=== PATIENT | male | born 1955 | race African-American/Black ===

== ENCOUNTER 2016-08-15 11:35 | Inpatient (IN) | payer OTHER ==
[2016-08-15 12:18] VITALS: BMI 24.0
--- NOTE | 2016-08-15 13:40 | HP ---
CIWA Score - CIWA Score Nausea/Vomitin Muscle Tremors: 3 Anxiety: 3 Agitation: 3 Paroxysmal Sweats: 1-Minimal Palms Moist Orientation: 0-Oriented Tacttile Disturbances: 2-Mild Itch/Numbness/Burn Auditory Disturbances: 2-Mild Harshness/Frighten Visual Disturbances: 2-Mild Sensitivity Headache: 2-Mild CIWA-Ar Total Score: 21 Admission ROS BHS - HPI Chief Complaint: I NEED HELP TO STOP DRINKING ALCOHOL Allergies/Adverse Reactions: Allergies Allergy/AdvReac Type Severity Reaction Status Date / Time morphine Allergy Severe Rash Verified 08/15/16 13:30 History of Present Illness: THIS 61 YEARS OLD RODAS WITH ALCOHOL DEPENDENCE WITH WITHDRAWAL SYMPTOM,LAST DETOX [facility] LAST SEIZURE 2013 SYNCOPE DEPRESSION S/P SURGERY BYPASS LEFT LEG IN 2014 AMBULATION WITH CANE IN 2016 LONGEST PERIOD OF SOBRIETY 7 YEARS HISTORY OF CANCER OF KIDNEY RIGHT UNDER THE CARE OF DOCTOR ,FOLLOWED UP WITH PMD ASTHMA HIV Exam Limitations: No Limitations - Ebola screening Have you traveled outside of the country in the last 21 days: No Have you had contact with anyone from an Ebola affected area: No Have you been sick,other than usual withdrawal symptoms: No Do you have a fever: No - Review of Systems Constitutional: Loss of Appetite, Malaise, Night Sweats, Changes in sleep, Weakness, Unintentional Wgt. Loss EENT: reports: Nose Congestion Respiratory: reports: No Symptoms reported Cardiac: reports: Palpitations GI: reports: Nausea, Poor Appetite, Vomiting, Abdominal cramping : reports: No Symptoms Reported Musculoskeletal: reports: Back Pain, Muscle Pain, Other (S/P VASCULAR SURGERY PF LEFT LEG) Integumentary: reports: Dryness Neuro: reports: Headache, Tremors Endocrine: reports: No Symptoms Reported Hematology: reports: Other (HIV) Psychiatric: reports: Depressed Patient History - Patient Medical History Hx Anemia: No Hx Asthma: Yes (ON ALBUTEROL INHALER) Hx Chronic Obstructive Pulmonary Disease (COPD): Yes Hx Cancer: No Hx Cardiac Disorders: Yes (S/P ANGIOPLASTY 3 VESSELS 06/25 ) Hx Congestive Heart Failure: No Hx Hypertension: Yes (NON COMPLIANCE) Hx Hypercholesterolemia: Yes (can't remember name of meds) Hx Pacemaker: No HX Cerebrovascular Accident: Yes (IN 2005) Hx Seizures: Yes (2014) Hx Dementia: No Hx Diabetes: No Hx Gastrointestinal Disorders: No Hx Liver Disease: No Hx Genitourinary Disorders: Yes (CANCER OF KIDNEY?) Hx Sexually Transmitted Disorders: Yes (Gonerrhea) Hx Renal Disease (ESRD): No Hx Thyroid Disease: No Hx Human Immunodeficiency Virus (HIV): Yes (atripla; last cd4 580 viral load 1000) Hx Hepatitis C: Yes Hx Depression: Yes (ON SEROQUEL) Hx Suicide Attempt: No Hx Bipolar Disorder: No Hx Schizophrenia: No Other Medical History: NO SUICIDAL,NO HOMICIDAL - Patient Surgical History Past Surgical History: Yes Hx Neurologic Surgery: No Hx Cataract Extraction: No Hx Cardiac Surgery: No Hx Lung Surgery: No Hx Breast Surgery: No Hx Breast Biopsy: No Hx Abdominal Surgery: No Hx Appendectomy: No Hx Cholecystectomy: No Hx Genitourinary Surgery: No Hx Section: No Hx Orthopedic Surgery: No Hx Hysterectomy: No Other Surgical History: left fem pop bypass 3 yrs ago Anesthesia Reaction: No - PPD History Previous Implant?: Yes Documented Results: Negative w/o proof Date: 09/30/14 PPD to be Administered?: Yes - Smoking Cessation Smoking history: Current every day smoker Have you smoked in the past 12 months: Yes Aproximately how many cigarettes per day: 5 Cigars Per Day: 0 Hx Chewing Tobacco Use: No Initiated information on smoking cessation: Yes 'Breaking Loose' booklet given: 08/15/16 - Substance & Tx. History Hx Alcohol Use: Yes Hx Substance Use: Yes Substance Use Type: Alcohol, Cocaine Hx Substance Use Treatment: Yes - Substances Abused Alcohol Route: Oral Frequency: Daily Amount used: 2 pints of sánchez Age of first use: 23 Date of Last Use: 08/14/16 Crack Route: Smoking Frequency: 1-2 times per week Amount used: 50$ Age of first use: 38 Date of Last Use: 08/14/16 Family Disease History - Family Disease History Family Disease History: Heart Disease: Father Admission Physical Exam BHS - Vital Signs Vital Signs: Vital Signs - 24 hr 08/15/16 12:15 Temperature 97.4 F L Pulse Rate 92 H Respiratory 18 Rate Blood Pressure 150/109 - Physical General Appearance: Yes: Moderate Distress, Tremorous, Irritable, Sweating, Anxious HEENTM: Yes: Nasal Congestion Respiratory: Yes: Lungs Clear Neck: Yes: Within Normal Limits Breast: Yes: Within Normal Limits Cardiology: Yes: Within Normal Limits, Regular Rhythm, Regular Rate, S1, S2 Abdominal: Yes: Within Normal Limits, Normal Bowel Sounds, Non Tender, Flat, Soft Genitourinary: Yes: Other (HISTORY OF CANCER OF RIGHT KIDNEY?) Back: Yes: Muscle Spasm Musculoskeletal: Yes: Back pain, Muscle Pain Extremities: Yes: Tremors, Other (S/P FEMOROPOPLITEAL BYPASS LEFT) Neurological: Yes: fruit sorter II-XII NML intact, Fully Oriented, Alert, Motor Strength 5/5 Integumentary: Yes: Dry Lymphatic: Yes: Within Normal Limits - Diagnostic (1) Alcohol dependence with uncomplicated withdrawal Current Visit: Yes Status: Acute (2) Cocaine dependence Current Visit: Yes Status: Acute (3) Seizure Current Visit: Yes Status: Acute (4) Syncope Current Visit: Yes Status: Acute (5) Depression Current Visit: Yes Status: Acute (6) HIV (human immunodeficiency virus infection) Current Visit: No Status: Acute (7) Asthma Current Visit: Yes Status: Acute (8) COPD (chronic obstructive pulmonary disease) Current Visit: Yes Status: Acute (9) Hepatitis C Current Visit: Yes Status: Acute (10) CAD (coronary artery disease) Current Visit: Yes Status: Acute (11) Status post angioplasty Current Visit: Yes Status: Acute (12) Old cerebrovascular accident without late effect Current Visit: Yes Status: Acute (13) Nicotine dependence Current Visit: Yes Status: Acute (14) Cancer of right kidney Current Visit: Yes Status: Acute (15) Weight loss Current Visit: Yes Status: Acute (16) Use of cane as ambulatory aid Current Visit: Yes Status: Acute Cleared for Admission [facility] - Detox or Rehab [facility] Level of Care: Medically Managed Detox Regimen/Protocol: Librium [facility] Breath Alcohol Content Breath Alcohol Content: 0 Urine Drug Screen - Results Drug Screen Negative: No Urine Drug Screen Results: MAXX-Cocaine, BZO-Benzodiazepines
[2016-08-15] MEDS ORDERED: P-EPHED 60MG/TRIPROLIDI 2.5MG TABLET PO PRN (14:13)
[2016-08-15] MEDS ORDERED: chlordiazePOXIDE HCL 25 MG CAPSULE PO PRN (14:13)
[2016-08-15] MEDS ORDERED: ACETAMINOPHEN 325 MG TABLET (FP) PO PRN (14:13)
[2016-08-15] MEDS ORDERED: MAG HYDROX/AL HYDROX/SIMETH 30 ML UNIT-DOSE CUP PO PRN (14:13)
[2016-08-15] MEDS ORDERED: MAGNESIUM HYDROX 2400MG/30ML ORAL SUSPENSION 30 ML CUP PO PRN (14:13)
[2016-08-15] MEDS ORDERED: LOPERAMIDE HCL 2 MG CAPSULE PO PRN (14:13)
[2016-08-15] MEDS ORDERED: MENTHOL/PHENOL 1 EACH UD MM PRN (14:13)
[2016-08-15] MEDS ORDERED: IBUPROFEN 400 MG TABLET (FP) PO PRN (14:13)
[2016-08-15] MEDS ORDERED: MAGNESIUM CITRATE 300 ML BOTTLE PO PRN (14:13)
[2016-08-15] MEDS ORDERED: hydrOXYzine PAMOATE 25 MG CAPSULE (FP) PO PRN (14:13)
[2016-08-15] MEDS ORDERED: chlordiazePOXIDE HCL 25 MG CAPSULE PO ONE (14:13)
[2016-08-15] MEDS ORDERED: guaiFENesin/D-METHORPHAN HB 10 ML UNIT-DOSE CUPS PO PRN (14:13)
--- NOTE | 2016-08-15 14:28 | PN ---
BHS Progress Note Note: HISTORY OF PULMONARY EMBOLISM
[2016-08-15 17:36] LABS: URINE APPEARANCE CLEAR; URINE BILIRUBIN NEGATIVE (NEGATIVE); URINE COLOR YELLOW; URINE GLUCOSE (UA) NEGATIVE (NEGATIVE); URINE KETONE NEGATIVE (NEGATIVE); URINE LEUK ESTERASE NEGATIVE (NEGATIVE); URINE NITRITE NEGATIVE (NEGATIVE); URINE UROBILINOGEN NEGATIVE E.U./dl (0.2-1.0)
[2016-08-15 17:49] LABS: URINE BLOOD 1+ (NEGATIVE); URINE PROTEIN 2+ (NEGATIVE)
[2016-08-15 17:58] LABS: URINE MUCUS RARE; URINE RBC 1 /hpf (0-3); URINE WBC 1 /hpf (3-5)
[2016-08-15] MEDS: chlordiazePOXIDE HCL 25 MG CAPSULE PO SCH ×2 (18:13→22:12)
[2016-08-15] MEDS: GABAPENTIN 400 MG CAPSULE (FP) PO SCH (22:12)
[2016-08-15] MEDS: hydrALAZINE HCL 50 MG TABLET (FP) PO SCH (22:12)
[2016-08-15] MEDS: THIAMINE HCL 100 MG TABLET (FP) PO SCH (22:12)
[2016-08-15] MEDS: CARVEDILOL 12.5 MG TABLET (FP) PO SCH (22:12)
[2016-08-15] MEDS: APIXABAN 5 MG TABLET PO SCH (22:12)
[2016-08-15] MEDS: diphenhydrAMINE HCL 50 MG CAPSULE PO PRN (22:13)
--- NOTE | 2016-08-16 00:03 | EKG ---
Test Reason : Blood Pressure : / mmHG Vent. Rate : 083 BPM Atrial Rate : 083 BPM P-R Int : 124 ms QRS Dur : 088 ms QT Int : 378 ms P-R-T Axes : 063 051 005 degrees QTc Int : 444 ms SINUS RHYTHM WITH FREQUENT PREMATURE VENTRICULAR COMPLEXES POSSIBLE LEFT ATRIAL ENLARGEMENT INFEROLATERAL ISCHEMIA ABNORMAL ECG WHEN COMPARED WITH ECG OF 15-SEP-2011 09:21, PREMATURE VENTRICULAR COMPLEXES ARE NOW PRESENT ST NOW DEPRESSED IN INFERIOR LEADS T-WAVE INVERSION IN LATERAL LEADS IS NOW PRESENT Confirmed by REYNA MADRIGAL, RENATO ([id number]) on 08/16/2016 12:03:30 AM Referred By: Confirmed By:RENATO ORELLANA MD
[2016-08-16] MEDS: hydrALAZINE HCL 50 MG TABLET (FP) PO SCH ×3 (05:57→22:17)
[2016-08-16] MEDS: chlordiazePOXIDE HCL 25 MG CAPSULE PO SCH ×4 (05:57→22:16)
[2016-08-16] MEDS: PRENATAL VITAMINS W/ FOLIC ACID TABLET (FP) PO SCH (10:09)
[2016-08-16] MEDS: GABAPENTIN 400 MG CAPSULE (FP) PO SCH ×2 (10:09→22:17)
[2016-08-16] MEDS: APIXABAN 5 MG TABLET PO SCH ×2 (10:09→22:17)
[2016-08-16] MEDS: amLODIPine BESYLATE 5 MG TABLET (FP) PO SCH (10:09)
[2016-08-16] MEDS: CARVEDILOL 12.5 MG TABLET (FP) PO SCH ×2 (10:09→22:17)
[2016-08-16] MEDS: ASPIRIN 81 MG CHEWABLE TABLETS PO SCH (10:09)
[2016-08-16 10:10] LABS: MCH 28.5 pg (25.7-33.7); MCHC 32.4 g/dl (32.0-35.9); MEAN CELL VOLUME 87.8 fl (80-96); PLATELET COUNT 125 K/MM3 (134-434); RDW 15.5 % (11.9-15.9); WHITE BLOOD COUNT 4.8 K/mm3 (4.0-10.0)
[2016-08-16] MEDS: CLOPIDOGREL BISULFATE 75 MG TABLET (FP) PO SCH (10:10)
[2016-08-16 10:23] LABS: ALBUMIN 3.5 g/dl (3.4-5.0); BILIRUBIN,TOTAL 0.6 mg/dL (0.2-1.0); CALCIUM 9.3 mg/dL (8.5-10.1); CREATININE 1.8 mg/dL (0.7-1.3); TOT PROT 7.6 g/dl (6.4-8.2)
[2016-08-16] MEDS: NIFEdipine E.R 60 MG TABLET (UD) PO SCH (10:41)
[2016-08-16] MEDS: ISOSORBIDE MONONITRATE 30 MG TAB.SR.24H (FP) PO SCH (10:41)
--- NOTE | 2016-08-16 11:41 | CONSULT ---
[facility] Psychiatric Consult - Data Date of interview: 08/16/16 Admission source: [facility] Identifying data: Readmission to [facility] for this 61 y/o AA male seeking detox treatment on for alcohol and cocaine (crack) dependence.Patient is single without children,homeless,unemployed and supported on [employer] funds. Substance Abuse History: - Smoking Cessation. Smoking history: Current every day smoker. Have you smoked in the past 12 months: Yes. Aproximately how many cigarettes per day: 5. Cigars Per Day: 0. Hx Chewing Tobacco Use: No. Initiated information on smoking cessation: Yes. 'Breaking Loose' booklet given : 08/15/16. - Substance & Tx. History. Hx Alcohol Use: Yes. Hx Substance Use : Yes. Substance Use Type: Alcohol, Cocaine. Hx Substance Use Treatment: Yes. - Substances Abused. Alcohol. Route: Oral. Frequency: Daily. Amount used: 2 pints of sánchez. Age of first use: 23. Date of Last Use: 08/14/16. * * Crack. Route: Smoking. Frequency: 1-2 times per week. Amount used: 50$. Age of first use: 38. Date of Last Use: 08/14/16. Confirmed by the patient. Medical History: Bronchial asthma,hypertension,CAD (post-angioplasty),CVA in 1989,COPD,alcohol-related withdrawal,hepatitis C,DVT in left leg, hypergcholesterolemia,left femoro-popliteal bypass,unclear history of Ca of right kidney and past treatment for gonorrhea. Psychiatric History: No history of psychiatric hospitalizations.Patient is however diagnossed with MDD and he is followed at the [facility] for medication management.He is on seroquel 100 mg po hs.No history of suicide attempts. Physical/Sexual Abuse/Trauma History: Patient denies. Additional Comment: Urine Drug Screen Results: MAXX-Cocaine, BZO- Benzodiazepines.Noted. Mental Status Exam - Mental Status Exam Alert and Oriented to: Time, Place, Person Cognitive Function: Good Patient Appearance: Well Groomed Mood: Hopeful, Euthymic Affect: Appropriate, Normal Range Patient Behavior: Fatigued, Appropriate, Cooperative Speech Pattern: Clear, Appropriate Voice Loudness: Normal Thought Process: Goal Oriented Thought Disorder: Not Present Hallucinations: Denies Suicidal Ideation: Denies Homicidal Ideation: Denies Insight/Judgement: Fair Sleep: Poorly, Difficulty falling asleep Appetite: Fair Gait/Station: Other (walks with a cane.) Psychiatric Findings - Problem List ([place] 1, 2,3) (1) Alcohol dependence with uncomplicated withdrawal Current Visit: Yes Status: Acute (2) Cocaine dependence Current Visit: Yes Status: Acute (3) Hepatitis C Current Visit: Yes Status: Acute (4) Nicotine dependence Current Visit: Yes Status: Acute (5) Old cerebrovascular accident without late effect Current Visit: Yes Status: Chronic (6) Status post angioplasty Current Visit: Yes Status: Chronic (7) Drug-induced mood disorder Current Visit: Yes Status: Acute (8) HIV (human immunodeficiency virus infection) Current Visit: Yes Status: Chronic (9) Asthma Current Visit: Yes Status: Chronic (10) CAD (coronary artery disease) Current Visit: Yes Status: Chronic (11) COPD (chronic obstructive pulmonary disease) Current Visit: Yes Status: Chronic (12) Cancer of right kidney Current Visit: Yes Status: Chronic - Initial Treatment Plan Initial Treatment Plan: Psychoeducation.Detoxification.Seroquel 100 mg po hs.Side effects/benefits discussed with patient.He agrees with this careplan.Observation.
--- NOTE | 2016-08-16 13:22 | PN ---
[facility] CIWA - CIWA Score Nausea/Vomitin-No Nausea/No Vomiting Muscle Tremors: 4-Moderate,w/Arms Extend Anxiety: 3 Agitation: 3 Paroxysmal Sweats: 3 Orientation: 1-Uncertain about Date Tacttile Disturbances: 2-Mild Itch/Numbness/Burn Auditory Disturbances: 0-None Visual Disturbances: 1-Very Mild Sensitivity Headache: 0-None Present CIWA-Ar Total Score: 17 S Progress Note (SOAP) Subjective: Tremors, Diarrhea, Interrupted sleep. Pt. currently ambulating with cane but requesting Wheelchair due to previous injury to sole left foot approx. 1 month ago. Pt. was evaluated at Er and given stitches for wound. Objective: PT. A & O X 2 (Disoriented about day / date). Scabbed wound noted on sole of left foot, near balls of feet. No bleeding, unusual discharge, or sign of infection noted.) 08/16/16 13:20 Vital Signs Temperature 95.6 F L 08/16/16 13:07 Pulse Rate 73 08/16/16 13:07 Respiratory Rate 18 08/16/16 13:07 Blood Pressure 110/72 08/16/16 13:07 O2 Sat by Pulse Oximetry (%) Laboratory Last Values WBC 4.8 K/mm3 (4.0-10.0) D 08/16/16 07:00 RBC 4.36 M/mm3 (4.00-5.60) 08/16/16 07:00 Hgb 12.4 GM/dL (11.7-16.9) 08/16/16 07:00 Hct 38.3 % (35.4-49) 08/16/16 07:00 MCV 87.8 fl (80-96) 08/16/16 07:00 MCHC 32.4 g/dl (32.0-35.9) 08/16/16 07:00 RDW 15.5 % (11.9-15.9) 08/16/16 07:00 Plt Count 125 K/MM3 (134-434) L 08/16/16 07:00 MPV 10.0 fl (7.5-11.1) 08/16/16 07:00 Sodium 137 mmol/L (136-145) 08/16/16 07:00 Potassium 4.0 mmol/L (3.5-5.1) 08/16/16 07:00 Chloride 103 mmol/L (98-107) 08/16/16 07:00 Carbon Dioxide 24 mmol/L (21-32) 08/16/16 07:00 Anion Gap 10 (8-16) 08/16/16 07:00 BUN 36 mg/dL (7-18) H D 08/16/16 07:00 Creatinine 1.8 mg/dL (0.7-1.3) H D 08/16/16 07:00 Creat Clearance w eGFR 38.30 (>60) 08/16/16 07:00 Random Glucose 141 mg/dL (74-106) H D 08/16/16 07:00 Calcium 9.3 mg/dL (8.5-10.1) 08/16/16 07:00 Total Bilirubin 0.6 mg/dL (0.2-1.0) D 08/16/16 07:00 AST 68 U/L (15-37) H D 08/16/16 07:00 ALT 55 U/L (12-78) D 08/16/16 07:00 Alkaline Phosphatase 106 U/L (45-117) 08/16/16 07:00 Total Protein 7.6 g/dl (6.4-8.2) 08/16/16 07:00 Albumin 3.5 g/dl (3.4-5.0) D 08/16/16 07:00 Urine Color Yellow 08/15/16 Unknown Urine Appearance Clear 08/15/16 Unknown Urine pH 5.0 (5.0-8.0) 08/15/16 Unknown Ur Specific [place] 1.020 (1.001-1.035) 08/15/16 Unknown Urine Protein 2+ (NEGATIVE) H 08/15/16 Unknown Urine Glucose (UA) Negative (NEGATIVE) 08/15/16 Unknown Urine Ketones Negative (NEGATIVE) 08/15/16 Unknown Urine Blood 1+ (NEGATIVE) H 08/15/16 Unknown Urine Nitrite Negative (NEGATIVE) 08/15/16 Unknown Urine Bilirubin Negative (NEGATIVE) 08/15/16 Unknown Urine Urobilinogen Negative E.U./dl (0.2-1.0) 08/15/16 Unknown Ur Leukocyte Esterase Negative (NEGATIVE) 08/15/16 Unknown Urine RBC 1 /hpf (0-3) 08/15/16 Unknown Urine WBC 1 /hpf (3-5) 08/15/16 Unknown Urine Mucus Rare 08/15/16 Unknown RPR Titer Nonreactive (NONREACTIVE) 08/16/16 07:00 LABS NOTED. 08/16/16 13:25 Assessment: 08/16/16 13:22 WITHDRAWAL SYMPTOMS. Plan: CONTINUE DETOX. WHEELCHAIR ORDERED FOR PT. DAQUAN BANDAGE WITH GAUZE FOR WOUND ON LEFT FOOT. PT. ADVISED TO FOLLOW-UP WITH [facility] REHAB MEDICAL PROVIDER AFTER DISCHARGE FROM DETOX FOR GENERAL MEDICAL ASSESSMENT, FOR ABNORMAL LAB VALUES, AND FOR HISTORY OF INJURY TO LEFT FOOT.
[2016-08-16] MEDS: THIAMINE HCL 100 MG TABLET (FP) PO SCH (22:16)
[2016-08-16] MEDS: diphenhydrAMINE HCL 50 MG CAPSULE PO PRN (22:17)
[2016-08-16] MEDS: QUEtiapine FUMARATE 100 MG TABLET (FP) PO SCH (22:17)
[2016-08-17] MEDS: hydrALAZINE HCL 50 MG TABLET (FP) PO SCH ×3 (05:46→22:14)
[2016-08-17] MEDS: chlordiazePOXIDE HCL 25 MG CAPSULE PO SCH ×2 (06:23→10:27)
--- NOTE | 2016-08-17 09:58 | PN ---
S CIWA - CIWA Score Nausea/Vomitin-No Nausea/No Vomiting Muscle Tremors: 3 Anxiety: 3 Agitation: 4-Moderately Restless Paroxysmal Sweats: 3 Orientation: 0-Oriented Tacttile Disturbances: 0-None Auditory Disturbances: 0-None Visual Disturbances: 0-None Headache: 0-None Present CIWA-Ar Total Score: 13 BHS Progress Note (SOAP) Subjective: ANXIETY,TREMORS,SWEATING,INTERRUPTED SLEEP,RESTLESS. Objective: 08/17/16 09:56 Vital Signs - 8 hr 08/17/16 08/17/16 08/17/16 03:39 06:33 09:48 Temperature 97.0 F L 96.2 F L Pulse Rate 64 53 L Respiratory 18 16 18 Rate Blood Pressure 107/68 121/80 Laboratory Tests 08/15/16 08/16/16 08/16/16 Unknown 07:00 07:00 WBC 4.8 D RBC 4.36 Hgb 12.4 Hct 38.3 MCV 87.8 MCHC 32.4 RDW 15.5 Plt Count 125 L MPV 10.0 Sodium 137 Potassium 4.0 Chloride 103 Carbon Dioxide 24 Anion Gap 10 BUN 36 H D Creatinine 1.8 H D Creat Clearance w eGFR 38.30 Random Glucose 141 H D Calcium 9.3 Total Bilirubin 0.6 D AST 68 H D ALT 55 D Alkaline Phosphatase 106 Total Protein 7.6 Albumin 3.5 D Urine Color Yellow Urine Appearance Clear Urine pH 5.0 Ur Specific [place] 1.020 Urine Protein 2+ H Urine Glucose (UA) Negative Urine Ketones Negative Urine Blood 1+ H Urine Nitrite Negative Urine Bilirubin Negative Urine Urobilinogen Negative Ur Leukocyte Esterase Negative Urine RBC 1 Urine WBC 1 Urine Mucus Rare RPR Titer 08/16/16 07:00 WBC RBC Hgb Hct MCV MCHC RDW Plt Count MPV Sodium Potassium Chloride Carbon Dioxide Anion Gap BUN Creatinine Creat Clearance w eGFR Random Glucose Calcium Total Bilirubin AST ALT Alkaline Phosphatase Total Protein Albumin Urine Color Urine Appearance Urine pH Ur Specific [place] Urine Protein Urine Glucose (UA) Urine Ketones Urine Blood Urine Nitrite Urine Bilirubin Urine Urobilinogen Ur Leukocyte Esterase Urine RBC Urine WBC Urine Mucus RPR Titer Nonreactive LABS NOTED Assessment: 08/17/16 09:57 WITHDRAWAL SX. Plan: CONTINUE DETOX
[2016-08-17] MEDS: ASPIRIN 81 MG CHEWABLE TABLETS PO SCH (10:27)
[2016-08-17] MEDS: PRENATAL VITAMINS W/ FOLIC ACID TABLET (FP) PO SCH (10:27)
[2016-08-17] MEDS: CLOPIDOGREL BISULFATE 75 MG TABLET (FP) PO SCH (10:27)
[2016-08-17] MEDS: ISOSORBIDE MONONITRATE 30 MG TAB.SR.24H (FP) PO SCH (10:27)
[2016-08-17] MEDS: NIFEdipine E.R 60 MG TABLET (UD) PO SCH (10:28)
[2016-08-17] MEDS: CARVEDILOL 12.5 MG TABLET (FP) PO SCH ×2 (10:28→22:14)
[2016-08-17] MEDS: APIXABAN 5 MG TABLET PO SCH ×2 (10:29→22:14)
[2016-08-17] MEDS: amLODIPine BESYLATE 5 MG TABLET (FP) PO SCH (10:29)
[2016-08-17] MEDS: GABAPENTIN 400 MG CAPSULE (FP) PO SCH ×2 (10:30→22:14)
[2016-08-17] MEDS: BACITRACIN 0.9 GM PACKET TP SCH ×2 (10:30→22:14)
[2016-08-17] MEDS: chlordiazePOXIDE 5 MG CAPSULE PO SCH ×2 (17:08→22:14)
[2016-08-17] MEDS: AMOX TR/POT CLAV 875MG/125MG TABLETS (FP) PO SCH (17:09)
[2016-08-17] MEDS: THIAMINE HCL 100 MG TABLET (FP) PO SCH (22:14)
[2016-08-17] MEDS: QUEtiapine FUMARATE 100 MG TABLET (FP) PO SCH (22:14)
[2016-08-17] MEDS: diphenhydrAMINE HCL 50 MG CAPSULE PO PRN (22:15)
[2016-08-18] MEDS: hydrALAZINE HCL 50 MG TABLET (FP) PO SCH ×3 (06:00→22:14)
[2016-08-18] MEDS: chlordiazePOXIDE 5 MG CAPSULE PO SCH ×2 (06:02→10:10)
[2016-08-18] MEDS: AMOX TR/POT CLAV 875MG/125MG TABLETS (FP) PO SCH ×2 (07:29→17:35)
[2016-08-18] MEDS: APIXABAN 5 MG TABLET PO SCH ×2 (10:10→22:14)
[2016-08-18] MEDS: BACITRACIN 0.9 GM PACKET TP SCH ×2 (10:10→22:14)
[2016-08-18] MEDS: CLOPIDOGREL BISULFATE 75 MG TABLET (FP) PO SCH (10:10)
[2016-08-18] MEDS: NIFEdipine E.R 60 MG TABLET (UD) PO SCH (10:10)
[2016-08-18] MEDS: ASPIRIN 81 MG CHEWABLE TABLETS PO SCH (10:10)
[2016-08-18] MEDS: CARVEDILOL 12.5 MG TABLET (FP) PO SCH ×2 (10:10→22:14)
[2016-08-18] MEDS: amLODIPine BESYLATE 5 MG TABLET (FP) PO SCH (10:11)
[2016-08-18] MEDS: GABAPENTIN 400 MG CAPSULE (FP) PO SCH ×2 (10:11→22:14)
[2016-08-18] MEDS: PRENATAL VITAMINS W/ FOLIC ACID TABLET (FP) PO SCH (10:11)
[2016-08-18] MEDS: ISOSORBIDE MONONITRATE 30 MG TAB.SR.24H (FP) PO SCH (10:11)
[2016-08-18] MEDS: chlordiazePOXIDE HCL 10 MG CAPSULE PO SCH ×2 (17:35→22:14)
--- NOTE | 2016-08-18 17:35 | PN ---
BHS Progress Note (SOAP) Subjective: SWEATING,INTERRUPTED SLEEP,RESTLESS Objective: 08/18/16 17:34 Vital Signs - 8 hr 08/18/16 08/18/16 13:16 17:24 Temperature 95.8 F L 96.0 F L Pulse Rate 81 81 Respiratory 18 16 Rate Blood Pressure 130/77 111/66 Laboratory Tests 08/15/16 08/16/16 08/16/16 Unknown 07:00 07:00 WBC 4.8 D RBC 4.36 Hgb 12.4 Hct 38.3 MCV 87.8 MCHC 32.4 RDW 15.5 Plt Count 125 L MPV 10.0 Sodium 137 Potassium 4.0 Chloride 103 Carbon Dioxide 24 Anion Gap 10 BUN 36 H D Creatinine 1.8 H D Creat Clearance w eGFR 38.30 Random Glucose 141 H D Calcium 9.3 Total Bilirubin 0.6 D AST 68 H D ALT 55 D Alkaline Phosphatase 106 Total Protein 7.6 Albumin 3.5 D Urine Color Yellow Urine Appearance Clear Urine pH 5.0 Ur Specific [place] 1.020 Urine Protein 2+ H Urine Glucose (UA) Negative Urine Ketones Negative Urine Blood 1+ H Urine Nitrite Negative Urine Bilirubin Negative Urine Urobilinogen Negative Ur Leukocyte Esterase Negative Urine RBC 1 Urine WBC 1 Urine Mucus Rare RPR Titer 08/16/16 07:00 WBC RBC Hgb Hct MCV MCHC RDW Plt Count MPV Sodium Potassium Chloride Carbon Dioxide Anion Gap BUN Creatinine Creat Clearance w eGFR Random Glucose Calcium Total Bilirubin AST ALT Alkaline Phosphatase Total Protein Albumin Urine Color Urine Appearance Urine pH Ur Specific [place] Urine Protein Urine Glucose (UA) Urine Ketones Urine Blood Urine Nitrite Urine Bilirubin Urine Urobilinogen Ur Leukocyte Esterase Urine RBC Urine WBC Urine Mucus RPR Titer Nonreactive LABS NOTED Assessment: 08/18/16 17:35 WITHDRAWAL SX. Plan: CONTINUE DETOX
--- NOTE | 2016-08-18 19:57 | PN ---
BHS Progress Note (SOAP) Subjective: RECEIVED NURSE CALL, LEFT INGUINAL BLEED AND 10/10 PAIN SINCE X 4 DAYS REGULAR BOWEL MOVEMENT X 1 08/18/16, "HAD BREAKFAST, LUNCH, AND DINNER" DENIES NAUSEA "COUNSELOR SHOULD FIND ME A PLACE" Objective: 08/18/16 19:52 OBSERVED PATIENT SITTING ON WHEEL CHAIR PUSHING SELF ON OH WAY, FROM ROOM TO NURSE STATION BACK TO HIS ROOM, RECOMMEND NPO FOR POSSIBLE SURGICAL PROCEDURE "WHY, NOTHING WRONG WITH ME" "I EAT ANYTHING I WANT" "I AM FINE" RE-STATEMENT REGARDING LEFT INGUINAL 10/10 PAIN AND BLEED "LITTLE PAIN" PER PATIENT STATEMENT PATIENT REFUSES PHYSICAL EXAMINATION "I JUST OUT THE REHAB" "I HAVE A LIST OF CRISIS CENTERS" Assessment: 08/18/16 19:57 DISCHARGE DATE 08/19/16 PATIENT CONCERNS NO AVAILABLE SPACE IN CRISIS CENTER PATIENT PREFERRED IN PATIENT FOLLOW UP CARE Plan: ENCOURAGE THE PATIENT OPENLY DISCUSS FOLLOW UP CARE WITH THE COUNSELOR
[2016-08-18] MEDS: QUEtiapine FUMARATE 100 MG TABLET (FP) PO SCH (22:14)
[2016-08-18] MEDS: diphenhydrAMINE HCL 50 MG CAPSULE PO PRN (22:14)
[2016-08-18] MEDS: THIAMINE HCL 100 MG TABLET (FP) PO SCH (22:31)
[2016-08-19] MEDS: chlordiazePOXIDE HCL 10 MG CAPSULE PO SCH ×2 (06:08→12:33)
[2016-08-19] MEDS: hydrALAZINE HCL 50 MG TABLET (FP) PO SCH ×2 (06:08→15:51)
[2016-08-19] MEDS: AMOX TR/POT CLAV 875MG/125MG TABLETS (FP) PO SCH (07:21)
[2016-08-19] MEDS: ASPIRIN 81 MG CHEWABLE TABLETS PO SCH (10:18)
[2016-08-19] MEDS: BACITRACIN 0.9 GM PACKET TP SCH (10:18)
[2016-08-19] MEDS: CARVEDILOL 12.5 MG TABLET (FP) PO SCH (10:18)
[2016-08-19] MEDS: GABAPENTIN 400 MG CAPSULE (FP) PO SCH (10:18)
[2016-08-19] MEDS: APIXABAN 5 MG TABLET PO SCH (10:18)
[2016-08-19] MEDS: ISOSORBIDE MONONITRATE 30 MG TAB.SR.24H (FP) PO SCH (10:18)
[2016-08-19] MEDS: NIFEdipine E.R 60 MG TABLET (UD) PO SCH (10:18)
[2016-08-19] MEDS: amLODIPine BESYLATE 5 MG TABLET (FP) PO SCH (10:18)
[2016-08-19] MEDS: CLOPIDOGREL BISULFATE 75 MG TABLET (FP) PO SCH (10:18)
[2016-08-19] MEDS: PRENATAL VITAMINS W/ FOLIC ACID TABLET (FP) PO SCH (10:18)
--- NOTE | 2016-08-19 11:54 | DS ---
[facility] Detox Discharge Summary Admission Date: 08/15/16 Discharge Date: 08/19/16 - History Present History: Alcohol Dependence, Cocaine Dependence Pertinent Past History: HEP C COPD HIV CAD - Physical Exam Results Vital Signs: Vital Signs Temperature 96.0 F L 08/19/16 10:06 Pulse Rate 76 08/19/16 10:06 Respiratory Rate 18 08/19/16 10:06 Blood Pressure 121/81 08/19/16 10:06 O2 Sat by Pulse Oximetry (%) Pertinent Admission Physical Exam Findings: WITHDRAWAL SX. Laboratory Last Values WBC 4.8 K/mm3 (4.0-10.0) D 08/16/16 07:00 RBC 4.36 M/mm3 (4.00-5.60) 08/16/16 07:00 Hgb 12.4 GM/dL (11.7-16.9) 08/16/16 07:00 Hct 38.3 % (35.4-49) 08/16/16 07:00 MCV 87.8 fl (80-96) 08/16/16 07:00 MCHC 32.4 g/dl (32.0-35.9) 08/16/16 07:00 RDW 15.5 % (11.9-15.9) 08/16/16 07:00 Plt Count 125 K/MM3 (134-434) L 08/16/16 07:00 MPV 10.0 fl (7.5-11.1) 08/16/16 07:00 Sodium 137 mmol/L (136-145) 08/16/16 07:00 Potassium 4.0 mmol/L (3.5-5.1) 08/16/16 07:00 Chloride 103 mmol/L (98-107) 08/16/16 07:00 Carbon Dioxide 24 mmol/L (21-32) 08/16/16 07:00 Anion Gap 10 (8-16) 08/16/16 07:00 BUN 36 mg/dL (7-18) H D 08/16/16 07:00 Creatinine 1.8 mg/dL (0.7-1.3) H D 08/16/16 07:00 Creat Clearance w eGFR 38.30 (>60) 08/16/16 07:00 Random Glucose 141 mg/dL (74-106) H D 08/16/16 07:00 Calcium 9.3 mg/dL (8.5-10.1) 08/16/16 07:00 Total Bilirubin 0.6 mg/dL (0.2-1.0) D 08/16/16 07:00 AST 68 U/L (15-37) H D 08/16/16 07:00 ALT 55 U/L (12-78) D 08/16/16 07:00 Alkaline Phosphatase 106 U/L (45-117) 08/16/16 07:00 Total Protein 7.6 g/dl (6.4-8.2) 08/16/16 07:00 Albumin 3.5 g/dl (3.4-5.0) D 08/16/16 07:00 Urine Color Yellow 08/15/16 Unknown Urine Appearance Clear 08/15/16 Unknown Urine pH 5.0 (5.0-8.0) 08/15/16 Unknown Ur Specific [place] 1.020 (1.001-1.035) 08/15/16 Unknown Urine Protein 2+ (NEGATIVE) H 08/15/16 Unknown Urine Glucose (UA) Negative (NEGATIVE) 08/15/16 Unknown Urine Ketones Negative (NEGATIVE) 08/15/16 Unknown Urine Blood 1+ (NEGATIVE) H 08/15/16 Unknown Urine Nitrite Negative (NEGATIVE) 08/15/16 Unknown Urine Bilirubin Negative (NEGATIVE) 08/15/16 Unknown Urine Urobilinogen Negative E.U./dl (0.2-1.0) 08/15/16 Unknown Ur Leukocyte Esterase Negative (NEGATIVE) 08/15/16 Unknown Urine RBC 1 /hpf (0-3) 08/15/16 Unknown Urine WBC 1 /hpf (3-5) 08/15/16 Unknown Urine Mucus Rare 08/15/16 Unknown RPR Titer Nonreactive (NONREACTIVE) 08/16/16 07:00 LABS NOTED - Treatment Hospital Course: Detox Protocol Followed, Detoxed Safely, Responded well, Discharged Condition Good, Rehab Referral Accepted - Medication Discharge Medications: Ambulatory Orders Acetaminophen [Tylenol] 650 mg PO PRN 08/15/16 Amlodipine Besylate [Norvasc -] 5 mg PO DAILY 08/15/16 Apixaban [Eliquis] 5 mg PO BID 08/15/16 Aspirin [ASA -] 81 mg PO DAILY 08/15/16 Carvedilol [Coreg -] 12.5 mg PO BID 08/15/16 Clopidogrel Bisulfate [Clopidogrel] 75 mg PO DAILY 08/15/16 Gabapentin 400 mg PO BID 08/15/16 Hydralazine HCl [Apresoline -] 50 mg PO TID 08/15/16 Isosorbide Mononitrate [Imdur -] 30 mg PO DAILY 08/15/16 Nifedipine [Nifedical Xl] 60 mg PO DAILY 08/15/16 Quetiapine Fumarate [Seroquel] 100 mg PO HS 08/15/16 Quetiapine Fumarate [Seroquel] 100 mg PO HS #30 tablet 08/16/16 - Diagnosis (1) Alcohol dependence with uncomplicated withdrawal Current Visit: Yes Status: Acute (2) Cocaine dependence Current Visit: Yes Status: Acute Qualifiers: Substance use status: uncomplicated Qualified Code(s): F14.20 - Cocaine dependence, uncomplicated (3) Hepatitis C Current Visit: Yes Status: Acute Qualifiers: Viral hepatitis chronicity: chronic Hepatic coma status: without hepatic coma Qualified Code(s): B18.2 - Chronic viral hepatitis C (4) History of pulmonary embolism Current Visit: Yes Status: Acute (5) Nicotine dependence Current Visit: Yes Status: Acute Qualifiers: Nicotine product type: cigarettes Substance use status: uncomplicated Qualified Code(s): F17.210 - Nicotine dependence, cigarettes, uncomplicated (6) Asthma Current Visit: Yes Status: Chronic Qualifiers: Asthma severity: mild intermittent Asthma complication type: uncomplicated Qualified Code(s): J45.20 - Mild intermittent asthma, uncomplicated (7) CAD (coronary artery disease) Current Visit: Yes Status: Chronic Qualifiers: Coronary Disease-Associated Artery/Lesion type: [place] artery [place] vs. transplanted heart: [place] heart Associated angina: without angina Qualified Code(s): I25.10 - Atherosclerotic heart disease of [place] coronary artery without angina pectoris (8) COPD (chronic obstructive pulmonary disease) Current Visit: Yes Status: Chronic (9) HIV (human immunodeficiency virus infection) Current Visit: Yes Status: Chronic - AMA Did Patient Leave Against Medical Advice: No
[2016-08-19 14:18] VITALS: BP 120/75; PULSE 74; TEMP 97.9
== END 2016-08-19 15:33 | disposition other institution (70) | DRG 774 ==
LOC: YASAS 11:35 → Y3N 13:36
PROVIDERS: ADMIT Internal Medicine; ATTEND Internal Medicine
PROC: HZ2ZZZZ Detoxification Services for Substance Abuse Treatment (ICD-10-PCS; principal; 2016-08-19)
DX: F10.230 Alcohol dependence with withdrawal, uncomplicated (principal); F14.20 Cocaine dependence, uncomplicated; F17.210 Nicotine dependence, cigarettes, uncomplicated; J45.20 Mild intermittent asthma, uncomplicated; J44.9 Chronic obstructive pulmonary disease, unspecified; I25.10 Atherosclerotic heart disease of native coronary artery without angina pectoris; Z95.5 Presence of coronary angioplasty implant and graft; B18.2 Chronic viral hepatitis C; Z86.73 Personal history of transient ischemic attack (TIA), and cerebral infarction without residual deficits; Z86.711 Personal history of pulmonary embolism; Z79.01 Long term (current) use of anticoagulants; Z21 Asymptomatic human immunodeficiency virus [HIV] infection status; Z59.0 Homelessness
CPT/HCPCS: 36415; 80053; 81003; 81015; 85027; 86593; 93005; 93010

== ENCOUNTER 2016-08-19 15:48 | Inpatient (IN) | payer OTHER ==
[2016-08-19] MEDS ORDERED: NICOTINE POLACRILEX 2 MG GUM BUC PRN (18:06)
[2016-08-19] MEDS ORDERED: MAGNESIUM HYDROX 2400MG/30ML ORAL SUSPENSION 30 ML CUP PO PRN (18:06)
[2016-08-19] MEDS ORDERED: P-EPHED 60MG/TRIPROLIDI 2.5MG TABLET PO PRN (18:06)
[2016-08-19] MEDS ORDERED: MAGNESIUM CITRATE 300 ML BOTTLE PO PRN (18:06)
[2016-08-19] MEDS ORDERED: MAG HYDROX/AL HYDROX/SIMETH 30 ML UNIT-DOSE CUP PO PRN (18:06)
[2016-08-19] MEDS ORDERED: NICOTINE 14 MG/24 HOURS TOPICAL PATCH TD PRN (18:06)
[2016-08-19] MEDS ORDERED: guaiFENesin/D-METHORPHAN HB 10 ML UNIT-DOSE CUPS PO PRN (18:06)
[2016-08-19] MEDS ORDERED: MENTHOL/PHENOL 1 EACH UD MM PRN (18:06)
[2016-08-19] MEDS ORDERED: ACETAMINOPHEN 325 MG TABLET (FP) PO PRN (18:06)
[2016-08-19] MEDS ORDERED: LOPERAMIDE HCL 2 MG CAPSULE PO PRN (18:06)
--- NOTE | 2016-08-19 18:06 | HP ---
[facility]ADR[facility] Rehab Assess/Revision - Admission History Admitted to Rehab from: [facility] [place] Date of Admission to Rehab: 08/19/16 - Findings Detox History & Physical reviewed: Yes Concur with findings: Yes Comments/Additional Findings: trasnferred from detox to rehab admission as per protocol
[2016-08-19] MEDS: QUEtiapine FUMARATE 100 MG TABLET (FP) PO SCH (21:59)
[2016-08-19] MEDS: CARVEDILOL 12.5 MG TABLET (FP) PO SCH (21:59)
[2016-08-19] MEDS: THIAMINE HCL 100 MG TABLET (FP) PO SCH (21:59)
[2016-08-19] MEDS: APIXABAN 5 MG TABLET PO SCH (22:00)
[2016-08-19] MEDS: diphenhydrAMINE HCL 50 MG CAPSULE PO PRN (22:01)
[2016-08-20] MEDS: AMOX TR/POT CLAV 875MG/125MG TABLETS (FP) PO SCH ×2 (07:10→17:28)
[2016-08-20] MEDS ORDERED: ASPIRIN 81 MG CHEWABLE TABLETS PO SCH (10:00)
[2016-08-20] MEDS: PRENATAL VITAMINS W/ FOLIC ACID TABLET (FP) PO SCH (10:04)
[2016-08-20] MEDS: CARVEDILOL 12.5 MG TABLET (FP) PO SCH (10:04)
[2016-08-20] MEDS: ASPIRIN COATED 81 MG TABLET.EC PO SCH (10:05)
[2016-08-20] MEDS: amLODIPine BESYLATE 5 MG TABLET (FP) PO SCH (10:05)
[2016-08-20] MEDS: APIXABAN 5 MG TABLET PO SCH ×2 (10:05→21:13)
[2016-08-20] MEDS: CLOPIDOGREL BISULFATE 75 MG TABLET (FP) PO SCH (10:05)
[2016-08-20] MEDS: NIFEdipine E.R 60 MG TABLET (UD) PO SCH (10:05)
[2016-08-20] MEDS: hydrALAZINE HCL 50 MG TABLET (FP) PO SCH (10:05)
[2016-08-20] MEDS: ISOSORBIDE MONONITRATE 30 MG TAB.SR.24H (FP) PO SCH (10:12)
--- NOTE | 2016-08-20 10:45 | HP ---
Psychiatrist Admission - Data Date of interview: 08/20/16 Admission source: 6N Identifying data: This is the second 5N inpatient rehabilitation admission for this 61 year old single black male unemployed on [employer] who is curretly homeless. Medical History: History of seizure last in 2014, left femoral popliteal bypass sx [id number], asthma, HIV, Gonorrhea(treated), CVA in 2005, HEP C, HEP B, Rt kidney Ca, HTN, COPD,Angioplasty in 06/2016, hypercholesterolemia, smokes cigarettes 5 a day. Psychiatric History: Patient reports first psychiatric contact 13 years ago during his treatment in rehabilitation unit, reports no history of psychiatric hospitalization, was diagnosed as MDD and currently on Seroquel 100 mg po hs, he sees the psychiatrist at he is followed at the [facility] for medication management.Seen by and continued medication. Physical/Sexual Abuse/Trauma History: Denies history of sexual physical and verbal abuse Vital Signs: Vital Signs - 24 hr 08/19/16 08/20/16 08/20/16 21:48 00:30 03:30 Temperature Pulse Rate 80 Respiratory 18 18 Rate Blood Pressure 139/84 08/20/16 07:19 Temperature 97.3 F L Pulse Rate 7 L Respiratory 18 Rate Blood Pressure 126/78 Allergies/Adverse Reactions: Allergies Allergy/AdvReac Type Severity Reaction Status Date / Time morphine Allergy Severe Rash Verified 08/15/16 13:30 Date of last physical exam: 08/19/16 Concur with the findings of this exam: Yes - Substance Abuse/Tx History Hx Alcohol Use: Yes (started drinking at age 23, daily 2 pints of sánchez) Hx Substance Use: Yes Substance Use Type: Alcohol (beer/vodka), Cocaine ($50 daily 2 times a week) Hx Substance Use Treatment: Yes - Admission Criteria Previous failed treatment: Yes Poor recovery environment: Yes Comorbidities: Yes Lacks judgement: Yes Mental Status Exam - Mental Status Exam Alert and Oriented to: Time, Place, Person Cognitive Function: Grossly Intact Patient Appearance: Well Groomed Mood: Depressed, Sad Affect: Mood Congruent Patient Behavior: Appropriate, Cooperative Speech Pattern: Clear, Appropriate Voice Loudness: Normal Thought Process: Goal Oriented Thought Disorder: Paranoid Ideation (states he geat paranoid about being asking quiestions, "don't know where you will use this information") Hallucinations: Denies ("if I tell you what you gonna do" then added when on drugs) Suicidal Ideation: Denies Homicidal Ideation: Denies Insight/Judgement: Fair Sleep: Fair Appetite: Fair Gait/Station: Other (patient in wheelchair) Psychiatric Findings - Problem List ([place] 1, 2,3) (1) Alcohol dependence Current Visit: No Status: Acute (2) Cocaine dependence Current Visit: No Status: Acute Qualifiers: Substance use status: uncomplicated Qualified Code(s): F14.20 - Cocaine dependence, uncomplicated - Initial Treatment Plan Initial Treatment Plan: will continue seroquel, monitor progress as needed.
--- NOTE | 2016-08-20 15:49 | PN ---
S Progress Note Note: INFECTED LEFT SCROTAL AREA WITH DRAINAGE,FURUNCLE WITH SPONTANEOUS DRAINAGE, TREATMENT KEFLEX 500 MGS PO Q 6HRS FOR 7 DAYS BACITRACIN OINTMENT BID MOTRIN 400 MGS PO Q 6 HRS PRN FOR PAIN CLOSE MONITORING
[2016-08-20] MEDS: CEPHALEXIN MONOHYDRATE 500 MG CAPSULE (UD) PO SCH (17:34)
[2016-08-20] MEDS: QUEtiapine FUMARATE 100 MG TABLET (FP) PO SCH (21:12)
[2016-08-20] MEDS: CARVEDILOL 6.25 MG TABLET (FP) PO SCH (21:12)
[2016-08-20] MEDS: THIAMINE HCL 100 MG TABLET (FP) PO SCH (21:12)
[2016-08-20] MEDS: BACITRACIN 0.9 GM PACKET TP SCH (21:12)
[2016-08-20] MEDS: diphenhydrAMINE HCL 50 MG CAPSULE PO PRN (21:14)
[2016-08-21] MEDS: CEPHALEXIN MONOHYDRATE 500 MG CAPSULE (UD) PO SCH ×4 (01:15→17:35)
[2016-08-21] MEDS: AMOX TR/POT CLAV 875MG/125MG TABLETS (FP) PO SCH ×2 (07:00→17:35)
[2016-08-21] MEDS: ISOSORBIDE MONONITRATE 30 MG TAB.SR.24H (FP) PO SCH (09:39)
[2016-08-21] MEDS: ASPIRIN COATED 81 MG TABLET.EC PO SCH (09:39)
[2016-08-21] MEDS: NIFEdipine E.R 60 MG TABLET (UD) PO SCH (09:39)
[2016-08-21] MEDS: PRENATAL VITAMINS W/ FOLIC ACID TABLET (FP) PO SCH (09:39)
[2016-08-21] MEDS: CLOPIDOGREL BISULFATE 75 MG TABLET (FP) PO SCH (09:39)
[2016-08-21] MEDS: amLODIPine BESYLATE 5 MG TABLET (FP) PO SCH (09:39)
[2016-08-21] MEDS: BACITRACIN 0.9 GM PACKET TP SCH ×2 (09:39→21:32)
[2016-08-21] MEDS: hydrALAZINE HCL 50 MG TABLET (FP) PO SCH (09:39)
[2016-08-21] MEDS: APIXABAN 5 MG TABLET PO SCH ×2 (11:00→21:32)
[2016-08-21] MEDS: CARVEDILOL 6.25 MG TABLET (FP) PO SCH (12:05)
[2016-08-21] MEDS: QUEtiapine FUMARATE 100 MG TABLET (FP) PO SCH (21:32)
[2016-08-21] MEDS: THIAMINE HCL 100 MG TABLET (FP) PO SCH (21:32)
[2016-08-21] MEDS: CARVEDILOL 12.5 MG TABLET (FP) PO SCH (21:34)
[2016-08-21] MEDS: diphenhydrAMINE HCL 50 MG CAPSULE PO PRN (21:34)
[2016-08-22] MEDS: CEPHALEXIN MONOHYDRATE 500 MG CAPSULE (UD) PO SCH ×5 (00:58→23:17)
[2016-08-22] MEDS: AMOX TR/POT CLAV 875MG/125MG TABLETS (FP) PO SCH ×2 (07:55→17:42)
[2016-08-22] MEDS: PRENATAL VITAMINS W/ FOLIC ACID TABLET (FP) PO SCH (10:31)
[2016-08-22] MEDS: BACITRACIN 0.9 GM PACKET TP SCH ×2 (10:32→21:53)
[2016-08-22] MEDS: hydrALAZINE HCL 50 MG TABLET (FP) PO SCH (10:32)
[2016-08-22] MEDS: ASPIRIN COATED 81 MG TABLET.EC PO SCH (10:32)
[2016-08-22] MEDS: amLODIPine BESYLATE 5 MG TABLET (FP) PO SCH (10:32)
[2016-08-22] MEDS: CLOPIDOGREL BISULFATE 75 MG TABLET (FP) PO SCH (10:32)
[2016-08-22] MEDS: CARVEDILOL 12.5 MG TABLET (FP) PO SCH ×2 (10:32→21:49)
[2016-08-22] MEDS: NIFEdipine E.R 60 MG TABLET (UD) PO SCH (10:32)
[2016-08-22] MEDS: ISOSORBIDE MONONITRATE 30 MG TAB.SR.24H (FP) PO SCH (10:32)
[2016-08-22] MEDS: APIXABAN 5 MG TABLET PO SCH ×2 (10:36→21:50)
[2016-08-22] MEDS: QUEtiapine FUMARATE 100 MG TABLET (FP) PO SCH (21:49)
[2016-08-22] MEDS: diphenhydrAMINE HCL 50 MG CAPSULE PO PRN (21:50)
[2016-08-22] MEDS: THIAMINE HCL 100 MG TABLET (FP) PO SCH (21:51)
[2016-08-23] MEDS: CEPHALEXIN MONOHYDRATE 500 MG CAPSULE (UD) PO SCH ×4 (06:34→23:56)
[2016-08-23] MEDS: AMOX TR/POT CLAV 875MG/125MG TABLETS (FP) PO SCH ×2 (07:37→16:58)
[2016-08-23] MEDS: BACITRACIN 0.9 GM PACKET TP SCH ×2 (09:40→21:43)
[2016-08-23] MEDS: CLOPIDOGREL BISULFATE 75 MG TABLET (FP) PO SCH (09:40)
[2016-08-23] MEDS: amLODIPine BESYLATE 5 MG TABLET (FP) PO SCH (09:40)
[2016-08-23] MEDS: ISOSORBIDE MONONITRATE 30 MG TAB.SR.24H (FP) PO SCH (09:40)
[2016-08-23] MEDS: CARVEDILOL 12.5 MG TABLET (FP) PO SCH ×2 (09:40→21:43)
[2016-08-23] MEDS: PRENATAL VITAMINS W/ FOLIC ACID TABLET (FP) PO SCH (09:42)
[2016-08-23] MEDS: NIFEdipine E.R 60 MG TABLET (UD) PO SCH (09:43)
[2016-08-23] MEDS: APIXABAN 5 MG TABLET PO SCH ×2 (09:43→21:44)
[2016-08-23] MEDS: hydrALAZINE HCL 50 MG TABLET (FP) PO SCH (09:46)
[2016-08-23] MEDS: ASPIRIN COATED 81 MG TABLET.EC PO SCH (09:46)
[2016-08-23] MEDS ORDERED: EMTRICITAB/RILPIVIRINE/TENOFOV 1 EACH TABLET PO ONE (13:45)
[2016-08-23] MEDS: GABAPENTIN 400 MG CAPSULE (FP) PO SCH ×2 (14:10→21:43)
[2016-08-23] MEDS: THIAMINE HCL 100 MG TABLET (FP) PO SCH (21:43)
[2016-08-23] MEDS: ATORVASTATIN CA 40 MG TABLET (FP) PO SCH (21:43)
[2016-08-23] MEDS: QUEtiapine FUMARATE 100 MG TABLET (FP) PO SCH (21:43)
[2016-08-23] MEDS: diphenhydrAMINE HCL 50 MG CAPSULE PO PRN (21:45)
[2016-08-24] MEDS: GABAPENTIN 400 MG CAPSULE (FP) PO SCH ×3 (06:34→21:26)
[2016-08-24] MEDS: CEPHALEXIN MONOHYDRATE 500 MG CAPSULE (UD) PO SCH ×4 (06:34→23:34)
[2016-08-24] MEDS: AMOX TR/POT CLAV 875MG/125MG TABLETS (FP) PO SCH ×2 (07:35→16:59)
[2016-08-24] MEDS: EMTRICITAB/RILPIVIRINE/TENOFOV 1 EACH TABLET PO SCH (07:35)
[2016-08-24] MEDS: PRENATAL VITAMINS W/ FOLIC ACID TABLET (FP) PO SCH (09:41)
[2016-08-24] MEDS: CARVEDILOL 12.5 MG TABLET (FP) PO SCH ×2 (09:42→21:26)
[2016-08-24] MEDS: CLOPIDOGREL BISULFATE 75 MG TABLET (FP) PO SCH (09:42)
[2016-08-24] MEDS: BACITRACIN 0.9 GM PACKET TP SCH ×2 (09:42→21:26)
[2016-08-24] MEDS: ISOSORBIDE MONONITRATE 30 MG TAB.SR.24H (FP) PO SCH (09:43)
[2016-08-24] MEDS: amLODIPine BESYLATE 5 MG TABLET (FP) PO SCH (09:44)
[2016-08-24] MEDS: APIXABAN 5 MG TABLET PO SCH ×2 (09:44→21:27)
[2016-08-24] MEDS: ASPIRIN COATED 81 MG TABLET.EC PO SCH (09:45)
[2016-08-24] MEDS: NIFEdipine E.R 60 MG TABLET (UD) PO SCH (09:45)
[2016-08-24] MEDS: hydrALAZINE HCL 50 MG TABLET (FP) PO SCH (09:45)
--- NOTE | 2016-08-24 11:05 | PN ---
Psychiatric Progress Note Vital Signs: Vital Signs Period Temp Pulse Resp BP Sys/Flanagan Pulse Ox Last 24 Hr 97.6 F 72 18-20 134/89 Date of Session: 08/24/16 Chief Complaint:: "I need to talk" HPI: Patient is addressing alcohol, cocaine , nicotine dependence comorbid Bipolar II disorder. ROS: History of seizure last in 2014, left femoral popliteal bypass sx [id number], asthma, HIV, Gonorrhea(treated), CVA in 2005, HEP C, HEP B, Rt kidney Ca, HTN, COPD,Angioplasty in 06/2016, hypercholesterolemia, Current Medications: Active Medications Generic Name Dose Route Start Last Admin Trade Name Freq PRN Reason Stop Dose Admin Acetaminophen 650 mg 08/19/16 18:06 Tylenol - PO Q4H PRN FEVER OR PAIN Al Hydroxide/Mg Hydroxide 30 ml 08/19/16 18:06 Mylanta Oral Suspension - PO Q6H PRN DYSPEPSIA Amlodipine Besylate 5 mg 08/20/16 10:00 08/24/16 09:44 Norvasc - PO 5 mg DAILY GORDON Administration Amoxicillin/Clavulanate Potassium 1 tab 08/20/16 08:00 08/24/16 07:35 Augmentin - 875mg Tablet PO 08/27/16 07:59 1 tab BID@0800,1730 GORDON Administration Apixaban 5 mg 08/19/16 22:00 08/24/16 09:44 Eliquis - PO 5 mg BID GORDON Administration Aspirin 81 mg 08/20/16 10:00 08/24/16 09:45 Ecotrin - PO Not Given DAILY GORDON Atorvastatin Calcium 40 mg 08/23/16 22:00 08/23/16 21:43 Lipitor - PO 40 mg HS GORDON Administration Bacitracin 0.9 gm 08/20/16 22:00 08/24/16 09:42 Bacitracin - TP 0.9 gm BID GORDON Administration Carvedilol 12.5 mg 08/21/16 22:00 08/24/16 09:42 Coreg - PO 12.5 mg BID GORDON Administration Cephalexin HCl 500 mg 08/20/16 18:00 08/24/16 06:34 Keflex - PO 500 mg Q6HPO GORDON Administration Clopidogrel Bisulfate 75 mg 08/20/16 10:00 08/24/16 09:42 Plavix - PO 75 mg DAILY GORDON Administration Diphenhydramine HCl 50 mg 08/19/16 18:06 08/23/16 21:45 Benadryl - PO 50 mg HSMR1 PRN Administration FOR ITCHING Emtricitabine/Rilpivirine/Tenofovir 1 each 08/24/16 08:00 08/24/16 07:35 Complera - PO 1 each DAILY@0800 [facility] Administration Eucalyptus/Menthol/Phenol/Sorbitol 1 each 08/19/16 18:06 Cepastat Lozenge - MM Q4H PRN SORE THROAT Gabapentin 400 mg 08/23/16 14:00 08/24/16 06:34 Neurontin - PO 400 mg TID GORDON Administration Guaifenesin 10 ml 08/19/16 18:06 Robitussin Dm - PO Q6H PRN COUGH Hydralazine HCl 50 mg 08/20/16 10:00 08/24/16 09:45 Apresoline - PO Not Given DAILY GORDON Hydroxyzine Pamoate 50 mg 08/19/16 18:06 Vistaril - PO Q4H PRN AGITATION Isosorbide Mononitrate 30 mg 08/20/16 10:00 08/24/16 09:43 Imdur - PO 30 mg DAILY [facility] Administration Loperamide HCl 4 mg 08/19/16 18:06 Imodium - PO Q6H PRN DIARRHEA Magnesium Hydroxide 30 ml 08/19/16 18:06 Milk Of Magnesia - PO DAILY PRN CONSTIPATION Nicotine 14 mg 08/19/16 18:06 Nicoderm Patch - TD DAILY PRN WITHDRAWAL(CONT SUBST) Nicotine Polacrilex 2 mg 08/19/16 18:06 Nicorette Gum - BUC Q2H PRN NICOTINE REPLACEMENT RX Nifedipine 60 mg 08/20/16 10:00 08/24/16 09:45 Procardia Xl - PO 60 mg DAILY [facility] Administration Multivit/Folic Acid/Iron 1 tab 08/20/16 10:00 08/24/16 09:41 Vitamins (Sjr) - PO 1 tab DAILY [facility] Administration Pseudoephedrine/Triprolidine 1 combo 08/19/16 18:06 Actifed - PO TID PRN NASAL CONGESTION Quetiapine Fumarate 100 mg 08/19/16 22:00 08/23/16 21:43 Seroquel - PO 100 mg HS GORDON Administration Thiamine HCl 100 mg 08/19/16 22:00 08/23/16 21:43 Vitamin B1 - PO 100 mg HS G[facility] Administration Current Side Effect: No Lab tests ordered: No Lab tests reviewed: Yes Provider note:: Patient reports that he needs a psychiatric evaluatuion for his housing signed by , he reports that was diagnosed as Bipolar disorder,he wants to continue treatment at [facility] and also needs assistence with his housing, patient is easilly aggravated during this session, he was adviced to focus on his recovery and and follow with his councelor suggestions for aftercare. Patient visibly upset and anxious about his aftercare, supportive therapy has been provided. Total face to face time:: 35 Mental Status Exam - Mental Status Exam Alert and Oriented to: Time, Place, Person Cognitive Function: Grossly Intact Patient Appearance: Well Groomed Mood: Angry (sarcastic), Anxious, Irritable Affect: Mood Congruent Speech Pattern: Appropriate Voice Loudness: Normal Thought Process: Goal Oriented Thought Disorder: Not Present Hallucinations: None, Denies Suicidal Ideation: Denies Homicidal Ideation: Denies Insight/Judgement: Fair Sleep: Fair Appetite: Fair Muscle strength/Tone: Normal Gait/Station: Normal Psychiatric Treatment Plan - Problem List (1) Alcohol dependence Current Visit: No (2) Cocaine dependence Current Visit: No Qualifiers: Substance use status: uncomplicated Qualified Code(s): F14.20 - Cocaine dependence, uncomplicated (3) Bipolar II disorder Current Visit: Yes
[2016-08-24] MEDS: ATORVASTATIN CA 40 MG TABLET (FP) PO SCH (21:26)
[2016-08-24] MEDS: QUEtiapine FUMARATE 100 MG TABLET (FP) PO SCH (21:26)
[2016-08-24] MEDS: THIAMINE HCL 100 MG TABLET (FP) PO SCH (21:26)
[2016-08-24] MEDS: diphenhydrAMINE HCL 50 MG CAPSULE PO PRN (23:34)
[2016-08-25] MEDS: GABAPENTIN 400 MG CAPSULE (FP) PO SCH ×3 (06:49→21:29)
[2016-08-25] MEDS: CEPHALEXIN MONOHYDRATE 500 MG CAPSULE (UD) PO SCH ×3 (06:49→17:27)
[2016-08-25] MEDS: EMTRICITAB/RILPIVIRINE/TENOFOV 1 EACH TABLET PO SCH (07:04)
[2016-08-25] MEDS: AMOX TR/POT CLAV 875MG/125MG TABLETS (FP) PO SCH (07:04)
[2016-08-25] MEDS: APIXABAN 5 MG TABLET PO SCH ×2 (09:36→21:29)
[2016-08-25] MEDS: CARVEDILOL 12.5 MG TABLET (FP) PO SCH ×2 (09:37→21:29)
[2016-08-25] MEDS: CLOPIDOGREL BISULFATE 75 MG TABLET (FP) PO SCH (09:37)
[2016-08-25] MEDS: BACITRACIN 0.9 GM PACKET TP SCH ×2 (09:37→21:29)
[2016-08-25] MEDS: ISOSORBIDE MONONITRATE 30 MG TAB.SR.24H (FP) PO SCH (09:37)
[2016-08-25] MEDS: NIFEdipine E.R 60 MG TABLET (UD) PO SCH (09:37)
[2016-08-25] MEDS: PRENATAL VITAMINS W/ FOLIC ACID TABLET (FP) PO SCH (09:37)
[2016-08-25] MEDS: ASPIRIN COATED 81 MG TABLET.EC PO SCH (09:38)
[2016-08-25] MEDS: hydrALAZINE HCL 50 MG TABLET (FP) PO SCH (09:38)
[2016-08-25] MEDS: amLODIPine BESYLATE 5 MG TABLET (FP) PO SCH (09:38)
[2016-08-25] MEDS: ATORVASTATIN CA 40 MG TABLET (FP) PO SCH (21:29)
[2016-08-25] MEDS: THIAMINE HCL 100 MG TABLET (FP) PO SCH (21:29)
[2016-08-25] MEDS: QUEtiapine FUMARATE 100 MG TABLET (FP) PO SCH (21:29)
[2016-08-26] MEDS: CEPHALEXIN MONOHYDRATE 500 MG CAPSULE (UD) PO SCH ×5 (00:28→23:15)
[2016-08-26] MEDS: GABAPENTIN 400 MG CAPSULE (FP) PO SCH ×3 (06:48→22:03)
[2016-08-26] MEDS: EMTRICITAB/RILPIVIRINE/TENOFOV 1 EACH TABLET PO SCH (07:39)
[2016-08-26] MEDS: BACITRACIN 0.9 GM PACKET TP SCH ×2 (09:27→22:02)
[2016-08-26] MEDS: CLOPIDOGREL BISULFATE 75 MG TABLET (FP) PO SCH (09:27)
[2016-08-26] MEDS: ASPIRIN COATED 81 MG TABLET.EC PO SCH (09:27)
[2016-08-26] MEDS: ISOSORBIDE MONONITRATE 30 MG TAB.SR.24H (FP) PO SCH (09:27)
[2016-08-26] MEDS: hydrALAZINE HCL 50 MG TABLET (FP) PO SCH (09:27)
[2016-08-26] MEDS: CARVEDILOL 12.5 MG TABLET (FP) PO SCH ×2 (09:27→22:01)
[2016-08-26] MEDS: NIFEdipine E.R 60 MG TABLET (UD) PO SCH (09:27)
[2016-08-26] MEDS: PRENATAL VITAMINS W/ FOLIC ACID TABLET (FP) PO SCH (09:28)
[2016-08-26] MEDS: APIXABAN 5 MG TABLET PO SCH ×2 (09:28→22:00)
[2016-08-26] MEDS ORDERED: NICOTINE 7 MG/24 HOURS TOPICAL PATCH TD PRN (10:00)
[2016-08-26] MEDS ORDERED: ATORVASTATIN CA 20 MG TABLET (FP) ONE (21:59)
[2016-08-26] MEDS: QUEtiapine FUMARATE 100 MG TABLET (FP) PO SCH (22:00)
[2016-08-26] MEDS: diphenhydrAMINE HCL 50 MG CAPSULE PO PRN (22:02)
[2016-08-26] MEDS: ATORVASTATIN CA 40 MG TABLET (FP) PO SCH (22:03)
[2016-08-26] MEDS: THIAMINE HCL 100 MG TABLET (FP) PO SCH (22:04)
[2016-08-27] MEDS: CEPHALEXIN MONOHYDRATE 500 MG CAPSULE (UD) PO SCH ×3 (06:38→17:09)
[2016-08-27] MEDS: GABAPENTIN 400 MG CAPSULE (FP) PO SCH ×3 (06:38→21:58)
[2016-08-27] MEDS: EMTRICITAB/RILPIVIRINE/TENOFOV 1 EACH TABLET PO SCH (07:00)
[2016-08-27] MEDS: CLOPIDOGREL BISULFATE 75 MG TABLET (FP) PO SCH (09:32)
[2016-08-27] MEDS: BACITRACIN 0.9 GM PACKET TP SCH ×2 (09:32→21:58)
[2016-08-27] MEDS: PRENATAL VITAMINS W/ FOLIC ACID TABLET (FP) PO SCH (09:32)
[2016-08-27] MEDS: ASPIRIN COATED 81 MG TABLET.EC PO SCH (09:33)
[2016-08-27] MEDS: APIXABAN 5 MG TABLET PO SCH ×2 (09:34→21:59)
--- NOTE | 2016-08-27 11:55 | PN ---
NINOSKAS Progress Note Note: refusing medication refuses to sign papers desires bp monitoring as he is wary of side effects requests bp check
[2016-08-27] MEDS: CARVEDILOL 12.5 MG TABLET (FP) PO SCH ×2 (12:18→21:58)
[2016-08-27] MEDS: hydrALAZINE HCL 50 MG TABLET (FP) PO SCH (12:18)
[2016-08-27] MEDS: NIFEdipine E.R 60 MG TABLET (UD) PO SCH (12:18)
[2016-08-27] MEDS: ISOSORBIDE MONONITRATE 30 MG TAB.SR.24H (FP) PO SCH (12:18)
[2016-08-27] MEDS: hydrOXYzine PAMOATE 50 MG CAPSULE (FP) PO PRN (14:45)
[2016-08-27] MEDS: THIAMINE HCL 100 MG TABLET (FP) PO SCH (21:58)
[2016-08-27] MEDS: QUEtiapine FUMARATE 100 MG TABLET (FP) PO SCH (21:58)
[2016-08-27] MEDS: ATORVASTATIN CA 40 MG TABLET (FP) PO SCH (21:58)
[2016-08-27] MEDS: diphenhydrAMINE HCL 50 MG CAPSULE PO PRN (22:00)
[2016-08-28] MEDS: GABAPENTIN 400 MG CAPSULE (FP) PO SCH ×3 (06:56→21:30)
[2016-08-28] MEDS: EMTRICITAB/RILPIVIRINE/TENOFOV 1 EACH TABLET PO SCH (07:25)
[2016-08-28] MEDS: CARVEDILOL 12.5 MG TABLET (FP) PO SCH ×2 (09:16→21:30)
[2016-08-28] MEDS: ISOSORBIDE MONONITRATE 30 MG TAB.SR.24H (FP) PO SCH (09:16)
[2016-08-28] MEDS: PRENATAL VITAMINS W/ FOLIC ACID TABLET (FP) PO SCH (09:16)
[2016-08-28] MEDS: NIFEdipine E.R 60 MG TABLET (UD) PO SCH (09:16)
[2016-08-28] MEDS: BACITRACIN 0.9 GM PACKET TP SCH ×2 (09:17→21:30)
[2016-08-28] MEDS: CLOPIDOGREL BISULFATE 75 MG TABLET (FP) PO SCH (09:17)
[2016-08-28] MEDS: ASPIRIN COATED 81 MG TABLET.EC PO SCH (09:17)
[2016-08-28] MEDS: hydrALAZINE HCL 50 MG TABLET (FP) PO SCH (09:17)
[2016-08-28] MEDS: hydrOXYzine PAMOATE 50 MG CAPSULE (FP) PO PRN (09:25)
[2016-08-28] MEDS: APIXABAN 5 MG TABLET PO SCH ×2 (10:19→21:33)
[2016-08-28] MEDS: QUEtiapine FUMARATE 100 MG TABLET (FP) PO SCH (21:30)
[2016-08-28] MEDS: ATORVASTATIN CA 40 MG TABLET (FP) PO SCH (21:30)
[2016-08-28] MEDS: THIAMINE HCL 100 MG TABLET (FP) PO SCH (21:30)
[2016-08-29] MEDS: EMTRICITAB/RILPIVIRINE/TENOFOV 1 EACH TABLET PO SCH (07:35)
[2016-08-29] MEDS: GABAPENTIN 400 MG CAPSULE (FP) PO SCH ×3 (07:35→21:15)
[2016-08-29] MEDS: hydrOXYzine PAMOATE 50 MG CAPSULE (FP) PO PRN (07:37)
[2016-08-29] MEDS: ASPIRIN COATED 81 MG TABLET.EC PO SCH (10:39)
[2016-08-29] MEDS: CARVEDILOL 12.5 MG TABLET (FP) PO SCH ×2 (10:39→21:15)
[2016-08-29] MEDS: CLOPIDOGREL BISULFATE 75 MG TABLET (FP) PO SCH (10:39)
[2016-08-29] MEDS: PRENATAL VITAMINS W/ FOLIC ACID TABLET (FP) PO SCH (10:39)
[2016-08-29] MEDS: hydrALAZINE HCL 50 MG TABLET (FP) PO SCH (10:39)
[2016-08-29] MEDS: NIFEdipine E.R 60 MG TABLET (UD) PO SCH (10:39)
[2016-08-29] MEDS: BACITRACIN 0.9 GM PACKET TP SCH ×2 (10:39→21:14)
[2016-08-29] MEDS: ISOSORBIDE MONONITRATE 30 MG TAB.SR.24H (FP) PO SCH (10:39)
[2016-08-29] MEDS: APIXABAN 5 MG TABLET PO SCH ×2 (10:40→21:16)
[2016-08-29] MEDS: QUEtiapine FUMARATE 100 MG TABLET (FP) PO SCH (21:15)
[2016-08-29] MEDS: diphenhydrAMINE HCL 50 MG CAPSULE PO PRN (21:15)
[2016-08-29] MEDS: ATORVASTATIN CA 40 MG TABLET (FP) PO SCH (21:15)
[2016-08-29] MEDS: THIAMINE HCL 100 MG TABLET (FP) PO SCH (21:16)
[2016-08-30] MEDS: GABAPENTIN 400 MG CAPSULE (FP) PO SCH ×3 (06:14→21:51)
[2016-08-30] MEDS: EMTRICITAB/RILPIVIRINE/TENOFOV 1 EACH TABLET PO SCH (07:01)
[2016-08-30] MEDS: ASPIRIN COATED 81 MG TABLET.EC PO SCH (10:15)
[2016-08-30] MEDS: ISOSORBIDE MONONITRATE 30 MG TAB.SR.24H (FP) PO SCH (10:15)
[2016-08-30] MEDS: CARVEDILOL 12.5 MG TABLET (FP) PO SCH ×2 (10:15→21:52)
[2016-08-30] MEDS: hydrALAZINE HCL 50 MG TABLET (FP) PO SCH (10:16)
[2016-08-30] MEDS: NIFEdipine E.R 60 MG TABLET (UD) PO SCH (10:16)
[2016-08-30] MEDS: BACITRACIN 0.9 GM PACKET TP SCH ×2 (10:16→21:51)
[2016-08-30] MEDS: CLOPIDOGREL BISULFATE 75 MG TABLET (FP) PO SCH (10:16)
[2016-08-30] MEDS: PRENATAL VITAMINS W/ FOLIC ACID TABLET (FP) PO SCH (10:16)
[2016-08-30] MEDS: APIXABAN 5 MG TABLET PO SCH ×2 (10:18→21:52)
[2016-08-30] MEDS: hydrOXYzine PAMOATE 50 MG CAPSULE (FP) PO PRN (10:20)
[2016-08-30] MEDS: THIAMINE HCL 100 MG TABLET (FP) PO SCH (21:51)
[2016-08-30] MEDS: QUEtiapine FUMARATE 100 MG TABLET (FP) PO SCH (21:51)
[2016-08-30] MEDS: ATORVASTATIN CA 40 MG TABLET (FP) PO SCH (21:51)
[2016-08-30] MEDS: diphenhydrAMINE HCL 50 MG CAPSULE PO PRN (21:52)
[2016-08-31] MEDS: GABAPENTIN 400 MG CAPSULE (FP) PO SCH ×3 (06:32→21:40)
[2016-08-31] MEDS: EMTRICITAB/RILPIVIRINE/TENOFOV 1 EACH TABLET PO SCH (07:24)
[2016-08-31] MEDS: APIXABAN 5 MG TABLET PO SCH ×2 (09:35→21:41)
[2016-08-31] MEDS: ASPIRIN COATED 81 MG TABLET.EC PO SCH (09:36)
[2016-08-31] MEDS: BACITRACIN 0.9 GM PACKET TP SCH ×2 (09:36→21:40)
[2016-08-31] MEDS: hydrALAZINE HCL 50 MG TABLET (FP) PO SCH (09:36)
[2016-08-31] MEDS: CLOPIDOGREL BISULFATE 75 MG TABLET (FP) PO SCH (09:36)
[2016-08-31] MEDS: CARVEDILOL 12.5 MG TABLET (FP) PO SCH ×2 (09:36→21:40)
[2016-08-31] MEDS: PRENATAL VITAMINS W/ FOLIC ACID TABLET (FP) PO SCH (09:36)
[2016-08-31] MEDS: ISOSORBIDE MONONITRATE 30 MG TAB.SR.24H (FP) PO SCH (09:36)
[2016-08-31] MEDS: NIFEdipine E.R 60 MG TABLET (UD) PO SCH (09:37)
[2016-08-31] MEDS: hydrOXYzine PAMOATE 50 MG CAPSULE (FP) PO PRN (09:38)
[2016-08-31] MEDS: QUEtiapine FUMARATE 100 MG TABLET (FP) PO SCH (21:40)
[2016-08-31] MEDS: diphenhydrAMINE HCL 50 MG CAPSULE PO PRN (21:40)
[2016-08-31] MEDS: ATORVASTATIN CA 40 MG TABLET (FP) PO SCH (21:40)
[2016-08-31] MEDS: THIAMINE HCL 100 MG TABLET (FP) PO SCH (21:40)
[2016-09-01] MEDS: GABAPENTIN 400 MG CAPSULE (FP) PO SCH ×3 (06:38→21:49)
[2016-09-01] MEDS: EMTRICITAB/RILPIVIRINE/TENOFOV 1 EACH TABLET PO SCH (07:27)
[2016-09-01] MEDS: ASPIRIN COATED 81 MG TABLET.EC PO SCH (09:39)
[2016-09-01] MEDS: hydrALAZINE HCL 50 MG TABLET (FP) PO SCH (09:39)
[2016-09-01] MEDS: CARVEDILOL 12.5 MG TABLET (FP) PO SCH ×2 (09:39→21:49)
[2016-09-01] MEDS: BACITRACIN 0.9 GM PACKET TP SCH ×2 (09:39→21:56)
[2016-09-01] MEDS: CLOPIDOGREL BISULFATE 75 MG TABLET (FP) PO SCH (09:39)
[2016-09-01] MEDS: ISOSORBIDE MONONITRATE 30 MG TAB.SR.24H (FP) PO SCH (09:39)
[2016-09-01] MEDS: PRENATAL VITAMINS W/ FOLIC ACID TABLET (FP) PO SCH (09:40)
[2016-09-01] MEDS: NIFEdipine E.R 60 MG TABLET (UD) PO SCH (09:40)
[2016-09-01] MEDS: APIXABAN 5 MG TABLET PO SCH ×2 (09:40→21:57)
[2016-09-01] MEDS: hydrOXYzine PAMOATE 50 MG CAPSULE (FP) PO PRN (09:43)
[2016-09-01] MEDS: ATORVASTATIN CA 40 MG TABLET (FP) PO SCH (21:49)
[2016-09-01] MEDS: QUEtiapine FUMARATE 100 MG TABLET (FP) PO SCH (21:49)
[2016-09-01] MEDS: diphenhydrAMINE HCL 50 MG CAPSULE PO PRN (21:49)
[2016-09-01] MEDS: THIAMINE HCL 100 MG TABLET (FP) PO SCH (21:49)
[2016-09-02] MEDS: GABAPENTIN 400 MG CAPSULE (FP) PO SCH ×3 (06:26→21:39)
[2016-09-02] MEDS: EMTRICITAB/RILPIVIRINE/TENOFOV 1 EACH TABLET PO SCH (07:25)
[2016-09-02] MEDS: BACITRACIN 0.9 GM PACKET TP SCH ×2 (09:29→21:40)
[2016-09-02] MEDS: PRENATAL VITAMINS W/ FOLIC ACID TABLET (FP) PO SCH (09:29)
[2016-09-02] MEDS: APIXABAN 5 MG TABLET PO SCH ×2 (09:29→21:40)
[2016-09-02] MEDS: CARVEDILOL 12.5 MG TABLET (FP) PO SCH ×2 (09:29→21:39)
[2016-09-02] MEDS: ISOSORBIDE MONONITRATE 30 MG TAB.SR.24H (FP) PO SCH (09:29)
[2016-09-02] MEDS: ASPIRIN COATED 81 MG TABLET.EC PO SCH (09:29)
[2016-09-02] MEDS: NIFEdipine E.R 60 MG TABLET (UD) PO SCH (09:29)
[2016-09-02] MEDS: hydrALAZINE HCL 50 MG TABLET (FP) PO SCH (09:29)
[2016-09-02] MEDS: CLOPIDOGREL BISULFATE 75 MG TABLET (FP) PO SCH (09:29)
[2016-09-02] MEDS: hydrOXYzine PAMOATE 50 MG CAPSULE (FP) PO PRN (09:30)
[2016-09-02] MEDS: ATORVASTATIN CA 40 MG TABLET (FP) PO SCH (21:39)
[2016-09-02] MEDS: THIAMINE HCL 100 MG TABLET (FP) PO SCH (21:39)
[2016-09-02] MEDS: QUEtiapine FUMARATE 100 MG TABLET (FP) PO SCH (21:39)
[2016-09-02] MEDS: diphenhydrAMINE HCL 50 MG CAPSULE PO PRN (21:40)
[2016-09-03] MEDS: GABAPENTIN 400 MG CAPSULE (FP) PO SCH (06:16)
[2016-09-03 07:09] VITALS: BP 126/81; PULSE 65; TEMP 97.2
[2016-09-03] MEDS: EMTRICITAB/RILPIVIRINE/TENOFOV 1 EACH TABLET PO SCH (07:27)
--- NOTE | 2016-09-03 08:08 | PN ---
Psychiatric Progress Note Vital Signs: Vital Signs Period Temp Pulse Resp BP Sys/Flanagan Pulse Ox Last 24 Hr 97.2 F 65-73 18-18 126-138/81-92 Date of Session: 09/03/16 Chief Complaint:: Discharge visit HPI: Patient addressed Alcohol and Cocaine dependence comorbid with Bipolar II disorder. ROS: Multiple medical problems. Current Medications: Active Medications Generic Name Dose Route Start Last Admin Trade Name Freq PRN Reason Stop Dose Admin Acetaminophen 650 mg 08/19/16 18:06 Tylenol - PO Q4H PRN FEVER OR PAIN Al Hydroxide/Mg Hydroxide 30 ml 08/19/16 18:06 Mylanta Oral Suspension - PO Q6H PRN DYSPEPSIA Apixaban 5 mg 08/19/16 22:00 09/02/16 21:40 Eliquis - PO 5 mg BID [facility] Administration Aspirin 81 mg 08/20/16 10:00 09/02/16 09:29 Ecotrin - PO 81 mg DAILY [facility] Administration Atorvastatin Calcium 40 mg 08/23/16 22:00 09/02/16 21:39 Lipitor - PO 40 mg HS [facility] Administration Bacitracin 0.9 gm 08/20/16 22:00 09/02/16 21:40 Bacitracin - TP 0.9 gm BID [facility] Administration Carvedilol 12.5 mg 08/21/16 22:00 09/02/16 21:39 Coreg - PO 12.5 mg BID [facility] Administration Clopidogrel Bisulfate 75 mg 08/20/16 10:00 09/02/16 09:29 Plavix - PO 75 mg DAILY [facility] Administration Diphenhydramine HCl 50 mg 08/19/16 18:06 09/02/16 21:40 Benadryl - PO 50 mg HSMR1 PRN Administration FOR ITCHING Emtricitabine/Rilpivirine/Tenofovir 1 each 08/24/16 08:00 09/03/16 07:27 Complera - PO 1 each DAILY@0800 [facility] Administration Eucalyptus/Menthol/Phenol/Sorbitol 1 each 08/19/16 18:06 Cepastat Lozenge - MM Q4H PRN SORE THROAT Gabapentin 400 mg 08/23/16 14:00 09/03/16 06:16 Neurontin - PO 400 mg TID [facility] Administration Guaifenesin 10 ml 08/19/16 18:06 Robitussin Dm - PO Q6H PRN COUGH Hydralazine HCl 50 mg 08/20/16 10:00 09/02/16 09:29 Apresoline - PO 50 mg DAILY [facility] Administration Hydroxyzine Pamoate 50 mg 08/19/16 18:06 09/02/16 09:30 Vistaril - PO 50 mg Q4H PRN Administration AGITATION Isosorbide Mononitrate 30 mg 08/20/16 10:00 09/02/16 09:29 Imdur - PO 30 mg DAILY [facility] Administration Loperamide HCl 4 mg 08/19/16 18:06 Imodium - PO Q6H PRN DIARRHEA Magnesium Hydroxide 30 ml 08/19/16 18:06 Milk Of Magnesia - PO DAILY PRN CONSTIPATION Nicotine 7 mg 08/26/16 10:00 Nicoderm Patch - TD DAILY PRN WITHDRAWAL(CONT SUBST) Nicotine Polacrilex 2 mg 08/19/16 18:06 Nicorette Gum - BUC Q2H PRN NICOTINE REPLACEMENT RX Nifedipine 60 mg 08/20/16 10:00 09/02/16 09:29 Procardia Xl - PO 60 mg DAILY [facility] Administration Multivit/Folic Acid/Iron 1 tab 08/20/16 10:00 09/02/16 09:29 Vitamins (Sjr) - PO 1 tab DAILY [facility] Administration Pseudoephedrine/Triprolidine 1 combo 08/19/16 18:06 Actifed - PO TID PRN NASAL CONGESTION Quetiapine Fumarate 100 mg 08/19/16 22:00 09/02/16 21:39 Seroquel - PO 100 mg HS GORDON Administration Thiamine HCl 100 mg 08/19/16 22:00 09/02/16 21:39 Vitamin B1 - PO 100 mg HS GORDON Administration Current Side Effect: No Lab tests ordered: No Lab tests reviewed: Yes Provider note:: Patient completed this program today .He has met his treatment goals and will continue to address his issues on outpatient basis at NA and AA meetings in [facility],supported by [facility]..Patient continues to find that Serouel 100 mg po hs will help to reduce his mood instability,insomnia.Script for 30 days provided. Psychotherapy has been provided including relapse prevention , support and coping skills utilization to maintain recovery. Patient is stable for discharge today. Patient is stable for discharge today. Total face to face time:: 30 Mental Status Exam - Mental Status Exam Alert and Oriented to: Time, Place, Person Cognitive Function: Grossly Intact Patient Appearance: Well Groomed Mood: Euthymic Affect: Mood Congruent, Normal Range Patient Behavior: Cooperative Speech Pattern: Clear Voice Loudness: Normal Thought Process: Goal Oriented Thought Disorder: Not Present Hallucinations: Denies Suicidal Ideation: Denies Homicidal Ideation: Denies Insight/Judgement: Fair Sleep: Fair Appetite: Good Muscle strength/Tone: Normal Gait/Station: Normal Psychiatric Treatment Plan - Problem List (1) Bipolar II disorder Current Visit: Yes (2) Alcohol dependence Current Visit: No (3) Cocaine dependence Current Visit: No Qualifiers: Substance use status: uncomplicated Qualified Code(s): F14.20 - Cocaine dependence, uncomplicated (4) Drug-induced mood disorder Current Visit: No (5) Hepatitis C Current Visit: Yes Qualifiers: Viral hepatitis chronicity: chronic Hepatic coma status: without hepatic coma Qualified Code(s): B18.2 - Chronic viral hepatitis C
[2016-09-03] MEDS: CARVEDILOL 12.5 MG TABLET (FP) PO SCH (09:13)
[2016-09-03] MEDS: PRENATAL VITAMINS W/ FOLIC ACID TABLET (FP) PO SCH (09:13)
[2016-09-03] MEDS: hydrALAZINE HCL 50 MG TABLET (FP) PO SCH (09:13)
[2016-09-03] MEDS: BACITRACIN 0.9 GM PACKET TP SCH (09:13)
[2016-09-03] MEDS: ASPIRIN COATED 81 MG TABLET.EC PO SCH (09:13)
[2016-09-03] MEDS: NIFEdipine E.R 60 MG TABLET (UD) PO SCH (09:13)
[2016-09-03] MEDS: ISOSORBIDE MONONITRATE 30 MG TAB.SR.24H (FP) PO SCH (09:13)
[2016-09-03] MEDS: CLOPIDOGREL BISULFATE 75 MG TABLET (FP) PO SCH (09:14)
[2016-09-03] MEDS: APIXABAN 5 MG TABLET PO SCH (09:14)
== END 2016-09-03 10:12 | disposition home or self-care (01) | DRG 772 ==
LOC: YASAS 15:48 → Y5N 15:49
PROVIDERS: ADMIT Psychiatry & Neurology Psychiatry; ATTEND Psychiatry & Neurology Psychiatry
PROC: HZ42ZZZ Group Counseling for Substance Abuse Treatment, Cognitive-Behavioral (ICD-10-PCS; principal; 2016-09-03)
DX: F10.20 Alcohol dependence, uncomplicated (principal); F14.20 Cocaine dependence, uncomplicated; F19.24 Other psychoactive substance dependence with psychoactive substance-induced mood disorder; F31.81 Bipolar II disorder; B18.2 Chronic viral hepatitis C; I10 Essential (primary) hypertension; E78.00 Pure hypercholesterolemia, unspecified; J44.9 Chronic obstructive pulmonary disease, unspecified; Z86.69 Personal history of other diseases of the nervous system and sense organs; Z86.73 Personal history of transient ischemic attack (TIA), and cerebral infarction without residual deficits; Z85.528 Personal history of other malignant neoplasm of kidney; Z59.0 Homelessness; F17.210 Nicotine dependence, cigarettes, uncomplicated

== ENCOUNTER 2019-05-29 15:42 | Inpatient (IN) | payer BC, OTHER ==
[2019-05-29 19:03] VITALS: BMI 23.1
--- NOTE | 2019-05-29 20:51 | HP ---
CIWA Score Nausea/Vomitin-Mild Nausea/No Vomiting Muscle Tremors: 2 Anxiety: 3 Agitation: 3 Paroxysmal Sweats: 2 Orientation: 0-Oriented Tacttile Disturbances: 0-None Auditory Disturbances: 0-None Visual Disturbances: 0-None Headache: 1-Very Mild CIWA-Ar Total Score: 12 - Admission Criteria OASAS Guidelines: Admission for Medically Managed Detox: Requires at least one of the followin. CIWA greater than 12 2. Seizures within the past 24 hours 3. Delirium tremens within the past 24 hours 4. Hallucinations within the past 24 hours 5. Acute intervention needed for co occurring medical disorder 6. Acute intervention needed for co occurring psychiatric disorder 7. Severe withdrawal that cannot be handled at a lower level of care (continued vomiting, continued diarrhea, abnormal vital signs) requiring intravenous medication and/or fluids 8. Patient presents the following: Seizures, delirium tremens or hallucinations in the past 12 hours, Acute intervention needed for co-occurring med or psych disorder (pt has done 3 days of detox elsewhere) Admission Criteria Met: Admission criteria met Admitting History and Physical - Smoking History Smoking history: Current every day smoker Have you smoked in the past 12 months: Yes Aproximately how many cigarettes per day: 5 - Alcohol/Substance Use Hx Alcohol Use: Yes (started drinking at age 23, daily 2 pints of sánchez) Admission [facility] Chief Complaint: drinking alcohol and cocaine use Allergies/Adverse Reactions: Allergies Allergy/AdvReac Type Severity Reaction Status Date / Time No Known Allergies Allergy Verified 05/29/19 18:45 History of Present Illness: 64 yo with multiple medical problems, HIV pos (h/o IVDA), seizures 2017, peterson catheter with external urinary bag, LE PAD with bypass in 2017, CVA, CAD with stent placement, uses cane/walker for ambulation says was in the ER and admitted to hospital for 2-3 days and then sent here to complete detox and rehab from alcohol. Pt states he gave his discharge papers to the test car driver who brought him here. Pt states he wasn't feeling well about 3 days ago and so an ambulance called and pt went to ER. Says blood work was done and given medications for the time he was there. Feeling better now. States he needs to complete detox and then go to rehab. Pt is in supportive housing. Pt does not know names of his medications Alcohol- 1-2 pints/day. h/o seizures- a year ago [facility] DUR- no meds Utox- pos for brock, BABAR-0 - Ebola screening Have you traveled outside of the country in the last 21 days: No Have you had contact with anyone from an Ebola affected area: No Do you have a fever: No - Review of Systems Constitutional: No Symptoms Reported EENT: reports: No Symptoms Reported Respiratory: reports: No Symptoms reported Cardiac: reports: No Symptoms Reported GI: reports: No Symptoms Reported : reports: No Symptoms Reported Musculoskeletal: reports: No Symptoms Reported Integumentary: reports: No Symptoms Reported Neuro: reports: No Symptoms reported Endocrine: reports: No Symptoms Reported Hematology: reports: No Symptoms Reported Psychiatric: reports: No Sypmtoms Reported Other Systems: Reviewed and Negative Patient History - Patient Medical History Hx Anemia: No Hx Asthma: Yes Hx Chronic Obstructive Pulmonary Disease (COPD): No Hx Cancer: No Hx Cardiac Disorders: Yes (stent ) Hx Congestive Heart Failure: No Hx Hypertension: Yes Hx Hypercholesterolemia: Yes (can't remember name of meds) Hx Pacemaker: No HX Cerebrovascular Accident: Yes (IN 2005) Hx Seizures: Yes (2014) Hx Dementia: No Hx Diabetes: No Hx Gastrointestinal Disorders: No Hx Liver Disease: Yes Hx Genitourinary Disorders: No Hx Sexually Transmitted Disorders: Yes (HIV) Hx Renal Disease (ESRD): Yes Hx Thyroid Disease: No Hx Human Immunodeficiency Virus (HIV): Yes (Julissa; last cd4 580 viral load ~ 100) Hx Hepatitis C: Yes Hx Depression: Yes Hx Suicide Attempt: No Hx Bipolar Disorder: No Hx Schizophrenia: No - Patient Surgical History Past Surgical History: Yes Hx Neurologic Surgery: No Hx Cataract Extraction: No Hx Cardiac Surgery: Yes (stent) Hx Lung Surgery: No Hx Breast Surgery: No Hx Breast Biopsy: No Hx Abdominal Surgery: No Hx Appendectomy: No Hx Cholecystectomy: No Hx Genitourinary Surgery: No Hx Section: No Hx Orthopedic Surgery: No Hx Hysterectomy: No Other Surgical History: left fem pop bypass 3 yrs ago Anesthesia Reaction: No - PPD History Date: 08/17/16 - Smoking Cessation Smoking history: Current every day smoker Have you smoked in the past 12 months: Yes Aproximately how many cigarettes per day: 20 Cigars Per Day: 0 Hx Chewing Tobacco Use: No Initiated information on smoking cessation: Yes 'Breaking Loose' booklet given: 05/29/19 - Substance & Tx. History Hx Alcohol Use: Yes - Substances abused Alcohol Substance route: Oral Frequency: Daily Amount used: 2pints of vodka/day Age of first use: 13 Date of last use: 05/28/19 Crack Substance route: Smoking Frequency: Daily Amount used: $50-75/day Age of first use: 30 Date of last use: 05/26/19 Admission Physical Exam [facility] - Vital Signs Vital Signs: Vital Signs - 24 hr 05/29/19 19:00 Temperature 98.4 F Pulse Rate 89 Respiratory 16 Rate Blood Pressure 134/77 - Physical General Appearance: Yes: Within Normal Limits, Disheveled, Thin, Other (with urine catheter bag) HEENTM: Yes: Within Normal Limits, EOMI, Hearing grossly Normal Respiratory: Yes: Within Normal Limits, Lungs Clear Neck: Yes: Within Normal Limits Cardiology: Yes: Within Normal Limits, Regular Rhythm Abdominal: Yes: Within Normal Limits Genitourinary: Yes: Other (urine bag with peterson in place due to ureter/urethra) Back: Yes: Within Normal Limits Musculoskeletal: Yes: Other (with PAD clot and bypass done) Extremities: Yes: Within Normal Limits (uses cane- multiple scars from bypass surgeries) Neurological: Yes: Fully Oriented, Other (mobility limited, uses cane to move) Integumentary: Yes: Other (darkened skin) Lymphatic: Yes: Within Normal Limits - Diagnostic (1) Alcohol dependence with uncomplicated withdrawal Current Visit: No Status: Acute (2) Cocaine dependence Current Visit: No Status: Acute Qualifiers: Substance use status: uncomplicated Qualified Code(s): F14.20 - Cocaine dependence, uncomplicated (3) Depression Current Visit: No Status: Acute (4) Seizure Current Visit: No Status: Acute (5) CAD (coronary artery disease) Current Visit: No Status: Chronic Qualifiers: Coronary Disease-Associated Artery/Lesion type: [place] artery [place] vs. transplanted heart: [place] heart Associated angina: without angina Qualified Code(s): I25.10 - Atherosclerotic heart disease of [place] coronary artery without angina pectoris (6) HIV (human immunodeficiency virus infection) Current Visit: No Status: Chronic (7) Old cerebrovascular accident without late effect Current Visit: No Status: Chronic Breathalyzer - Breathalyzer Breathalyzer: 0 Urine Drug Screen - Test Device Lot number: [id number] Expiration date: 02/06/21 - Control Is test valid?: Yes - Results Drug screen NEGATIVE: No Urine drug screen results: [facility] Admission - Rehab Decision to Admit Inpatient rehab admission?: No
[2019-05-29] MEDS ORDERED: LORazepam 1 MG TABLET PO PRN (21:02)
[2019-05-29] MEDS ORDERED: MELATONIN 5 MG TABLETS PO PRN (21:09)
[2019-05-29] MEDS ORDERED: NICOTINE POLACRILEX 4 MG GUM BUC PRN (21:09)
[2019-05-29] MEDS ORDERED: MAG HYDROX/AL HYDROX/SIMETH 30 ML UNIT-DOSE CUP PO PRN (21:09)
[2019-05-29] MEDS ORDERED: IBUPROFEN 400 MG TABLET (FP) PO PRN (21:09)
[2019-05-29] MEDS ORDERED: BISMUTH SUBSALICYLATE 524 MG/30 ML UD PO PRN (21:09)
[2019-05-29] MEDS ORDERED: MENTHOL/PHENOL 1 EACH UD MM PRN (21:09)
[2019-05-29] MEDS ORDERED: MAGNESIUM HYDROX 2400MG/30ML ORAL SUSPENSION 30 ML CUP PO PRN (21:09)
[2019-05-29] MEDS ORDERED: MAGNESIUM CITRATE 300 ML BOTTLE PO PRN (21:09)
[2019-05-29] MEDS ORDERED: METHOCARBAMOL 500 MG TABLET PO PRN (21:09)
[2019-05-29] MEDS ORDERED: ACETAMINOPHEN 325 MG TABLET (FP) PO PRN ×2 (21:09)
[2019-05-29] MEDS ORDERED: APIXABAN 5 MG TABLET PO SCH (22:00)
[2019-05-29] MEDS: LORazepam 0.5 MG TABLET PO SCH (22:18)
[2019-05-29] MEDS: GABAPENTIN 400 MG CAPSULE (FP) PO SCH (22:18)
[2019-05-29] MEDS: APIXABAN 5 MG TABLET PO SCH (22:48)
[2019-05-29] MEDS: CARVEDILOL 12.5 MG TABLET (FP) PO SCH (22:48)
[2019-05-29] MEDS: THIAMINE HCL 100 MG TABLET (FP) PO SCH (23:03)
[2019-05-30] MEDS: LORazepam 0.5 MG TABLET PO SCH ×4 (05:52→22:15)
[2019-05-30] MEDS: GABAPENTIN 400 MG CAPSULE (FP) PO SCH ×3 (05:53→22:15)
--- NOTE | 2019-05-30 09:06 | CONSULT ---
[facility] Psychiatric Consult - Data Date of interview: 05/30/19 Admission source: Hospital ED Identifying data: Mr Valentin Barker is a 64 years old single Black male, father of 4 children, unemployed receiving SSI, live in a studio apt seeking detox treatment for alcohol and cocaine Substance Abuse History: Reports history of alcohol and cocaine use. Refer to addiction counselor's summary for further information Medical History: Significant bronchial asthma/COPD, hypertension, dyslipidemia, coronary heart disease (post-angioplasty), history of CVA in 1989, alcohol- related seizure, hepatitis C, DVT in left leg, pulmonary embolism, cancer of right kidney, treatment for gonorrhea and left femoro-popliteal bypass,unclear hist Ca of right kidney. Smokes cigarettes 1 ppd Psychiatric History: Patient is known to this facility from previous admissions. Reports that he was diagnosed with MDD years ago and has been receiving outpatient psychiatric treatment at [facility] for approximately 15 years. Reports that he is currently prescribed Seroquel 100 mg/hs. Denies previous paychiatric hospitalization or suicidal attempt. At present, denies experencing depressive symptoms, S/H ideations. However, reports sleeping poorly. Physical/Sexual Abuse/Trauma History: Reports serving in the [employer] from 1972 to 1976. Discharge was dishonorable Additional Comment: Reports history of multiple previous arrests including multiple felony convictions for drug related offenses Mental Status Exam - Mental Status Exam Alert and Oriented to: Time, Place, Person Cognitive Function: Fair Patient Appearance: Disheveled Mood: Hopeful, Euthymic Patient Behavior: Cooperative Speech Pattern: Clear Voice Loudness: Normal Thought Process: Intact, Goal Oriented Hallucinations: Denies Suicidal Ideation: Denies Homicidal Ideation: Denies Insight/Judgement: Poor Sleep: Poorly Appetite: Good Muscle strength/Tone: Normal Gait/Station: Normal Psychiatric Findings - Problem List ([place] 1, 2,3) (1) MDD (major depressive disorder) Current Visit: Yes Status: Chronic (2) Substance-induced sleep disorder Current Visit: Yes Status: Acute (3) Alcohol dependence with uncomplicated withdrawal Current Visit: No Status: Acute (4) Cocaine dependence Current Visit: No Status: Acute Qualifiers: Substance use status: uncomplicated Qualified Code(s): F14.20 - Cocaine dependence, uncomplicated (5) Nicotine dependence Current Visit: No Status: Chronic Qualifiers: Nicotine product type: cigarettes Substance use status: uncomplicated Qualified Code(s): F17.210 - Nicotine dependence, cigarettes, uncomplicated (6) Asthma Current Visit: No Status: Chronic Qualifiers: Asthma severity: mild intermittent Asthma complication type: uncomplicated Qualified Code(s): J45.20 - Mild intermittent asthma, uncomplicated (7) COPD (chronic obstructive pulmonary disease) Current Visit: No Status: Chronic (8) CAD (coronary artery disease) Current Visit: No Status: Chronic Qualifiers: Coronary Disease-Associated Artery/Lesion type: [place] artery [place] vs. transplanted heart: [place] heart Associated angina: without angina Qualified Code(s): I25.10 - Atherosclerotic heart disease of [place] coronary artery without angina pectoris (9) Status post angioplasty Current Visit: No Status: Resolved (10) Hepatitis C Current Visit: No Status: Resolved Qualifiers: Viral hepatitis chronicity: chronic Hepatic coma status: without hepatic coma Qualified Code(s): B18.2 - Chronic viral hepatitis C (11) History of pulmonary embolism Current Visit: No Status: Resolved (12) HIV (human immunodeficiency virus infection) Current Visit: No Status: Chronic (13) Old cerebrovascular accident without late effect Current Visit: No Status: Chronic - Initial Treatment Plan Initial Treatment Plan: 1) Continue Seroquel 100 mg po HS. 2) Continue inpatient detoxfication
[2019-05-30] MEDS ORDERED: NIFEdipine E.R. 30 MG TABLET (FP) PO SCH (10:00)
[2019-05-30] MEDS: CARVEDILOL 12.5 MG TABLET (FP) PO SCH ×2 (10:45→22:15)
[2019-05-30] MEDS: CLOPIDOGREL BISULFATE 75 MG TABLET (FP) PO SCH (10:45)
[2019-05-30] MEDS: amLODIPine BESYLATE 5 MG TABLET (FP) PO SCH (10:45)
[2019-05-30] MEDS: PRENATAL VITAMINS W/ FOLIC ACID TABLET (FP) PO SCH (10:45)
[2019-05-30] MEDS: ISOSORBIDE MONONITRATE 30 MG TAB.SR.24H (FP) PO SCH (10:45)
[2019-05-30] MEDS: APIXABAN 5 MG TABLET PO SCH ×2 (10:45→22:15)
--- NOTE | 2019-05-30 11:07 | PN ---
S CIWA - CIWA Score Nausea/Vomitin-No Nausea/No Vomiting Muscle Tremors: 2 Anxiety: 2 Agitation: 2 Paroxysmal Sweats: No Perspiration Orientation: 0-Oriented Tacttile Disturbances: 1-Very Mild Itch/Numbness Auditory Disturbances: 0-None Visual Disturbances: 0-None Headache: 1-Very Mild CIWA-Ar Total Score: 8 BHS Progress Note (SOAP) Subjective: alert,irritable,anxious,interrupted sleep,tremor,interrupted sleep Objective: 05/30/19 11:05 Vital Signs Temperature 98.1 F 05/30/19 09:28 Pulse Rate 92 H 05/30/19 09:28 Respiratory Rate 18 05/30/19 09:28 Blood Pressure 117/76 05/30/19 09:28 O2 Sat by Pulse Oximetry (%) Assessment: 05/30/19 11:06 withdrawal symptom Plan: continue detox ativan regimen,seizure precaution
[2019-05-30] MEDS: EMTRICITAB/RILPIVIRI/TENOF ALA (ODEFSEY) TABLET PO SCH (13:40)
[2019-05-30] MEDS: THIAMINE HCL 100 MG TABLET (FP) PO SCH (22:15)
[2019-05-30] MEDS: QUEtiapine FUMARATE 100 MG TABLET (FP) PO SCH (22:15)
[2019-05-31] MEDS: LORazepam 0.5 MG TABLET PO SCH ×3 (05:28→17:59)
[2019-05-31] MEDS: GABAPENTIN 400 MG CAPSULE (FP) PO SCH ×3 (05:29→22:15)
[2019-05-31 09:32] LABS: HEMOGLOBIN 12.6 GM/dL (11.7-16.9); MCH 29.6 pg (25.7-33.7); MCHC 33.2 g/dl (32.0-35.9); MEAN CELL VOLUME 89.3 fl (80-96); MEAN PLT VOLUME 10.7 fl (7.5-11.1); PLATELET COUNT 146 K/MM3 (134-434); RBC 4.26 M/mm3 (4.00-5.60); RDW 13.5 % (11.9-15.9); WHITE BLOOD COUNT 3.4 K/mm3 (4.0-10.0)
[2019-05-31 09:42] LABS: BILIRUBIN,TOTAL 0.3 mg/dL (0.2-1); BLOOD UREA NITROGEN 20.1 mg/dL (7-18); CALCIUM 9.6 mg/dL (8.5-10.1); CREATININE 1.4 mg/dL (0.55-1.3); POTASSIUM 3.8 mmol/L (3.5-5.1); TOT PROT 7.4 g/dl (6.4-8.2)
[2019-05-31] MEDS: EMTRICITAB/RILPIVIRI/TENOF ALA (ODEFSEY) TABLET PO SCH (10:53)
[2019-05-31] MEDS: APIXABAN 5 MG TABLET PO SCH ×2 (10:54→22:15)
[2019-05-31] MEDS: NIFEdipine E.R 60 MG TABLET (UD) PO SCH (10:54)
[2019-05-31] MEDS: ISOSORBIDE MONONITRATE 30 MG TAB.SR.24H (FP) PO SCH (10:54)
[2019-05-31] MEDS: CARVEDILOL 12.5 MG TABLET (FP) PO SCH ×2 (10:54→22:15)
[2019-05-31] MEDS: PRENATAL VITAMINS W/ FOLIC ACID TABLET (FP) PO SCH (10:54)
[2019-05-31] MEDS: amLODIPine BESYLATE 5 MG TABLET (FP) PO SCH (10:54)
[2019-05-31] MEDS: CLOPIDOGREL BISULFATE 75 MG TABLET (FP) PO SCH (10:54)
--- NOTE | 2019-05-31 11:40 | PN ---
S CIWA - CIWA Score Nausea/Vomitin-No Nausea/No Vomiting Muscle Tremors: 1-None Visible, but [place] Anxiety: 2 Agitation: 2 Paroxysmal Sweats: No Perspiration Orientation: 0-Oriented Tacttile Disturbances: 1-Very Mild Itch/Numbness Auditory Disturbances: 0-None Visual Disturbances: 0-None Headache: 2-Mild CIWA-Ar Total Score: 8 BHS Progress Note (SOAP) Subjective: alert,irritable,anxious,interrupted sleep,pain in the body Objective: 05/31/19 11:38 Vital Signs Temperature 97.0 F L 05/31/19 11:08 Pulse Rate 81 05/31/19 11:08 Respiratory Rate 18 05/31/19 11:08 Blood Pressure 126/71 05/31/19 11:08 O2 Sat by Pulse Oximetry (%) 05/31/19 11:39 Laboratory Last Values WBC 3.4 K/mm3 (4.0-10.0) L 05/31/19 08:00 RBC 4.26 M/mm3 (4.00-5.60) 05/31/19 08:00 Hgb 12.6 GM/dL (11.7-16.9) 05/31/19 08:00 Hct 38.0 % (35.4-49) 05/31/19 08:00 MCV 89.3 fl (80-96) 05/31/19 08:00 MCH 29.6 pg (25.7-33.7) 05/31/19 08:00 MCHC 33.2 g/dl (32.0-35.9) 05/31/19 08:00 RDW 13.5 % (11.9-15.9) D 05/31/19 08:00 Plt Count 146 K/MM3 (134-434) 05/31/19 08:00 MPV 10.7 fl (7.5-11.1) 05/31/19 08:00 Sodium 141 mmol/L (136-145) 05/31/19 08:00 Potassium 3.8 mmol/L (3.5-5.1) 05/31/19 08:00 Chloride 109 mmol/L (98-107) H 05/31/19 08:00 Carbon Dioxide 29 mmol/L (21-32) 05/31/19 08:00 Anion Gap 4 MMOL/L (8-16) L 05/31/19 08:00 BUN 20.1 mg/dL (7-18) H 05/31/19 08:00 Creatinine 1.4 mg/dL (0.55-1.3) H 05/31/19 08:00 Est GFR (CKD-EPI)AfAm 60.25 05/31/19 08:00 Est GFR (CKD-EPI)NonAf 51.99 05/31/19 08:00 Random Glucose 91 mg/dL (74-106) 05/31/19 08:00 Calcium 9.6 mg/dL (8.5-10.1) 05/31/19 08:00 Total Bilirubin 0.3 mg/dL (0.2-1) 05/31/19 08:00 AST 35 U/L (15-37) 05/31/19 08:00 ALT 24 U/L (13-61) 05/31/19 08:00 Alkaline Phosphatase 114 U/L (45-117) 05/31/19 08:00 Total Protein 7.4 g/dl (6.4-8.2) 05/31/19 08:00 Albumin 3.0 g/dl (3.4-5.0) L 05/31/19 08:00 Assessment: 05/31/19 11:39 withdrawal symptom Plan: continue detox ativan regimen
--- NOTE | 2019-05-31 11:50 | PN ---
BHS Progress Note Note: encourage oral fluid,repeat bgm in am
[2019-05-31] MEDS: QUEtiapine FUMARATE 100 MG TABLET (FP) PO SCH (22:15)
[2019-05-31] MEDS: THIAMINE HCL 100 MG TABLET (FP) PO SCH (22:15)
[2019-06-01] MEDS ORDERED: LORazepam 0.5 MG TABLET PO PRN
[2019-06-01] MEDS: GABAPENTIN 400 MG CAPSULE (FP) PO SCH ×3 (06:08→22:24)
[2019-06-01] MEDS: NIFEdipine E.R 60 MG TABLET (UD) PO SCH (10:12)
[2019-06-01] MEDS: EMTRICITAB/RILPIVIRI/TENOF ALA (ODEFSEY) TABLET PO SCH (10:12)
[2019-06-01] MEDS: APIXABAN 5 MG TABLET PO SCH ×2 (10:13→22:25)
[2019-06-01] MEDS: ISOSORBIDE MONONITRATE 30 MG TAB.SR.24H (FP) PO SCH (10:13)
[2019-06-01] MEDS: CLOPIDOGREL BISULFATE 75 MG TABLET (FP) PO SCH (10:13)
[2019-06-01] MEDS: PRENATAL VITAMINS W/ FOLIC ACID TABLET (FP) PO SCH (10:13)
[2019-06-01] MEDS: CARVEDILOL 12.5 MG TABLET (FP) PO SCH ×2 (10:13→22:25)
[2019-06-01] MEDS: amLODIPine BESYLATE 5 MG TABLET (FP) PO SCH (10:13)
--- NOTE | 2019-06-01 10:46 | PN ---
BHS CIWA - CIWA Score Nausea/Vomitin-No Nausea/No Vomiting Muscle Tremors: 2 Anxiety: 1-Mildly Anxious Agitation: 1-Slight > Activity Paroxysmal Sweats: 1-Minimal Palms Moist Orientation: 0-Oriented Tacttile Disturbances: 0-None Auditory Disturbances: 0-None Visual Disturbances: 0-None Headache: 0-None Present CIWA-Ar Total Score: 5 BHS Progress Note (SOAP) Subjective: sweats mild shakes Objective: 06/01/19 10:45 Vital Signs Temperature 97.7 F 06/01/19 09:39 Pulse Rate 81 06/01/19 09:39 Respiratory Rate 20 06/01/19 09:39 Blood Pressure 124/61 06/01/19 09:39 O2 Sat by Pulse Oximetry (%) Laboratory Tests 05/31/19 05/31/19 05/31/19 08:00 08:00 08:00 WBC 3.4 L RBC 4.26 Hgb 12.6 Hct 38.0 MCV 89.3 MCH 29.6 MCHC 33.2 RDW 13.5 D Plt Count 146 MPV 10.7 Sodium 141 Potassium 3.8 Chloride 109 H Carbon Dioxide 29 Anion Gap 4 L BUN 20.1 H Creatinine 1.4 H Est GFR (CKD-EPI)AfAm 60.25 Est GFR (CKD-EPI)NonAf 51.99 Random Glucose 91 Calcium 9.6 Total Bilirubin 0.3 AST 35 ALT 24 Alkaline Phosphatase 114 Total Protein 7.4 Albumin 3.0 L RPR Titer Nonreactive labs noted aaox3 ambulating no acute distress Assessment: 06/01/19 10:45 withdrawal sx Plan: continue detox increase fluids d/c in am
--- NOTE | 2019-06-01 13:24 | EKG ---
Test Reason : Blood Pressure : / mmHG Vent. Rate : 084 BPM Atrial Rate : 084 BPM P-R Int : 138 ms QRS Dur : 090 ms QT Int : 388 ms P-R-T Axes : 069 056 246 degrees QTc Int : 458 ms SINUS RHYTHM WITH OCCASIONAL PREMATURE VENTRICULAR COMPLEXES AND PREMATURE ATRIAL COMPLEXES VOLTAGE CRITERIA FOR LEFT VENTRICULAR HYPERTROPHY ABNORMAL ECG WHEN COMPARED WITH ECG OF 15-AUG-2016 15:13, PREMATURE ATRIAL COMPLEXES ARE NOW PRESENT Confirmed by RAVEN SHAFFER MD ([id number]) on 06/01/2019 1:24:30 PM Referred By: CIPRIANO ROSADO Confirmed By:RAVEN SHAFFER MD
[2019-06-01] MEDS: hydrOXYzine PAMOATE 25 MG CAPSULE (FP) PO PRN (15:55)
[2019-06-01] MEDS: THIAMINE HCL 100 MG TABLET (FP) PO SCH (22:24)
[2019-06-01] MEDS: QUEtiapine FUMARATE 100 MG TABLET (FP) PO SCH (22:25)
[2019-06-02] MEDS ORDERED: LORazepam 0.5 MG TABLET PO ONE (05:00)
[2019-06-02] MEDS: GABAPENTIN 400 MG CAPSULE (FP) PO SCH ×2 (06:01→13:05)
[2019-06-02] MEDS ORDERED: amLODIPine BESYLATE 5 MG TABLET (FP) PO SCH (10:00)
[2019-06-02] MEDS: CLOPIDOGREL BISULFATE 75 MG TABLET (FP) PO SCH (10:38)
[2019-06-02] MEDS: ISOSORBIDE MONONITRATE 30 MG TAB.SR.24H (FP) PO SCH (10:38)
[2019-06-02] MEDS: EMTRICITAB/RILPIVIRI/TENOF ALA (ODEFSEY) TABLET PO SCH (10:39)
[2019-06-02] MEDS: NIFEdipine E.R 60 MG TABLET (UD) PO SCH (10:39)
[2019-06-02] MEDS: APIXABAN 5 MG TABLET PO SCH (10:39)
[2019-06-02] MEDS: PRENATAL VITAMINS W/ FOLIC ACID TABLET (FP) PO SCH (10:39)
[2019-06-02] MEDS: CARVEDILOL 12.5 MG TABLET (FP) PO SCH (10:39)
[2019-06-02] MEDS: hydrOXYzine PAMOATE 25 MG CAPSULE (FP) PO PRN (10:41)
--- NOTE | 2019-06-02 14:13 | DS ---
[facility] Detox Discharge Summary Admission Date: 05/29/19 Discharge Date: 06/02/19 - History Present History: Alcohol Dependence, Cocaine Dependence Additional Comments: PATIENT GOING TO [facility] ([place] [facility]) FOR AFTERCARE. PATIENT WAS DISCHARGED FROM DETOX UNIT TO BE TAKEN OVER TO REHAB UNIT IN STABLE MEDICAL CONDITION. Pertinent Past History: History of Seizures, Major Depressive Disorder, CAD, Asthma, HIV, History of Cardiac Stent Placement, History of CVA, Hypercholesterolemia, Hep C, HTN, Leukopenia, Azotemia, History Of End-Stage Renal Disease, Asthma, History of Pulmonary Embolism, S/P Angioplasty. - Physical Exam Results Vital Signs: Vital Signs Temperature 96.6 F L 06/02/19 13:41 Pulse Rate 76 06/02/19 13:41 Respiratory Rate 18 06/02/19 13:41 Blood Pressure 136/89 06/02/19 13:41 O2 Sat by Pulse Oximetry (%) Pertinent Admission Physical Exam Findings: WITHDRAWAL SYMPTOMS. Laboratory Tests 05/31/19 05/31/19 05/31/19 08:00 08:00 08:00 WBC 3.4 L RBC 4.26 Hgb 12.6 Hct 38.0 MCV 89.3 MCH 29.6 MCHC 33.2 RDW 13.5 D Plt Count 146 MPV 10.7 Sodium 141 Potassium 3.8 Chloride 109 H Carbon Dioxide 29 Anion Gap 4 L BUN 20.1 H Creatinine 1.4 H Est GFR (CKD-EPI)AfAm 60.25 Est GFR (CKD-EPI)NonAf 51.99 Random Glucose 91 Calcium 9.6 Total Bilirubin 0.3 AST 35 ALT 24 Alkaline Phosphatase 114 Total Protein 7.4 Albumin 3.0 L RPR Titer Nonreactive LABS NOTED. - Treatment Hospital Course: Detox Protocol Followed, Detoxed Safely, Responded well, Discharged Condition Good, Rehab Referral Accepted Patient has Accepted a Rehab Referral to: [facility] ([place]). - Medication Discharge Medications: Ambulatory Orders Amlodipine Besylate [Norvasc -] 5 mg PO DAILY 08/15/16 Apixaban [Eliquis] 5 mg PO BID 08/15/16 Nifedipine [Nifedical Xl] 60 mg PO DAILY 08/15/16 Atorvastatin Ca [Lipitor] 40 mg PO HS #30 tablet 02/23/17 Carvedilol [Coreg -] 12.5 mg PO BID #60 tablet 09/02/16 Clopidogrel Bisulfate [Clopidogrel] 75 mg PO DAILY #30 tablet 09/02/16 Emtricitab/Rilpivirine/Tenofov [Complera Tablet -] 1 each PO DAILY@0800 #30 tablet 09/02/16 Gabapentin [Neurontin -] 400 mg PO TID #90 capsule 09/02/16 Isosorbide Mononitrate [Imdur -] 30 mg PO DAILY #30 tab.sr.24h 09/02/16 Quetiapine Fumarate [Seroquel] 100 mg PO HS #30 tablet 09/03/16 - Diagnosis (1) Alcohol dependence with uncomplicated withdrawal Current Visit: Yes Status: Acute (2) Depression Current Visit: Yes Status: Acute Qualifiers: Depression Type: unspecified Qualified Code(s): F32.9 - Major depressive disorder, single episode, unspecified (3) Cocaine dependence Current Visit: Yes Status: Chronic Qualifiers: Substance use status: uncomplicated Qualified Code(s): F14.20 - Cocaine dependence, uncomplicated (4) Seizure Current Visit: Yes Status: Acute (5) CAD (coronary artery disease) Current Visit: Yes Status: Chronic Qualifiers: Coronary Disease-Associated Artery/Lesion type: [place] artery [place] vs. transplanted heart: [place] heart Associated angina: without angina Qualified Code(s): I25.10 - Atherosclerotic heart disease of [place] coronary artery without angina pectoris (6) HIV (human immunodeficiency virus infection) Current Visit: Yes Status: Chronic Qualifiers: HIV symptom status: unspecified Qualified Code(s): B20 - Human immunodeficiency virus [HIV] disease (7) Old cerebrovascular accident without late effect Current Visit: Yes Status: Chronic (8) Substance-induced sleep disorder Current Visit: Yes Status: Acute (9) MDD (major depressive disorder) Current Visit: Yes Status: Chronic Qualifiers: Major depression recurrence: unspecified whether recurrent Active/ Remission status: remission status unspecified Qualified Code(s): F32.9 - Major depressive disorder, single episode, unspecified (10) Asthma Current Visit: Yes Status: Chronic Qualifiers: Asthma severity: unspecified severity Asthma persistence: unspecified Asthma complication type: uncomplicated Qualified Code(s): J45.909 - Unspecified asthma, uncomplicated (11) Hepatitis C Current Visit: Yes Status: Resolved Qualifiers: Viral hepatitis chronicity: chronic Hepatic coma status: without hepatic coma Qualified Code(s): B18.2 - Chronic viral hepatitis C (12) History of pulmonary embolism Current Visit: Yes Status: Resolved (13) Status post angioplasty Current Visit: Yes Status: Resolved - AMA Did Patient Leave Against Medical Advice: No
[2019-06-02 17:26] VITALS: BP 127/78; PULSE 126; TEMP 97.6
== END 2019-06-02 18:08 | disposition other institution (70) | DRG 896 ==
LOC: YASAS 15:42 → Y6N 21:35
PROVIDERS: ADMIT Allergy & Immunology; ATTEND Allergy & Immunology
PROC: HZ2ZZZZ Detoxification Services for Substance Abuse Treatment (ICD-10-PCS; principal; 2019-05-29)
DX: F10.230 Alcohol dependence with withdrawal, uncomplicated (principal); N18.6 End stage renal disease; F14.20 Cocaine dependence, uncomplicated; F19.282 Other psychoactive substance dependence with psychoactive substance-induced sleep disorder; I13.11 Hypertensive heart and chronic kidney disease without heart failure, with stage 5 chronic kidney disease, or end stage renal disease; F17.210 Nicotine dependence, cigarettes, uncomplicated; F32.9 Major depressive disorder, single episode, unspecified; Z21 Asymptomatic human immunodeficiency virus [HIV] infection status; I25.10 Atherosclerotic heart disease of native coronary artery without angina pectoris; Z95.5 Presence of coronary angioplasty implant and graft; B18.2 Chronic viral hepatitis C; E78.00 Pure hypercholesterolemia, unspecified; G40.909 Epilepsy, unspecified, not intractable, without status epilepticus; D72.819 Decreased white blood cell count, unspecified; R79.89 Other specified abnormal findings of blood chemistry; J45.909 Unspecified asthma, uncomplicated; Z86.73 Personal history of transient ischemic attack (TIA), and cerebral infarction without residual deficits; Z86.711 Personal history of pulmonary embolism; Z79.01 Long term (current) use of anticoagulants; Z79.02 Long term (current) use of antithrombotics/antiplatelets; Z95.820 Peripheral vascular angioplasty status with implants and grafts; Z99.89 Dependence on other enabling machines and devices; Z96.0 Presence of urogenital implants
CPT/HCPCS: 36415; 80053; 85027; 86593; 93005; 93010

== ENCOUNTER 2019-06-02 18:14 | Inpatient (IN) | payer BC, OTHER ==
--- NOTE | 2019-06-02 14:21 | HP ---
[facility] Rehab Assess/Revision - Admission History Admitted to Rehab from: [facility] Date of Admission to Rehab: 06/02/2019 - Vital signs Vital Signs: NOTED; STABLE. - Findings Detox History & Physical reviewed: Yes Concur with findings: Yes Comments/Additional Findings: PATIENT'S MEDICAL / MEDICATION HISTORY REVIEWED PRIOR TO DISCHARGE FROM DETOX UNIT. PATIENT WAS DISCHARGED FROM DETOX UNIT TO BE TAKEN OVER TO REHAB UNIT IN STABLE MEDICAL CONDITION. Inpatient Rehab Admission - Rehab Decision to Admit Inpatient rehab admission?: Yes - Initial Determination Are CD services needed?: Yes Free of communicable disease: Yes Not in need of hospitalization: Yes - Rehab Admission Criteria Previous failed treatment: Yes Poor recovery environment: Yes Comorbidities: Yes Lacks judgement: No Patient is meeting Inpatient Rehab admission criteria:: Yes
[~2019-06-02 18:14] MED LIST: ACETAMINOPHEN 325 MG TABLET (FP) PO PRN; LOPERAMIDE HCL 2 MG CAPSULE PO PRN; MENTHOL/PHENOL 1 EACH UD MM PRN; NICOTINE POLACRILEX 4 MG GUM BUC PRN; guaiFENesin 200 MG/10 ML 10 ML UNIT-DOSE CUPS PO PRN
[2019-06-02] MEDS: APIXABAN 5 MG TABLET PO SCH (21:40)
[2019-06-02] MEDS: CARVEDILOL 12.5 MG TABLET (FP) PO SCH (21:40)
[2019-06-02] MEDS: THIAMINE HCL 100 MG TABLET (FP) PO SCH (21:40)
[2019-06-02] MEDS: GABAPENTIN 400 MG CAPSULE (FP) PO SCH (21:41)
[2019-06-02] MEDS: MELATONIN 5 MG TABLETS PO PRN (21:41)
[2019-06-03] MEDS: GABAPENTIN 400 MG CAPSULE (FP) PO SCH ×3 (06:15→21:44)
[2019-06-03] MEDS: EMTRICITAB/RILPIVIRI/TENOF ALA (ODEFSEY) TABLET PO SCH (07:52)
[2019-06-03] MEDS: APIXABAN 5 MG TABLET PO SCH ×2 (09:55→21:44)
[2019-06-03] MEDS: PRENATAL VITAMINS W/ FOLIC ACID TABLET (FP) PO SCH (09:55)
[2019-06-03] MEDS: amLODIPine BESYLATE 5 MG TABLET (FP) PO SCH (09:55)
[2019-06-03] MEDS: NIFEdipine E.R 60 MG TABLET (UD) PO SCH (09:55)
[2019-06-03] MEDS: CLOPIDOGREL BISULFATE 75 MG TABLET (FP) PO SCH (09:55)
[2019-06-03] MEDS: ISOSORBIDE MONONITRATE 30 MG TAB.SR.24H (FP) PO SCH (09:55)
[2019-06-03] MEDS: CARVEDILOL 12.5 MG TABLET (FP) PO SCH ×2 (09:55→21:44)
[2019-06-03] MEDS ORDERED: PATIENT'S OWN MEDICATION (NON-FORMULARY) (Nifedipine [Nifedical Xl] 60 MG) PO SCH (10:00)
[2019-06-03] MEDS: THIAMINE HCL 100 MG TABLET (FP) PO SCH (21:44)
[2019-06-03] MEDS: MELATONIN 5 MG TABLETS PO PRN (21:45)
[2019-06-04] MEDS: GABAPENTIN 400 MG CAPSULE (FP) PO SCH ×3 (05:51→21:37)
[2019-06-04] MEDS: EMTRICITAB/RILPIVIRI/TENOF ALA (ODEFSEY) TABLET PO SCH (07:50)
[2019-06-04] MEDS: NIFEdipine E.R 60 MG TABLET (UD) PO SCH (09:41)
[2019-06-04] MEDS: PRENATAL VITAMINS W/ FOLIC ACID TABLET (FP) PO SCH (09:41)
[2019-06-04] MEDS: CLOPIDOGREL BISULFATE 75 MG TABLET (FP) PO SCH (09:41)
[2019-06-04] MEDS: amLODIPine BESYLATE 5 MG TABLET (FP) PO SCH (09:41)
[2019-06-04] MEDS: ISOSORBIDE MONONITRATE 30 MG TAB.SR.24H (FP) PO SCH (09:41)
[2019-06-04] MEDS: CARVEDILOL 12.5 MG TABLET (FP) PO SCH ×2 (09:42→21:37)
[2019-06-04] MEDS: APIXABAN 5 MG TABLET PO SCH ×2 (09:42→21:37)
--- NOTE | 2019-06-04 11:46 | PN ---
[facility] Progress Note Note: Patient evaluated for c/o knee/joint pain which he reports he has had x years. Previously treated with Oxycodone in past, most recent Tramadol. Currently in rehab for alcohol/brock dependence after completing detox. Upon admission, urine tox + brock, negative for opiates/oxy/mop. Patient states being referred to Methadone program in past but was not candidate for treatment due to cardiac history of CAD, stent, PAD seizure and HIV +. ROS: + knee/join pain, non-radiating, dull ache. Denies chest pain,sweating, sob and dizziness. Vital Signs Temperature 97.5 F L 06/04/19 07:17 Pulse Rate 66 06/04/19 09:30 Respiratory Rate 18 06/04/19 09:30 Blood Pressure 116/76 06/04/19 09:30 O2 Sat by Pulse Oximetry (%) PE: alert and oriented x 3 skin warm and dry EOMs intact bl car s1s2 resp cta bl ext amb with cane, +surgical scars BLE, trace pedal edema b/l A/P: Chronic joint pain ETOH dependence Will start Ralph-arce TP/flexeril prn continue rehab treatment monitor clinically Others' Prescriptions Patient Name: Renaldo Hanson Date: 1955 Address: [address] [place] [address] Sex: Male Rx Written Rx Dispensed Drug Quantity Days Supply Prescriber Name 04/27/2019 04/27/2019 tramadol hcl 50 mg tablet 14 7 Annie Ocasio MD 03/19/2019 03/19/2019 tramadol hcl 50 mg tablet 14 7 Jarrod Silva) 11/10/2018 12/20/2018 tramadol hcl 50 mg tablet 21 7 Jarrod Silva) 10/05/2018 10/06/2018 tramadol hcl 50 mg tablet 21 7 Tomas Napoles) 09/05/2018 09/05/2018 tramadol hcl 50 mg tablet 25 7 Jarrod Silva) 08/25/2018 08/25/2018 tramadol hcl 50 mg tablet 30 8 Jarrod Silva) Patient Name: Renaldo Hanson Date: 1955 Address: [address] [place] [address] Sex: Male Rx Written Rx Dispensed Drug Quantity Days Supply Prescriber Name 08/17/2018 08/18/2018 oxycodone-acetaminophen 5-325 mg tab 7 2 Fela Linda 07/28/2018 07/28/2018 oxycodone-acetaminophen 5-325 mg tab 11 2 Jarrod Silva) 07/13/2018 07/25/2018 oxycodone-acetaminophen 5-325 mg tab 20 5 Rachel Garza (PA-C) 07/07/2018 07/13/2018 oxycodone-acetaminophen 5-325 mg tab 15 4 Chao Wong)
[2019-06-04] MEDS: METHYL SALICYLATE/MENTHOL OINT 30 GM TUBE TP SCH ×2 (12:36→21:37)
[2019-06-04] MEDS: CYCLOBENZAPRINE HCL 5 MG TABLET PO SCH ×2 (12:36→21:37)
[2019-06-04] MEDS: THIAMINE HCL 100 MG TABLET (FP) PO SCH (21:37)
[2019-06-04] MEDS: MELATONIN 5 MG TABLETS PO PRN (21:37)
[2019-06-04] MEDS ORDERED: PT OWN MED DRAWER 7, Y5N ONE (21:44)
[2019-06-05] MEDS: GABAPENTIN 400 MG CAPSULE (FP) PO SCH ×3 (05:50→21:50)
[2019-06-05] MEDS: EMTRICITAB/RILPIVIRI/TENOF ALA (ODEFSEY) TABLET PO SCH (07:25)
[2019-06-05] MEDS: amLODIPine BESYLATE 5 MG TABLET (FP) PO SCH (10:47)
[2019-06-05] MEDS: METHYL SALICYLATE/MENTHOL OINT 30 GM TUBE TP SCH ×2 (10:47→21:50)
[2019-06-05] MEDS: CLOPIDOGREL BISULFATE 75 MG TABLET (FP) PO SCH (10:47)
[2019-06-05] MEDS: ISOSORBIDE MONONITRATE 30 MG TAB.SR.24H (FP) PO SCH (10:47)
[2019-06-05] MEDS: CARVEDILOL 12.5 MG TABLET (FP) PO SCH ×2 (10:47→21:50)
[2019-06-05] MEDS: NIFEdipine E.R 60 MG TABLET (UD) PO SCH (10:47)
[2019-06-05] MEDS: CYCLOBENZAPRINE HCL 5 MG TABLET PO SCH ×2 (10:47→21:50)
[2019-06-05] MEDS: APIXABAN 5 MG TABLET PO SCH ×2 (10:48→21:50)
[2019-06-05] MEDS: PRENATAL VITAMINS W/ FOLIC ACID TABLET (FP) PO SCH (10:48)
[2019-06-05] MEDS: MELATONIN 5 MG TABLETS PO PRN (21:49)
[2019-06-05] MEDS: THIAMINE HCL 100 MG TABLET (FP) PO SCH (21:49)
[2019-06-06] MEDS: GABAPENTIN 400 MG CAPSULE (FP) PO SCH ×3 (06:01→21:25)
[2019-06-06] MEDS: EMTRICITAB/RILPIVIRI/TENOF ALA (ODEFSEY) TABLET PO SCH (07:00)
[2019-06-06] MEDS: CYCLOBENZAPRINE HCL 5 MG TABLET PO SCH ×2 (10:37→21:25)
[2019-06-06] MEDS: APIXABAN 5 MG TABLET PO SCH ×2 (10:37→21:25)
[2019-06-06] MEDS: amLODIPine BESYLATE 5 MG TABLET (FP) PO SCH (10:37)
[2019-06-06] MEDS: CLOPIDOGREL BISULFATE 75 MG TABLET (FP) PO SCH (10:37)
[2019-06-06] MEDS: NIFEdipine E.R 60 MG TABLET (UD) PO SCH (10:37)
[2019-06-06] MEDS: ISOSORBIDE MONONITRATE 30 MG TAB.SR.24H (FP) PO SCH (10:37)
[2019-06-06] MEDS: PRENATAL VITAMINS W/ FOLIC ACID TABLET (FP) PO SCH (10:37)
[2019-06-06] MEDS: CARVEDILOL 12.5 MG TABLET (FP) PO SCH ×2 (10:38→21:25)
[2019-06-06] MEDS: METHYL SALICYLATE/MENTHOL OINT 30 GM TUBE TP SCH ×2 (10:40→21:26)
[2019-06-06] MEDS: THIAMINE HCL 100 MG TABLET (FP) PO SCH (21:25)
[2019-06-06] MEDS: MELATONIN 5 MG TABLETS PO PRN (21:25)
[2019-06-07] MEDS: GABAPENTIN 400 MG CAPSULE (FP) PO SCH ×3 (06:32→21:32)
[2019-06-07] MEDS: EMTRICITAB/RILPIVIRI/TENOF ALA (ODEFSEY) TABLET PO SCH (07:20)
--- NOTE | 2019-06-07 08:17 | CONSULT ---
[facility] Psychiatric Consult - Data Date of interview: 06/07/19 Admission source: 6N Identifying data: Mr Valentin Barker is a 64 years old single Black male, father of 4 children, unemployed receiving SSI, live in a studio apt seeking detox treatment for alcohol and cocaine Substance Abuse History: Reports history of alcohol and cocaine use. Refer to addiction counselor's summary for further information Medical History: Significant bronchial asthma/COPD, hypertension, dyslipidemia, coronary heart disease (post-angioplasty), HIV positive, history of CVA in 1989, alcohol-related seizure, hepatitis C, DVT in left leg, pulmonary embolism , cancer of right kidney, treatment for gonorrhea and left femoro-popliteal bypass. Smokes cigarettes 1 ppd Psychiatric History: Patient was recently seen by telegraphic typewriter operator on 05/30/19 while admitted to detox. Historical narrative remains consistent. He reports that he was diagnosed with MDD years ago and has been receiving outpatient psychiatric treatment at [facility] for approximately 15 years. Reports that he is currently prescribed Seroquel 100 mg/hs. When seen by telegraphic typewriter operator on 05/30/19, he was continued on Seroquel 100 mg/hs. Denies previous psychiatric hospitalization or suicidal attempt. At present, denies experencing depressive symptoms, S/H ideations. However, reports sleeping poorly. Physical/Sexual Abuse/Trauma History: Reports serving in the [employer] from 1972 to 1976. Discharge was dishonorable Additional Comment: Reports history of multiple previous arrests including multiple felony convictions for drug related offenses Mental Status Exam - Mental Status Exam Alert and Oriented to: Time, Place, Person Cognitive Function: Fair Patient Appearance: Well Groomed Mood: Hopeful, Euthymic Patient Behavior: Cooperative Speech Pattern: Clear Voice Loudness: Normal Thought Process: Intact, Goal Oriented Hallucinations: Denies Suicidal Ideation: Denies Homicidal Ideation: Denies Insight/Judgement: Fair Sleep: Poorly Appetite: Good Muscle strength/Tone: Normal Gait/Station: Spastic Psychiatric Findings - Problem List ([place] 1, 2,3) (1) MDD (major depressive disorder) Current Visit: No Status: Chronic Qualifiers: Major depression recurrence: unspecified whether recurrent Active/ Remission status: remission status unspecified Qualified Code(s): F32.9 - Major depressive disorder, single episode, unspecified (2) Substance-induced sleep disorder Current Visit: No Status: Acute (3) Alcohol dependence Current Visit: No Status: Acute (4) Cocaine dependence Current Visit: No Status: Acute Qualifiers: Substance use status: uncomplicated Qualified Code(s): F14.20 - Cocaine dependence, uncomplicated (5) Nicotine dependence Current Visit: No Status: Chronic Qualifiers: Nicotine product type: cigarettes Substance use status: uncomplicated Qualified Code(s): F17.210 - Nicotine dependence, cigarettes, uncomplicated (6) Asthma Current Visit: No Status: Chronic Qualifiers: Asthma severity: unspecified severity Asthma persistence: unspecified Asthma complication type: uncomplicated Qualified Code(s): J45.909 - Unspecified asthma, uncomplicated (7) COPD (chronic obstructive pulmonary disease) Current Visit: No Status: Chronic (8) Hepatitis C Current Visit: No Status: Resolved Qualifiers: Viral hepatitis chronicity: chronic Hepatic coma status: without hepatic coma Qualified Code(s): B18.2 - Chronic viral hepatitis C (9) HTN (hypertension) Current Visit: Yes Status: Chronic (10) HLD (hyperlipidemia) Current Visit: Yes Status: Chronic (11) CAD (coronary artery disease) Current Visit: Yes Status: Acute (12) CAD (coronary artery disease) Current Visit: No Status: Chronic Qualifiers: Coronary Disease-Associated Artery/Lesion type: [place] artery [place] vs. transplanted heart: [place] heart Associated angina: without angina Qualified Code(s): I25.10 - Atherosclerotic heart disease of [place] coronary artery without angina pectoris (13) HIV (human immunodeficiency virus infection) Current Visit: No Status: Chronic Qualifiers: HIV symptom status: unspecified Qualified Code(s): B20 - Human immunodeficiency virus [HIV] disease (14) Old cerebrovascular accident without late effect Current Visit: No Status: Chronic (15) History of pulmonary embolism Current Visit: No Status: Resolved (16) Status post angioplasty Current Visit: No Status: Resolved (17) DVT (deep venous thrombosis) Current Visit: Yes Status: Resolved - Initial Treatment Plan Initial Treatment Plan: 1) Continue Seroquel 100 mg po HS. 2) Continue inpatient rehabilitation
[2019-06-07] MEDS ORDERED: PT OWN MED DRAWER 7, Y5N ONE (09:06)
[2019-06-07] MEDS: CYCLOBENZAPRINE HCL 5 MG TABLET PO SCH ×2 (10:18→21:32)
[2019-06-07] MEDS: CARVEDILOL 12.5 MG TABLET (FP) PO SCH ×2 (10:18→21:32)
[2019-06-07] MEDS: APIXABAN 5 MG TABLET PO SCH ×2 (10:18→21:31)
[2019-06-07] MEDS: NIFEdipine E.R 60 MG TABLET (UD) PO SCH (10:18)
[2019-06-07] MEDS: ISOSORBIDE MONONITRATE 30 MG TAB.SR.24H (FP) PO SCH (10:18)
[2019-06-07] MEDS: CLOPIDOGREL BISULFATE 75 MG TABLET (FP) PO SCH (10:18)
[2019-06-07] MEDS: PRENATAL VITAMINS W/ FOLIC ACID TABLET (FP) PO SCH (10:18)
[2019-06-07] MEDS: METHYL SALICYLATE/MENTHOL OINT 30 GM TUBE TP SCH ×2 (10:18→21:33)
[2019-06-07] MEDS: amLODIPine BESYLATE 5 MG TABLET (FP) PO SCH (10:18)
[2019-06-07] MEDS: MELATONIN 5 MG TABLETS PO PRN (21:32)
[2019-06-07] MEDS: THIAMINE HCL 100 MG TABLET (FP) PO SCH (21:32)
[2019-06-07] MEDS: QUEtiapine FUMARATE 100 MG TABLET (FP) PO SCH (21:32)
[2019-06-08] MEDS: GABAPENTIN 400 MG CAPSULE (FP) PO SCH ×3 (06:11→22:38)
[2019-06-08] MEDS: EMTRICITAB/RILPIVIRI/TENOF ALA (ODEFSEY) TABLET PO SCH (07:40)
[2019-06-08] MEDS: CLOPIDOGREL BISULFATE 75 MG TABLET (FP) PO SCH (09:54)
[2019-06-08] MEDS: METHYL SALICYLATE/MENTHOL OINT 30 GM TUBE TP SCH ×2 (09:54→22:39)
[2019-06-08] MEDS: ISOSORBIDE MONONITRATE 30 MG TAB.SR.24H (FP) PO SCH (09:54)
[2019-06-08] MEDS: CARVEDILOL 12.5 MG TABLET (FP) PO SCH ×2 (09:54→22:38)
[2019-06-08] MEDS: amLODIPine BESYLATE 5 MG TABLET (FP) PO SCH (09:54)
[2019-06-08] MEDS: PRENATAL VITAMINS W/ FOLIC ACID TABLET (FP) PO SCH (09:54)
[2019-06-08] MEDS: APIXABAN 5 MG TABLET PO SCH ×2 (09:54→22:40)
[2019-06-08] MEDS: NIFEdipine E.R 60 MG TABLET (UD) PO SCH (09:54)
[2019-06-08] MEDS: CYCLOBENZAPRINE HCL 5 MG TABLET PO SCH ×2 (09:54→22:38)
[2019-06-08] MEDS: QUEtiapine FUMARATE 100 MG TABLET (FP) PO SCH (22:38)
[2019-06-08] MEDS: THIAMINE HCL 100 MG TABLET (FP) PO SCH (22:38)
[2019-06-09] MEDS: EMTRICITAB/RILPIVIRI/TENOF ALA (ODEFSEY) TABLET PO SCH (07:08)
[2019-06-09] MEDS: GABAPENTIN 400 MG CAPSULE (FP) PO SCH ×3 (07:08→21:24)
[2019-06-09] MEDS ORDERED: PT OWN MED DRAWER 7, Y5N ONE ×2 (08:39→19:19)
[2019-06-09] MEDS: ISOSORBIDE MONONITRATE 30 MG TAB.SR.24H (FP) PO SCH (09:43)
[2019-06-09] MEDS: NIFEdipine E.R 60 MG TABLET (UD) PO SCH (09:43)
[2019-06-09] MEDS: PRENATAL VITAMINS W/ FOLIC ACID TABLET (FP) PO SCH (09:43)
[2019-06-09] MEDS: amLODIPine BESYLATE 5 MG TABLET (FP) PO SCH (09:43)
[2019-06-09] MEDS: CYCLOBENZAPRINE HCL 5 MG TABLET PO SCH ×2 (09:43→21:24)
[2019-06-09] MEDS: APIXABAN 5 MG TABLET PO SCH ×2 (09:43→21:24)
[2019-06-09] MEDS: CLOPIDOGREL BISULFATE 75 MG TABLET (FP) PO SCH (09:43)
[2019-06-09] MEDS: CARVEDILOL 12.5 MG TABLET (FP) PO SCH ×2 (09:43→21:24)
[2019-06-09] MEDS: METHYL SALICYLATE/MENTHOL OINT 30 GM TUBE TP SCH ×2 (09:44→21:25)
[2019-06-09] MEDS: THIAMINE HCL 100 MG TABLET (FP) PO SCH (21:24)
[2019-06-09] MEDS: QUEtiapine FUMARATE 100 MG TABLET (FP) PO SCH (21:24)
[2019-06-09] MEDS: MELATONIN 5 MG TABLETS PO PRN (21:24)
[2019-06-10] MEDS: GABAPENTIN 400 MG CAPSULE (FP) PO SCH ×3 (07:23→21:15)
[2019-06-10] MEDS: EMTRICITAB/RILPIVIRI/TENOF ALA (ODEFSEY) TABLET PO SCH (07:23)
[2019-06-10] MEDS ORDERED: PT OWN MED DRAWER 7, Y5N ONE ×2 (08:37→18:44)
[2019-06-10] MEDS: PRENATAL VITAMINS W/ FOLIC ACID TABLET (FP) PO SCH (09:08)
[2019-06-10] MEDS: CYCLOBENZAPRINE HCL 5 MG TABLET PO SCH ×2 (09:08→21:15)
[2019-06-10] MEDS: amLODIPine BESYLATE 5 MG TABLET (FP) PO SCH (09:08)
[2019-06-10] MEDS: CARVEDILOL 12.5 MG TABLET (FP) PO SCH ×2 (09:08→21:15)
[2019-06-10] MEDS: METHYL SALICYLATE/MENTHOL OINT 30 GM TUBE TP SCH ×2 (09:08→21:15)
[2019-06-10] MEDS: ISOSORBIDE MONONITRATE 30 MG TAB.SR.24H (FP) PO SCH (09:08)
[2019-06-10] MEDS: NIFEdipine E.R 60 MG TABLET (UD) PO SCH (09:08)
[2019-06-10] MEDS: APIXABAN 5 MG TABLET PO SCH ×2 (09:08→21:15)
[2019-06-10] MEDS: CLOPIDOGREL BISULFATE 75 MG TABLET (FP) PO SCH (09:08)
[2019-06-10] MEDS: THIAMINE HCL 100 MG TABLET (FP) PO SCH (21:15)
[2019-06-10] MEDS: QUEtiapine FUMARATE 100 MG TABLET (FP) PO SCH (21:15)
[2019-06-10] MEDS: MELATONIN 5 MG TABLETS PO PRN (21:15)
[2019-06-11] MEDS: GABAPENTIN 400 MG CAPSULE (FP) PO SCH ×3 (06:17→21:41)
[2019-06-11] MEDS: EMTRICITAB/RILPIVIRI/TENOF ALA (ODEFSEY) TABLET PO SCH (07:09)
[2019-06-11] MEDS: METHYL SALICYLATE/MENTHOL OINT 30 GM TUBE TP SCH ×2 (10:55→21:42)
[2019-06-11] MEDS: amLODIPine BESYLATE 5 MG TABLET (FP) PO SCH (10:58)
[2019-06-11] MEDS: NIFEdipine E.R 60 MG TABLET (UD) PO SCH (10:58)
[2019-06-11] MEDS: CLOPIDOGREL BISULFATE 75 MG TABLET (FP) PO SCH (10:58)
[2019-06-11] MEDS: ISOSORBIDE MONONITRATE 30 MG TAB.SR.24H (FP) PO SCH (10:58)
[2019-06-11] MEDS: CARVEDILOL 12.5 MG TABLET (FP) PO SCH ×2 (10:58→21:41)
[2019-06-11] MEDS: CYCLOBENZAPRINE HCL 5 MG TABLET PO SCH ×2 (10:58→21:41)
[2019-06-11] MEDS: PRENATAL VITAMINS W/ FOLIC ACID TABLET (FP) PO SCH (10:58)
[2019-06-11] MEDS: APIXABAN 5 MG TABLET PO SCH ×2 (11:00→21:41)
[2019-06-11] MEDS ORDERED: PT OWN MED DRAWER 7, Y5N ONE ×2 (11:01→18:57)
[2019-06-11] MEDS: MELATONIN 5 MG TABLETS PO PRN (21:41)
[2019-06-11] MEDS: THIAMINE HCL 100 MG TABLET (FP) PO SCH (21:41)
[2019-06-11] MEDS: QUEtiapine FUMARATE 100 MG TABLET (FP) PO SCH (21:41)
[2019-06-12] MEDS: GABAPENTIN 400 MG CAPSULE (FP) PO SCH ×3 (06:19→21:36)
[2019-06-12] MEDS: EMTRICITAB/RILPIVIRI/TENOF ALA (ODEFSEY) TABLET PO SCH (07:29)
[2019-06-12] MEDS ORDERED: PT OWN MED DRAWER 7, Y5N ONE (08:59)
[2019-06-12] MEDS: ISOSORBIDE MONONITRATE 30 MG TAB.SR.24H (FP) PO SCH (09:26)
[2019-06-12] MEDS: CLOPIDOGREL BISULFATE 75 MG TABLET (FP) PO SCH (09:26)
[2019-06-12] MEDS: amLODIPine BESYLATE 5 MG TABLET (FP) PO SCH (09:26)
[2019-06-12] MEDS: PRENATAL VITAMINS W/ FOLIC ACID TABLET (FP) PO SCH (09:26)
[2019-06-12] MEDS: CYCLOBENZAPRINE HCL 5 MG TABLET PO SCH ×2 (09:27→21:36)
[2019-06-12] MEDS: APIXABAN 5 MG TABLET PO SCH ×2 (09:27→21:42)
[2019-06-12] MEDS: NIFEdipine E.R 60 MG TABLET (UD) PO SCH (09:27)
[2019-06-12] MEDS: CARVEDILOL 12.5 MG TABLET (FP) PO SCH ×2 (09:27→21:36)
[2019-06-12] MEDS: METHYL SALICYLATE/MENTHOL OINT 30 GM TUBE TP SCH ×2 (09:28→21:39)
--- NOTE | 2019-06-12 10:00 | PN ---
[facility] Progress Note Note: Pt would like to go to [facility] out pt program at discharge- pt wondering about steps re this. Pt asked to see counselor for this discharge plan- pt agreed
[2019-06-12] MEDS: QUEtiapine FUMARATE 100 MG TABLET (FP) PO SCH (21:36)
[2019-06-12] MEDS: THIAMINE HCL 100 MG TABLET (FP) PO SCH (21:38)
[2019-06-12] MEDS: MELATONIN 5 MG TABLETS PO PRN (21:38)
[2019-06-13] MEDS: GABAPENTIN 400 MG CAPSULE (FP) PO SCH ×3 (06:09→21:19)
[2019-06-13] MEDS: EMTRICITAB/RILPIVIRI/TENOF ALA (ODEFSEY) TABLET PO SCH (07:17)
[2019-06-13] MEDS ORDERED: PT OWN MED DRAWER 7, Y5N ONE (08:45)
[2019-06-13] MEDS: NIFEdipine E.R 60 MG TABLET (UD) PO SCH (10:14)
[2019-06-13] MEDS: amLODIPine BESYLATE 5 MG TABLET (FP) PO SCH (10:14)
[2019-06-13] MEDS: CYCLOBENZAPRINE HCL 5 MG TABLET PO SCH ×2 (10:14→21:20)
[2019-06-13] MEDS: CARVEDILOL 12.5 MG TABLET (FP) PO SCH ×2 (10:14→21:19)
[2019-06-13] MEDS: PRENATAL VITAMINS W/ FOLIC ACID TABLET (FP) PO SCH (10:14)
[2019-06-13] MEDS: CLOPIDOGREL BISULFATE 75 MG TABLET (FP) PO SCH (10:14)
[2019-06-13] MEDS: ISOSORBIDE MONONITRATE 30 MG TAB.SR.24H (FP) PO SCH (10:14)
[2019-06-13] MEDS: APIXABAN 5 MG TABLET PO SCH ×2 (10:14→21:19)
[2019-06-13] MEDS: METHYL SALICYLATE/MENTHOL OINT 30 GM TUBE TP SCH ×2 (10:16→21:19)
--- NOTE | 2019-06-13 10:50 | PN ---
[facility] Progress Note (SOAP) Subjective: thinks he might have infection or blockage of urine . At present w/o fever, pain , urine present in bag. Objective: 06/13/19 10:46 Vital Signs Temperature 97.7 F 06/13/19 07:08 Pulse Rate 73 06/13/19 09:30 Respiratory Rate 18 06/13/19 09:30 Blood Pressure 133/90 06/13/19 09:30 O2 Sat by Pulse Oximetry (%) pt aox3 in nad ambulating, with peterson in place , urine in bag , clear and yellow. abd soft nontender Assessment: 06/13/19 10:48 peterson required for ? kidney ca etiology - pt has been following up with at [facility]. states he is scheduled for scraping r/o uti hiv+ 06/13/19 10:53 Plan: cont in rehab u/a, c/s
[2019-06-13 18:35] LABS: URINE APPEARANCE CLEAR; URINE COLOR YELLOW; URINE GLUCOSE (UA) 1+ (NEGATIVE)
[2019-06-13 18:36] LABS: URINE BILIRUBIN NEGATIVE (NEGATIVE); URINE KETONE NEGATIVE (NEGATIVE)
[2019-06-13 18:37] LABS: EPI CELLS 11 /HPF (0-5/HPF); URINE LEUK ESTERASE 3+ (NEGATIVE); URINE NITRITE POSITIVE (NEGATIVE); URINE PROTEIN 2+ (NEGATIVE); URINE RBC 15 /hpf (0-4); URINE WBC 5 /hpf (0-5)
[2019-06-13 18:38] LABS: HYALINE CASTS 819 /lpf (0-8); URINE BACTERIA 744 /hpf (NEGATIVE)
[2019-06-13] MEDS: MELATONIN 5 MG TABLETS PO PRN (21:19)
[2019-06-13] MEDS: QUEtiapine FUMARATE 100 MG TABLET (FP) PO SCH (21:19)
[2019-06-13] MEDS: THIAMINE HCL 100 MG TABLET (FP) PO SCH (21:19)
[2019-06-14] MEDS: GABAPENTIN 400 MG CAPSULE (FP) PO SCH ×3 (06:30→21:21)
[2019-06-14] MEDS: EMTRICITAB/RILPIVIRI/TENOF ALA (ODEFSEY) TABLET PO SCH (07:36)
[2019-06-14] MEDS ORDERED: PT OWN MED DRAWER 7, Y5N ONE (08:59)
--- NOTE | 2019-06-14 10:13 | PN ---
S Progress Note Note: Pt here to check on U Cx results. Not available yet Also c/o of R toe pain. Pt states he tried NSAID- no help. Pt states he has h/o gout- d/w pt checking Uric acid levels- pt states he will be going home soon and will f/u PCP. PE Vital Signs - 24 hr 06/14/19 06/14/19 06/14/19 00:30 03:30 07:03 Temperature 97.9 F Pulse Rate 80 Respiratory 18 18 18 Rate Blood Pressure 118/77 06/14/19 09:30 Temperature Pulse Rate 84 Respiratory 18 Rate Blood Pressure 120/80 R toe with minimal swelling and redness of toe, no radiation of redness. a/p: Probable gout- pt did not want further eval with uric acid levels, pt with increased Cr. pt given printed info on Gout, methadone and Suboxone- h/o OUD Will need to f/u UCx results
[2019-06-14] MEDS: CARVEDILOL 12.5 MG TABLET (FP) PO SCH ×2 (10:26→21:21)
[2019-06-14] MEDS: METHYL SALICYLATE/MENTHOL OINT 30 GM TUBE TP SCH ×2 (10:26→21:21)
[2019-06-14] MEDS: ISOSORBIDE MONONITRATE 30 MG TAB.SR.24H (FP) PO SCH (10:27)
[2019-06-14] MEDS: CYCLOBENZAPRINE HCL 5 MG TABLET PO SCH ×2 (10:27→21:22)
[2019-06-14] MEDS: amLODIPine BESYLATE 5 MG TABLET (FP) PO SCH (10:27)
[2019-06-14] MEDS: NIFEdipine E.R 60 MG TABLET (UD) PO SCH (10:27)
[2019-06-14] MEDS: CLOPIDOGREL BISULFATE 75 MG TABLET (FP) PO SCH (10:27)
[2019-06-14] MEDS: PRENATAL VITAMINS W/ FOLIC ACID TABLET (FP) PO SCH (10:27)
[2019-06-14] MEDS: APIXABAN 5 MG TABLET PO SCH ×2 (10:27→21:21)
[2019-06-14] MEDS: MELATONIN 5 MG TABLETS PO PRN (21:21)
[2019-06-14] MEDS: QUEtiapine FUMARATE 100 MG TABLET (FP) PO SCH (21:21)
[2019-06-14] MEDS: THIAMINE HCL 100 MG TABLET (FP) PO SCH (21:21)
[2019-06-15] MEDS: GABAPENTIN 400 MG CAPSULE (FP) PO SCH ×3 (05:55→21:25)
[2019-06-15] MEDS: EMTRICITAB/RILPIVIRI/TENOF ALA (ODEFSEY) TABLET PO SCH (07:01)
[2019-06-15] MEDS ORDERED: PT OWN MED DRAWER 7, Y5N ONE (08:33)
[2019-06-15] MEDS: NIFEdipine E.R 60 MG TABLET (UD) PO SCH (10:13)
[2019-06-15] MEDS: CLOPIDOGREL BISULFATE 75 MG TABLET (FP) PO SCH (10:13)
[2019-06-15] MEDS: APIXABAN 5 MG TABLET PO SCH ×2 (10:13→21:58)
[2019-06-15] MEDS: PRENATAL VITAMINS W/ FOLIC ACID TABLET (FP) PO SCH (10:13)
[2019-06-15] MEDS: amLODIPine BESYLATE 5 MG TABLET (FP) PO SCH (10:13)
[2019-06-15] MEDS: CYCLOBENZAPRINE HCL 5 MG TABLET PO SCH ×2 (10:13→21:25)
[2019-06-15] MEDS: ISOSORBIDE MONONITRATE 30 MG TAB.SR.24H (FP) PO SCH (10:13)
[2019-06-15] MEDS: CARVEDILOL 12.5 MG TABLET (FP) PO SCH ×2 (10:13→21:25)
[2019-06-15] MEDS: METHYL SALICYLATE/MENTHOL OINT 30 GM TUBE TP SCH ×2 (10:14→21:25)
--- NOTE | 2019-06-15 12:13 | PN ---
[facility] Progress Note Note: Patient presents follow up labs. Has peterson catheter in place and UA and culture ordered to assess for UTI. Patient denies fever, pelvic discomfort but states his urine has been cloudy. Vital Signs Temperature 97.6 F 06/15/19 06:33 Pulse Rate 76 06/15/19 09:30 Respiratory Rate 18 06/15/19 09:30 Blood Pressure 119/73 06/15/19 09:30 O2 Sat by Pulse Oximetry (%) Laboratory Tests 06/13/19 11:00 Urine Color Yellow Urine Appearance Clear Urine pH 9.0 H D Ur Specific [place] 1.016 Urine Protein 2+ H Urine Glucose (UA) 1+ H Urine Ketones Negative Urine Blood 3+ H Urine Nitrite Positive H Urine Bilirubin Negative Urine Urobilinogen 1.0 Ur Leukocyte Esterase 3+ H Urine WBC (Auto) 5 Urine RBC (Auto) 15 Urine Casts (Auto) 819 U Epithel Cells (Auto) 11 Urine Bacteria (Auto) 744 PE: alert and oriented x 3 skin warm and dry gi nt, nd gu peterson cath to leg bag a/p: UA +nitrated, blood, leuk culture contaminated Will repeat urine c/s order Levaquin 250mg daily x 7 days prophylactically encourage fluids follow up results when available
[2019-06-15] MEDS: THIAMINE HCL 100 MG TABLET (FP) PO SCH (21:25)
[2019-06-15] MEDS: QUEtiapine FUMARATE 100 MG TABLET (FP) PO SCH (21:25)
[2019-06-15 23:58] LABS: EPI CELLS 5.3 /HPF (0-5/HPF); HYALINE CASTS 180 /lpf (0-8); PH,URINE >= 9.0 (5.0-8.0); URINE APPEARANCE TURBID; URINE BACTERIA 512.9 /hpf (NEGATIVE); URINE BILIRUBIN NEGATIVE (NEGATIVE); URINE COLOR DK YELLOW; URINE GLUCOSE (UA) 1+ (NEGATIVE); URINE KETONE NEGATIVE (NEGATIVE); URINE LEUK ESTERASE 3+ (NEGATIVE); URINE NITRITE NEGATIVE (NEGATIVE); URINE PROTEIN 3+ (NEGATIVE); URINE RBC 11 /hpf (0-4); URINE WBC 3 /hpf (0-5)
[2019-06-16] MEDS: GABAPENTIN 400 MG CAPSULE (FP) PO SCH ×3 (06:15→21:37)
[2019-06-16] MEDS: EMTRICITAB/RILPIVIRI/TENOF ALA (ODEFSEY) TABLET PO SCH (07:07)
[2019-06-16] MEDS: NIFEdipine E.R 60 MG TABLET (UD) PO SCH (10:03)
[2019-06-16] MEDS: CYCLOBENZAPRINE HCL 5 MG TABLET PO SCH ×2 (10:03→21:38)
[2019-06-16] MEDS: amLODIPine BESYLATE 5 MG TABLET (FP) PO SCH (10:03)
[2019-06-16] MEDS: PRENATAL VITAMINS W/ FOLIC ACID TABLET (FP) PO SCH (10:03)
[2019-06-16] MEDS: ISOSORBIDE MONONITRATE 30 MG TAB.SR.24H (FP) PO SCH (10:03)
[2019-06-16] MEDS: CLOPIDOGREL BISULFATE 75 MG TABLET (FP) PO SCH (10:03)
[2019-06-16] MEDS: CARVEDILOL 12.5 MG TABLET (FP) PO SCH ×2 (10:03→21:37)
[2019-06-16] MEDS: APIXABAN 5 MG TABLET PO SCH ×2 (10:03→21:37)
[2019-06-16] MEDS: METHYL SALICYLATE/MENTHOL OINT 30 GM TUBE TP SCH ×2 (10:04→21:36)
[2019-06-16] MEDS: QUEtiapine FUMARATE 100 MG TABLET (FP) PO SCH (21:37)
[2019-06-16] MEDS: THIAMINE HCL 100 MG TABLET (FP) PO SCH (21:38)
[2019-06-17] MEDS: GABAPENTIN 400 MG CAPSULE (FP) PO SCH ×3 (05:50→21:44)
[2019-06-17] MEDS: EMTRICITAB/RILPIVIRI/TENOF ALA (ODEFSEY) TABLET PO SCH (07:14)
[2019-06-17] MEDS: PRENATAL VITAMINS W/ FOLIC ACID TABLET (FP) PO SCH (10:05)
[2019-06-17] MEDS: NIFEdipine E.R 60 MG TABLET (UD) PO SCH (10:05)
[2019-06-17] MEDS: CYCLOBENZAPRINE HCL 5 MG TABLET PO SCH ×2 (10:05→21:43)
[2019-06-17] MEDS: CLOPIDOGREL BISULFATE 75 MG TABLET (FP) PO SCH (10:05)
[2019-06-17] MEDS: CARVEDILOL 12.5 MG TABLET (FP) PO SCH ×2 (10:05→21:44)
[2019-06-17] MEDS: amLODIPine BESYLATE 5 MG TABLET (FP) PO SCH (10:05)
[2019-06-17] MEDS: ISOSORBIDE MONONITRATE 30 MG TAB.SR.24H (FP) PO SCH (10:05)
[2019-06-17] MEDS: METHYL SALICYLATE/MENTHOL OINT 30 GM TUBE TP SCH ×2 (10:06→21:43)
[2019-06-17] MEDS: APIXABAN 5 MG TABLET PO SCH ×2 (10:06→21:43)
--- NOTE | 2019-06-17 12:59 | PN ---
[facility] Progress Note Note: Psychiatric nurse practitioner note: Patient scheduled for discharge tomorrow. A 30 day prescription of Seroquel 100mg HS was electronically sent to [facility], [address] [place] [address].
[2019-06-17] MEDS: QUEtiapine FUMARATE 100 MG TABLET (FP) PO SCH (21:43)
[2019-06-17] MEDS: THIAMINE HCL 100 MG TABLET (FP) PO SCH (21:44)
[2019-06-17] MEDS: MELATONIN 5 MG TABLETS PO PRN (21:44)
[2019-06-18] MEDS: GABAPENTIN 400 MG CAPSULE (FP) PO SCH (06:35)
[2019-06-18 06:53] VITALS: BP 123/79; PULSE 68; TEMP 97.2
[2019-06-18] MEDS: EMTRICITAB/RILPIVIRI/TENOF ALA (ODEFSEY) TABLET PO SCH (07:13)
[2019-06-18] MEDS: amLODIPine BESYLATE 5 MG TABLET (FP) PO SCH (09:00)
[2019-06-18] MEDS: CLOPIDOGREL BISULFATE 75 MG TABLET (FP) PO SCH (09:00)
[2019-06-18] MEDS: NIFEdipine E.R 60 MG TABLET (UD) PO SCH (09:00)
[2019-06-18] MEDS: PRENATAL VITAMINS W/ FOLIC ACID TABLET (FP) PO SCH (09:00)
[2019-06-18] MEDS: APIXABAN 5 MG TABLET PO SCH (09:01)
[2019-06-18] MEDS: ISOSORBIDE MONONITRATE 30 MG TAB.SR.24H (FP) PO SCH (09:01)
[2019-06-18] MEDS: METHYL SALICYLATE/MENTHOL OINT 30 GM TUBE TP SCH (09:02)
--- NOTE | 2019-06-18 09:28 | DS ---
[facility] Rehab Discharge Summary - [facility] Rehab Discharge Summary Admission Date: 06/02/19 Discharge Date: 06/18/19 - History Present History: Alcohol dependence, Cocaine dependence - Discharge Physical Exam Vital Signs: Vital Signs Temperature 97.2 F L 06/18/19 06:00 Pulse Rate 68 06/18/19 06:00 Respiratory Rate 18 06/18/19 06:00 Blood Pressure 123/79 06/18/19 06:00 O2 Sat by Pulse Oximetry (%) - Treatment Discharge Condition: Discharge condition good Hospital Course: PATIENT DISCHARGED TODAY FROM REHAB FOR ALCOHOL AND COCAINE DEPENDENCE. PATIENT REPORTS ACCOMPLISHING ALL REHAB GOALS, ATTENDED GROUP MEETINGS, ABLE TO IDENTIFY POSITIVE COPING MECHANISMS AND TRIGGERS. PATIENT CURRENTLY ON TREATMENT FOR UTI WITH LEVAQUIN AND SENSITIVITY PENDING. PATIENT HAS FOLLOW UP WITH PCP ON 06/21/19 AND IS TO CALL [facility] AT 1PM TODAY FOR URINE TEST RESULTS AND PRESCRIPTION FOR ABX UNTIL EVALUATED BY PCP. PATIENT IS MEDICALLY STABLE AND DENIES SI/HI. AFTERCARE ARRANGED FOR [employer] OTP. Laboratory Tests 06/13/19 06/15/19 11:00 12:40 Urine Color Yellow Dk yellow Urine Appearance Clear Turbid Urine pH 9.0 H D >= 9.0 H Ur Specific [place] 1.016 1.023 Urine Protein 2+ H 3+ H Urine Glucose (UA) 1+ H 1+ H Urine Ketones Negative Negative Urine Blood 3+ H 3+ H Urine Nitrite Positive H Negative Urine Bilirubin Negative Negative Urine Urobilinogen 1.0 1.0 Ur Leukocyte Esterase 3+ H 3+ H Urine WBC (Auto) 5 3 Urine RBC (Auto) 15 11 Urine Casts (Auto) 819 180 U Pathogenic Cast Auto None U Epithel Cells (Auto) 11 5.3 U Sm Round Cell (Auto) #src Urine Bacteria (Auto) 744 512.9 Vital Signs Period Temp Pulse Resp BP Sys/Flanagan Pulse Ox Last 24 Hr 97.2 F 68-70 18-18 114-123/70-79 Ambulatory Orders Nifedipine [Nifedical Xl] 60 mg PO DAILY 08/15/16 Emtricitab/Rilpivirine/Tenofov [Complera Tablet -] 1 each PO DAILY@0800 #30 tablet 09/02/16 Gabapentin [Neurontin -] 400 mg PO TID #90 capsule 09/02/16 Quetiapine Fumarate [Seroquel -] 100 mg PO HS #30 tablet 06/17/19 Quetiapine Fumarate [Seroquel -] 100 mg PO HS #30 tablet 06/17/19 Amlodipine Besylate [Norvasc -] 5 mg PO DAILY #14 tablet 06/18/19 Apixaban [Eliquis] 5 mg PO BID #30 tablet 06/18/19 Atorvastatin Ca [Lipitor] 40 mg PO HS #14 tablet 06/18/19 Carvedilol [Coreg -] 12.5 mg PO BID #30 tablet 06/18/19 Clopidogrel Bisulfate [Clopidogrel] 75 mg PO DAILY #14 tablet 06/18/19 Emtricitab/Rilpiviri/Tenof Ala [Odefsey Tablet] 1 tab PO DAILY@0800 #30 tablet 06/18/19 Isosorbide Mononitrate [Imdur -] 30 mg PO DAILY #14 tab.sr.24h 06/18/19 Nifedipine ER [Procardia XL -] 60 mg PO DAILY #14 tab.er.24 06/18/19 ROS: DENIES FEVER, URINARY URGENCY, FREQUENCY, PAIN, CHEST PAIN, SHAKES AND SOB PE: ALERT AND ORIENTED, X 3, SKIN WARM AND DRY +PERRLA, EOMS INTACT BL CAR S1S2 RESP CTA BL GI NT, ND STEWART TO LEG BAD EXT NO TREMORS, AMB AD MARVEL WITH CANE A/P: ETOH/MAXX DEPENDENCE HTN HLD HIV+ CHF PATIENT MEDICALLY STABLE FOR D/C - Medication Discharge Medications: Ambulatory Orders Nifedipine [Nifedical Xl] 60 mg PO DAILY 08/15/16 Emtricitab/Rilpivirine/Tenofov [Complera Tablet -] 1 each PO DAILY@0800 #30 tablet 09/02/16 Gabapentin [Neurontin -] 400 mg PO TID #90 capsule 09/02/16 Quetiapine Fumarate [Seroquel -] 100 mg PO HS #30 tablet 06/17/19 Quetiapine Fumarate [Seroquel -] 100 mg PO HS #30 tablet 06/17/19 Amlodipine Besylate [Norvasc -] 5 mg PO DAILY #14 tablet 06/18/19 Apixaban [Eliquis] 5 mg PO BID #30 tablet 06/18/19 Atorvastatin Ca [Lipitor] 40 mg PO HS #14 tablet 06/18/19 Carvedilol [Coreg -] 12.5 mg PO BID #30 tablet 06/18/19 Clopidogrel Bisulfate [Clopidogrel] 75 mg PO DAILY #14 tablet 06/18/19 Emtricitab/Rilpiviri/Tenof Ala [Odefsey Tablet] 1 tab PO DAILY@0800 #30 tablet 06/18/19 Isosorbide Mononitrate [Imdur -] 30 mg PO DAILY #14 tab.sr.24h 06/18/19 Nifedipine ER [Procardia XL -] 60 mg PO DAILY #14 tab.er.24 06/18/19 - Medication-Assisted Treatment (MAT) Medication-Assisted Treatment (MAT): No - Discharge Instructions Diet, activity, other medical instructions: Diet:MARCOS TOLERATED Activity: EDDI Other medical instructions: FOLLOW UP WITH PCP RECOMMENDED - Follow-up Referral Minutes to complete discharge: 30 - AMA Did Patient Leave Against Medical Advice: No
== END 2019-06-18 09:03 | disposition home or self-care (01) | DRG 305 ==
LOC: YASAS 18:14 → Y3W 18:15
PROVIDERS: ADMIT Neuromusculoskeletal Medicine & OMM; ATTEND Neuromusculoskeletal Medicine & OMM
PROC: HZ42ZZZ Group Counseling for Substance Abuse Treatment, Cognitive-Behavioral (ICD-10-PCS; principal; 2019-06-02)
DX: I10 Essential (primary) hypertension (principal); F14.20 Cocaine dependence, uncomplicated; F19.282 Other psychoactive substance dependence with psychoactive substance-induced sleep disorder; N39.0 Urinary tract infection, site not specified; F32.9 Major depressive disorder, single episode, unspecified; F17.200 Nicotine dependence, unspecified, uncomplicated; Z21 Asymptomatic human immunodeficiency virus [HIV] infection status; I25.10 Atherosclerotic heart disease of native coronary artery without angina pectoris; I11.0 Hypertensive heart disease with heart failure; E78.5 Hyperlipidemia, unspecified; M10.9 Gout, unspecified; J44.9 Chronic obstructive pulmonary disease, unspecified; J45.998 Other asthma; Z86.73 Personal history of transient ischemic attack (TIA), and cerebral infarction without residual deficits; Z86.711 Personal history of pulmonary embolism; Z86.718 Personal history of other venous thrombosis and embolism; Z79.01 Long term (current) use of anticoagulants; Z86.19 Personal history of other infectious and parasitic diseases; Z98.62 Peripheral vascular angioplasty status; Z85.528 Personal history of other malignant neoplasm of kidney
CPT/HCPCS: 81003; 87086; 87186

== ENCOUNTER 2020-07-28 12:36 | Inpatient (IN) | payer BC, OTHER ==
[2020-07-28] MEDS ORDERED: MAGNESIUM CITRATE 300 ML BOTTLE PO PRN (14:15)
[2020-07-28] MEDS ORDERED: METHOCARBAMOL 500 MG TABLET PO PRN (14:15)
[2020-07-28] MEDS ORDERED: ACETAMINOPHEN 325 MG TABLET (FP) PO PRN ×2 (14:15)
[2020-07-28] MEDS ORDERED: IBUPROFEN 400 MG TABLET (FP) PO PRN (14:15)
[2020-07-28] MEDS ORDERED: MENTHOL/PHENOL 1 EACH UD MM PRN (14:15)
[2020-07-28] MEDS ORDERED: chlordiazePOXIDE HCL 25 MG CAPSULE PO PRN (14:15)
[2020-07-28] MEDS ORDERED: MAG HYDROX/AL HYDROX/SIMETH 30 ML UNIT-DOSE CUP PO PRN (14:15)
[2020-07-28] MEDS ORDERED: BISMUTH SUBSALICYLATE 524 MG/30 ML UD PO PRN (14:15)
[2020-07-28] MEDS ORDERED: MAGNESIUM HYDROX 2400MG/30ML ORAL SUSPENSION 30 ML CUP PO PRN (14:15)
[2020-07-28] MEDS ORDERED: ONDANSETRON *ODT* 4 MG TABLET SL PRN (14:15)
[2020-07-28] MEDS ORDERED: NICOTINE POLACRILEX 2 MG GUM BUC PRN (14:15)
[2020-07-28] MEDS: amLODIPine BESYLATE 5 MG TABLET (FP) PO SCH (14:36)
[2020-07-28 16:22] VITALS: BMI 21.9
[2020-07-28] MEDS ORDERED: cloNIDine HCL 0.1 MG TABLET PO ONE (17:39)
[2020-07-28] MEDS: chlordiazePOXIDE HCL 25 MG CAPSULE PO SCH ×2 (17:40→23:07)
[2020-07-28] MEDS: CLOPIDOGREL BISULFATE 75 MG TABLET (FP) PO SCH (17:40)
[2020-07-28] MEDS: NICOTINE 14 MG/24 HOURS TOPICAL PATCH TD SCH (17:44)
[2020-07-28] MEDS ORDERED: hydrOXYzine PAMOATE 25 MG CAPSULE (FP) PO SCH (18:00)
[2020-07-28] MEDS: APIXABAN 5 MG TABLET PO SCH (23:06)
[2020-07-28] MEDS: ATORVASTATIN CA 40 MG TABLET (FP) PO SCH (23:06)
[2020-07-28] MEDS: THIAMINE HCL 100 MG TABLET (FP) PO SCH (23:06)
[2020-07-28] MEDS: CARVEDILOL 12.5 MG TABLET (FP) PO SCH (23:06)
[2020-07-28] MEDS: MELATONIN 5 MG TABLETS PO SCH (23:07)
[2020-07-29] MEDS ORDERED: MASKS NR ONE ×2 (02:37→05:44)
[2020-07-29] MEDS: chlordiazePOXIDE HCL 25 MG CAPSULE PO SCH ×4 (05:44→23:26)
[2020-07-29] MEDS: CLOPIDOGREL BISULFATE 75 MG TABLET (FP) PO SCH (10:36)
[2020-07-29] MEDS: APIXABAN 5 MG TABLET PO SCH ×2 (10:36→23:18)
[2020-07-29] MEDS: CARVEDILOL 12.5 MG TABLET (FP) PO SCH ×2 (10:36→23:19)
[2020-07-29] MEDS: PRENATAL VITAMINS W/ FOLIC ACID TABLET (FP) PO SCH (10:36)
[2020-07-29] MEDS: NICOTINE 14 MG/24 HOURS TOPICAL PATCH TD SCH (10:37)
[2020-07-29] MEDS: amLODIPine BESYLATE 5 MG TABLET (FP) PO SCH (10:37)
[2020-07-29 12:20] LABS: POTASSIUM 4.4 mmol/L (3.5-5.1)
[2020-07-29 12:21] LABS: HEMATOCRIT 37.9 % (35.4-49); HEMOGLOBIN 12.2 GM/dL (11.7-16.9); MCH 28.9 pg (25.7-33.7); MCHC 32.3 g/dl (32.0-35.9); MEAN CELL VOLUME 89.5 fl (80-96); MEAN PLT VOLUME 11.5 fl (7.5-11.1); PLATELET COUNT 127 K/MM3 (134-434); RBC 4.24 M/mm3 (4.00-5.60); RDW 16.6 % (11.9-15.9); WHITE BLOOD COUNT 4.2 K/mm3 (4.0-10.0)
[2020-07-29 12:23] LABS: ALBUMIN 2.6 g/dl (3.4-5.0); BLOOD UREA NITROGEN 41.1 mg/dL (7-18)
[2020-07-29 12:26] LABS: CREATININE 2.2 mg/dL (0.55-1.3)
[2020-07-29 12:28] LABS: BILIRUBIN,TOTAL 0.4 mg/dL (0.2-1); TOT PROT 6.3 g/dl (6.4-8.2)
[2020-07-29 12:50] LABS: INR 1.39 (0.83-1.09); PROTHROMBIN TIME (PATIENT) 16.7 SEC (9.7-13.0)
[2020-07-29] MEDS: hydrOXYzine PAMOATE 25 MG CAPSULE (FP) PO PRN ×2 (19:08→23:18)
[2020-07-29] MEDS: THIAMINE HCL 100 MG TABLET (FP) PO SCH (23:18)
[2020-07-29] MEDS: MELATONIN 5 MG TABLETS PO SCH (23:18)
[2020-07-29] MEDS: QUEtiapine FUMARATE 50 MG TABLET PO SCH (23:19)
[2020-07-29] MEDS: ATORVASTATIN CA 40 MG TABLET (FP) PO SCH (23:19)
[2020-07-30] MEDS: chlordiazePOXIDE HCL 25 MG CAPSULE PO SCH ×4 (06:47→23:21)
[2020-07-30] MEDS: NICOTINE 14 MG/24 HOURS TOPICAL PATCH TD SCH (10:47)
[2020-07-30] MEDS: CLOPIDOGREL BISULFATE 75 MG TABLET (FP) PO SCH (10:47)
[2020-07-30] MEDS: PRENATAL VITAMINS W/ FOLIC ACID TABLET (FP) PO SCH (10:47)
[2020-07-30] MEDS: amLODIPine BESYLATE 5 MG TABLET (FP) PO SCH (10:47)
[2020-07-30] MEDS: APIXABAN 5 MG TABLET PO SCH ×2 (10:51→23:20)
[2020-07-30] MEDS: CARVEDILOL 6.25 MG TABLET (FP) PO SCH ×2 (10:51→23:20)
[2020-07-30 16:28] VITALS: BP 145/113; PULSE 73; TEMP 97.3
[2020-07-30] MEDS: ATORVASTATIN CA 40 MG TABLET (FP) PO SCH (23:21)
[2020-07-30] MEDS: QUEtiapine FUMARATE 50 MG TABLET PO SCH (23:22)
[2020-07-30] MEDS: MELATONIN 5 MG TABLETS PO SCH (23:22)
[2020-07-30] MEDS: THIAMINE HCL 100 MG TABLET (FP) PO SCH (23:22)
[2020-07-31] MEDS ORDERED: chlordiazePOXIDE HCL 10 MG CAPSULE PO PRN
[2020-07-31] MEDS ORDERED: chlordiazePOXIDE HCL 10 MG CAPSULE PO SCH (05:00)
[2020-08-01] MEDS ORDERED: chlordiazePOXIDE HCL 10 MG CAPSULE PO SCH (05:00)
[2020-08-02] MEDS ORDERED: chlordiazePOXIDE HCL 10 MG CAPSULE PO ONE (05:00)
== END 2020-07-31 06:28 | disposition short-term general hospital (02) | DRG 897 ==
LOC: YASAS 12:36 → Y3N 16:09 → Y6N 07-30 22:42
PROVIDERS: ADMIT Allergy & Immunology; ATTEND Allergy & Immunology
PROC: HZ2ZZZZ Detoxification Services for Substance Abuse Treatment (ICD-10-PCS; principal; 2020-07-28)
DX: F10.230 Alcohol dependence with withdrawal, uncomplicated (principal); F14.20 Cocaine dependence, uncomplicated; F19.282 Other psychoactive substance dependence with psychoactive substance-induced sleep disorder; F31.81 Bipolar II disorder; C64.1 Malignant neoplasm of right kidney, except renal pelvis; F17.210 Nicotine dependence, cigarettes, uncomplicated; I10 Essential (primary) hypertension; I25.10 Atherosclerotic heart disease of native coronary artery without angina pectoris; I25.2 Old myocardial infarction; Z21 Asymptomatic human immunodeficiency virus [HIV] infection status; N28.9 Disorder of kidney and ureter, unspecified; G47.00 Insomnia, unspecified; J44.9 Chronic obstructive pulmonary disease, unspecified; E78.5 Hyperlipidemia, unspecified; B18.2 Chronic viral hepatitis C; R74.01 Elevation of levels of liver transaminase levels; R41.82 Altered mental status, unspecified; R41.0 Disorientation, unspecified; R63.4 Abnormal weight loss; Z68.22 Body mass index [BMI] 22.0-22.9, adult; W19.XXXA Unspecified fall, initial encounter; Y93.9 Activity, unspecified; Y92.239 Unspecified place in hospital as the place of occurrence of the external cause; Z96.0 Presence of urogenital implants; Z86.73 Personal history of transient ischemic attack (TIA), and cerebral infarction without residual deficits; Z86.711 Personal history of pulmonary embolism; Z86.718 Personal history of other venous thrombosis and embolism; Z98.61 Coronary angioplasty status; Z86.69 Personal history of other diseases of the nervous system and sense organs; R26.2 Difficulty in walking, not elsewhere classified; Z99.89 Dependence on other enabling machines and devices
CPT/HCPCS: 36415; 80053; 85027; 85610; 86780; C9803; J0735; U0003

== ENCOUNTER 2020-07-30 16:39 | Inpatient (IN) | payer BC, OTHER ==
[2020-07-30 17:12] VITALS: BMI 21.5
[2020-07-30] MEDS ORDERED: LORazepam 2 MG/ML SDV VIAL IVPUSH STA (20:02)
[2020-07-30] MEDS ORDERED: HALOPERIDOL LACTATE 5 MG/ML IM ONE (20:02)
[2020-07-30] MEDS ORDERED: HALOPERIDOL LACTATE 5 MG/ML ONE (20:06)
[2020-07-30] MEDS ORDERED: LORazepam 2 MG/ML SDV VIAL ONE (20:07)
[2020-07-30 20:09] LABS: BASO % 0.6 % (0-2.0); HEMATOCRIT 40.4 % (35.4-49); HEMOGLOBIN 12.9 GM/dL (11.7-16.9); LYMPH % 28.3 % (8-40); MCH 29.1 pg (25.7-33.7); MEAN CELL VOLUME 91.1 fl (80-96); MEAN PLT VOLUME 11.3 fl (7.5-11.1); MONO % 6.5 % (3.8-10.2); NEUT % 61.6 % (42.8-82.8); RBC 4.43 M/mm3 (4.00-5.60); RDW 17.3 % (11.9-15.9); WHITE BLOOD COUNT 4.4 K/mm3 (4.0-10.0)
[2020-07-30] MEDS ORDERED: LORazepam 2 MG/ML SDV VIAL IM STA (20:12)
[2020-07-30 20:16] LABS: INR 1.34 (0.83-1.09); PROTHROMBIN TIME (PATIENT) 16.3 SEC (9.7-13.0)
[2020-07-30 20:19] LABS: ACTIVATED PTT 33.5 SECONDS (25.2-36.5)
[2020-07-30 20:22] LABS: POTASSIUM 4.5 mmol/L (3.5-5.1)
[2020-07-30] MEDS ORDERED: DEXAMETHASONE SOD PHOSPHATE 4 MG/1 ML VIAL ONE (20:24)
[2020-07-30 20:26] LABS: BLOOD UREA NITROGEN 30.3 mg/dL (7-18); CALCIUM 9.2 mg/dL (8.5-10.1)
[2020-07-30 20:27] LABS: MAGNESIUM 2.4 mg/dL (1.8-2.4)
[2020-07-30 20:30] LABS: CREATININE 1.9 mg/dL (0.55-1.3)
[2020-07-30 20:31] LABS: BILIRUBIN,TOTAL 0.5 mg/dL (0.2-1); TOT PROT 7.6 g/dl (6.4-8.2)
[2020-07-30 20:32] LABS: PLATELET COUNT 132 K/MM3 (134-434); PLATELET ESTIMATE DECREASED
[2020-07-30] MEDS: ALBUTEROL SO4 2.5/IPRATROPIUM 0.5 INH SOL 3 ML VIAL.NEB. NEB PRN ×2 (21:04→21:40)
[2020-07-30] MEDS ORDERED: ALBUTEROL SO4 2.5/IPRATROPIUM 0.5 INH SOL 3 ML VIAL.NEB. NEB ONE ×2 (21:23→21:56)
[2020-07-30 22:38] LABS: N-TERMINAL BNP 38005.2 pg/ml (5-125)
[2020-07-30 22:41] LABS: OPIATES, URI NEGATIVE ng/ml (CUTOFF=300); PHENCYCLIDINE,URINE NEGATIVE ng/ml (CUTOFF=25); URINE AMPHETAMINES NEGATIVE ng/ml (CUTOFF=500)
[2020-07-30 22:43] LABS: EPI CELLS 7 /uL (0-25.1); HYALINE CASTS 2 /uL (0-3.1); PH,URINE 5.5 (5.0-8.0); URINE APPEARANCE TURBID; URINE BACTERIA >9,000 /uL (0-1359); URINE BILIRUBIN NEGATIVE (NEGATIVE); URINE COLOR YELLOW; URINE GLUCOSE (UA) NEGATIVE (NEGATIVE); URINE KETONE NEGATIVE (NEGATIVE); URINE LEUK ESTERASE 2+ (NEGATIVE); URINE NITRITE NEGATIVE (NEGATIVE); URINE PROTEIN 3+ (NEGATIVE); URINE RBC 109 /uL (0-23.9); URINE UROBILINOGEN 0.2 mg/dL (0.2-1.0); URINE WBC 2431 /uL (0-25.8)
[2020-07-30 22:44] LABS: METHADONE, UR NEGATIVE ng/ml (CUTOFF=300)
[2020-07-30] MEDS ORDERED: FUROSEMIDE 40 MG/4 ML INJECTABLE VIAL IVPUSH ONE (22:44)
[2020-07-30] MEDS ORDERED: CEFTRIAXONE 1,000 MG in DEXTROSE 5%-WATER - 50 ML IVPB ONE (22:44)
[2020-07-30 22:57] LABS: ARTERIAL BLD GAS O2 SATURATION 98.6 mmHg (95-98); ARTERIAL BLOOD GAS BASE EXCESS -3.8 mmol/L (-2-2); ARTERIAL BLOOD GAS pH 7.454 (7.350-7.450)
[2020-07-30 22:59] LABS: COCAINE, UR POSITIVE ng/ml (CUTOFF=300); URINE BARBITURATES POSITIVE ng/ml (CUTOFF=200); URINE BENZODIAZEPINES POSITIVE ng/ml (CUTOFF=200)
[2020-07-30 23:36] LABS: MAGNESIUM 2.3 mg/dL (1.8-2.4)
[2020-07-30] MEDS ORDERED: cefTRIAXone SODIUM 1 GM VIAL ONE (23:40)
[2020-07-30] MEDS ORDERED: FUROSEMIDE 40 MG/4 ML INJECTABLE VIAL ONE (23:41)
[2020-07-31] MEDS: GABAPENTIN 400 MG CAPSULE PO SCH ×3 (06:53→22:30)
[2020-07-31 07:21] LABS: PHOSPHOROUS 3.6 mg/dL (2.5-4.9)
[2020-07-31] MEDS ORDERED: FUROSEMIDE 40 MG/4 ML INJECTABLE VIAL IVPUSH SCH (10:00)
[2020-07-31] MEDS ORDERED: CEFTRIAXONE 1 GM in DEXTROSE 5%-WATER - 50 ML IVPB SCH (10:00)
[2020-07-31] MEDS ORDERED: ALBUTEROL SO4 2.5/IPRATROPIUM 0.5 INH SOL 3 ML VIAL.NEB. NEB ONE (10:16)
[2020-07-31] MEDS: FOLIC ACID 1 MG TABLET (FP) PO SCH (10:32)
[2020-07-31] MEDS: CLOPIDOGREL BISULFATE 75 MG TABLET (FP) PO SCH (10:32)
[2020-07-31] MEDS: amLODIPine BESYLATE 5 MG TABLET (FP) PO SCH (10:32)
[2020-07-31] MEDS: APIXABAN 5 MG TABLET PO SCH ×2 (10:32→22:08)
[2020-07-31] MEDS ORDERED: ALBUTEROL SO4 0.083% IH SOL 2.5 MG/3 ML VIAL.NEB. NEB PRN (16:54)
[2020-07-31] MEDS ORDERED: VANCOMYCIN 1 GM in D5W (PRE-DOCKED) 1,000 MG/250 ML IVPB ONE (17:45)
[2020-07-31] MEDS ORDERED: PIPERACILLIN/TAZOB 3.375 GM 3.375 GM in DEXTROSE 5%-WATER - 50 ML IVPB SCH (18:00)
[2020-07-31] MEDS ORDERED: LACTATED RINGERS SOLUTION 1,000 ML/1,000 ML INFUS.BAG IV STA (18:25)
[2020-07-31] MEDS ORDERED: LACTATED RINGERS SOLUTION 1,000 ML/1,000 ML INFUS.BAG IV SCH (18:30)
[2020-07-31 18:34] LABS: ARTERIAL BLD GAS O2 SATURATION 87.1 mmHg (95-98); ARTERIAL BLOOD GAS BASE EXCESS 1.3 mmol/L (-2-2); ARTERIAL BLOOD GAS PO2 49.5 mmHg (80-100); ARTERIAL BLOOD GAS pH 7.455 (7.350-7.450)
[2020-07-31 18:37] LABS: ALLENS TEST POSITIVE
[2020-07-31] MEDS ORDERED: PIPERACILLIN/TAZOB 3.375 GM 3.375 GM/50 ML BAG IVPB ONE (18:41)
[2020-07-31] MEDS: LORazepam 2 MG/ML SDV VIAL IVPUSH PRN (18:42)
[2020-07-31 20:05] LABS: BASO % 0.4 % (0-2.0); HEMATOCRIT 42.4 % (35.4-49); HEMOGLOBIN 13.9 GM/dL (11.7-16.9); LYMPH % 10.8 % (8-40); MCH 29.2 pg (25.7-33.7); MCHC 32.7 g/dl (32.0-35.9); MEAN CELL VOLUME 89.4 fl (80-96); MEAN PLT VOLUME 10.8 fl (7.5-11.1); MONO % 4.6 % (3.8-10.2); NEUT % 84.2 % (42.8-82.8); PLATELET COUNT 189 K/MM3 (134-434); RBC 4.74 M/mm3 (4.00-5.60); RDW 17.1 % (11.9-15.9); WHITE BLOOD COUNT 7.3 K/mm3 (4.0-10.0)
[2020-07-31 20:25] LABS: POTASSIUM 5.2 mmol/L (3.5-5.1)
[2020-07-31 20:26] LABS: CALCIUM 9.5 mg/dL (8.5-10.1)
[2020-07-31 20:27] LABS: ALBUMIN 2.9 g/dl (3.4-5.0); BLOOD UREA NITROGEN 35.6 mg/dL (7-18)
[2020-07-31 20:30] LABS: CREATININE 1.8 mg/dL (0.55-1.3)
[2020-07-31 20:32] LABS: BILIRUBIN,TOTAL 0.6 mg/dL (0.2-1); TOT PROT 7.7 g/dl (6.4-8.2)
[2020-07-31] MEDS ORDERED: DEXTROSE 5%-WATER - 50 ML IVPB ONE (22:00)
[2020-07-31] MEDS ORDERED: PIPERACILLIN/TAZOBACTAM 3.375 GM VIAL IVPB ONE (22:00)
[2020-07-31] MEDS: THIAMINE HCL 100 MG TABLET (FP) PO SCH (22:08)
[2020-07-31] MEDS: PIPERACILLIN/TAZOB 3.375 GM 3.375 GM in DEXTROSE 5%-WATER - 50 ML IVPB SCH (22:08)
[2020-08-01] MEDS ORDERED: PIPERACILLIN/TAZOBACTAM 3.375 GM VIAL IVPB ONE ×3 (02:29→16:16)
[2020-08-01] MEDS ORDERED: DEXTROSE 5%-WATER - 50 ML IVPB ONE ×3 (02:30→16:16)
[2020-08-01] MEDS: PIPERACILLIN/TAZOB 3.375 GM 3.375 GM in DEXTROSE 5%-WATER - 50 ML IVPB SCH ×3 (02:47→17:49)
[2020-08-01] MEDS: GABAPENTIN 400 MG CAPSULE PO SCH ×3 (05:39→21:06)
[2020-08-01] MEDS ORDERED: PT OWN MED DRAWER 7, Y5N ONE ×3 (05:56→20:34)
[2020-08-01 07:51] LABS: BASO % 0.4 % (0-2.0); EOS % 0.5 % (0-4.5); HEMATOCRIT 39.1 % (35.4-49); HEMOGLOBIN 12.7 GM/dL (11.7-16.9); LYMPH % 12.9 % (8-40); MCH 29.2 pg (25.7-33.7); MCHC 32.6 g/dl (32.0-35.9); MEAN CELL VOLUME 89.6 fl (80-96); MEAN PLT VOLUME 11.1 fl (7.5-11.1); MONO % 5.2 % (3.8-10.2); PLATELET COUNT 133 K/MM3 (134-434); RBC 4.36 M/mm3 (4.00-5.60); RDW 16.9 % (11.9-15.9); WHITE BLOOD COUNT 7.9 K/mm3 (4.0-10.0)
[2020-08-01 08:04] LABS: POTASSIUM 4.2 mmol/L (3.5-5.1)
[2020-08-01 08:13] LABS: ALBUMIN 2.8 g/dl (3.4-5.0); BLOOD UREA NITROGEN 35.8 mg/dL (7-18); CALCIUM 9.1 mg/dL (8.5-10.1)
[2020-08-01 08:17] LABS: CREATININE 1.8 mg/dL (0.55-1.3)
[2020-08-01 08:18] LABS: BILIRUBIN,TOTAL 0.9 mg/dL (0.2-1); TOT PROT 6.8 g/dl (6.4-8.2)
[2020-08-01] MEDS: CLOPIDOGREL BISULFATE 75 MG TABLET (FP) PO SCH (09:52)
[2020-08-01] MEDS: CARVEDILOL 12.5 MG TABLET (FP) PO SCH ×2 (09:52→21:05)
[2020-08-01] MEDS: APIXABAN 5 MG TABLET PO SCH ×2 (09:52→21:06)
[2020-08-01] MEDS: amLODIPine BESYLATE 5 MG TABLET (FP) PO SCH (09:52)
[2020-08-01] MEDS: FOLIC ACID 1 MG TABLET (FP) PO SCH (09:52)
[2020-08-01] MEDS: FUROSEMIDE 40 MG/4 ML INJECTABLE VIAL IVPUSH SCH (09:53)
[2020-08-01] MEDS: LORazepam 2 MG/ML SDV VIAL IVPUSH PRN (10:41)
[2020-08-01] MEDS ORDERED: VANCOMYCIN 1 GM in D5W (PRE-DOCKED) 1,000 MG/250 ML IVPB ONE (14:32)
[2020-08-01] MEDS ORDERED: LORazepam 1 MG TABLET PO PRN (15:47)
[2020-08-01] MEDS: QUEtiapine FUMARATE 100 MG TABLET (FP) PO SCH (21:06)
[2020-08-01] MEDS: THIAMINE HCL 100 MG TABLET (FP) PO SCH (21:06)
[2020-08-02] MEDS ORDERED: PIPERACILLIN/TAZOBACTAM 3.375 GM VIAL IVPB ONE ×2 (00:38→09:49)
[2020-08-02] MEDS ORDERED: DEXTROSE 5%-WATER - 50 ML IVPB ONE ×2 (00:39→09:49)
[2020-08-02] MEDS: PIPERACILLIN/TAZOB 3.375 GM 3.375 GM in DEXTROSE 5%-WATER - 50 ML IVPB SCH ×2 (01:11→10:16)
[2020-08-02 04:14] LABS: POTASSIUM 3.7 mmol/L (3.5-5.1)
[2020-08-02 04:15] LABS: CALCIUM 9.4 mg/dL (8.5-10.1)
[2020-08-02 04:16] LABS: BLOOD UREA NITROGEN 38.1 mg/dL (7-18); MAGNESIUM 2.2 mg/dL (1.8-2.4)
[2020-08-02 04:19] LABS: CREATININE 1.9 mg/dL (0.55-1.3)
[2020-08-02] MEDS ORDERED: ACETAMINOPHEN 1000 MG/100 ML VIAL (NON FORMULARY) IVPB ONE (05:11)
[2020-08-02] MEDS: GABAPENTIN 400 MG CAPSULE PO SCH ×3 (07:08→22:20)
[2020-08-02 07:43] LABS: HEMATOCRIT 41.8 % (35.4-49); HEMOGLOBIN 13.5 GM/dL (11.7-16.9); MCHC 32.3 g/dl (32.0-35.9); MEAN CELL VOLUME 89.8 fl (80-96); MEAN PLT VOLUME 9.8 fl (7.5-11.1); PLATELET COUNT 118 K/MM3 (134-434); RBC 4.66 M/mm3 (4.00-5.60); WHITE BLOOD COUNT 5.5 K/mm3 (4.0-10.0)
[2020-08-02 07:49] LABS: POTASSIUM 3.7 mmol/L (3.5-5.1)
[2020-08-02] MEDS ORDERED: EMTRICITAB/RILPIVIRI/TENOF ALA (ODEFSEY) TABLET PO SCH (08:00)
[2020-08-02 08:17] LABS: CALCIUM 9.5 mg/dL (8.5-10.1)
[2020-08-02 08:18] LABS: ALBUMIN 2.9 g/dl (3.4-5.0); BLOOD UREA NITROGEN 39.5 mg/dL (7-18)
[2020-08-02 08:21] LABS: CREATININE 1.9 mg/dL (0.55-1.3)
[2020-08-02 08:24] LABS: BILIRUBIN,TOTAL 0.6 mg/dL (0.2-1); TOT PROT 6.9 g/dl (6.4-8.2)
[2020-08-02] MEDS: FUROSEMIDE 40 MG/4 ML INJECTABLE VIAL IVPUSH SCH (10:17)
[2020-08-02] MEDS: FOLIC ACID 1 MG TABLET (FP) PO SCH (12:37)
[2020-08-02] MEDS: CARVEDILOL 12.5 MG TABLET (FP) PO SCH (12:37)
[2020-08-02] MEDS: APIXABAN 5 MG TABLET PO SCH ×2 (12:37→22:20)
[2020-08-02] MEDS: amLODIPine BESYLATE 10 MG TABLET (FP) PO SCH (12:37)
[2020-08-02] MEDS: CLOPIDOGREL BISULFATE 75 MG TABLET (FP) PO SCH (12:37)
[2020-08-02] MEDS ORDERED: PT OWN MED DRAWER 7, Y5N ONE ×2 (13:22→21:58)
[2020-08-02] MEDS ORDERED: LORazepam 2 MG/ML SDV VIAL IVPUSH ONE (13:28)
[2020-08-02] MEDS ORDERED: AMPICILLIN SODIUM 2 GM VIAL ONE ×3 (13:37→21:27)
[2020-08-02] MEDS ORDERED: SODIUM CHLORIDE 100 ML IVPB ONE ×3 (13:37→21:27)
[2020-08-02] MEDS: AMPICILLIN - 2 GM in SODIUM CHLORIDE 100 ML IVPB SCH ×3 (13:40→21:32)
[2020-08-02] MEDS ORDERED: LORazepam 2 MG/ML SDV VIAL IVPUSH PRN (13:51)
[2020-08-02] MEDS: ERTAPENEM SODIUM 1 GM in SODIUM CHLORIDE 50 ML IVPB SCH (16:32)
[2020-08-02] MEDS ORDERED: LORazepam 1 MG TABLET PO PRN (16:42)
[2020-08-02] MEDS: LORazepam 1 MG TABLET PO SCH ×2 (17:19→22:21)
[2020-08-02] MEDS: AMIODARONE HCL 200 MG TABLET PO SCH (22:20)
[2020-08-02] MEDS: QUEtiapine FUMARATE 100 MG TABLET (FP) PO SCH (22:21)
[2020-08-02] MEDS: THIAMINE HCL 100 MG TABLET (FP) PO SCH (22:21)
[2020-08-03] MEDS ORDERED: AMPICILLIN SODIUM 2 GM VIAL ONE ×4 (03:08→21:02)
[2020-08-03] MEDS ORDERED: SODIUM CHLORIDE 100 ML IVPB ONE ×4 (03:09→21:02)
[2020-08-03] MEDS: AMPICILLIN - 2 GM in SODIUM CHLORIDE 100 ML IVPB SCH ×4 (03:11→21:07)
[2020-08-03] MEDS ORDERED: PT OWN MED DRAWER 7, Y5N ONE ×3 (06:16→21:50)
[2020-08-03] MEDS: LORazepam 1 MG TABLET PO SCH ×4 (06:37→22:36)
[2020-08-03] MEDS: GABAPENTIN 400 MG CAPSULE PO SCH ×3 (06:38→21:25)
[2020-08-03] MEDS: FUROSEMIDE 40 MG/4 ML INJECTABLE VIAL IVPUSH SCH (10:30)
[2020-08-03] MEDS: APIXABAN 5 MG TABLET PO SCH ×2 (10:31→21:18)
[2020-08-03] MEDS: CLOPIDOGREL BISULFATE 75 MG TABLET (FP) PO SCH (10:31)
[2020-08-03] MEDS: amLODIPine BESYLATE 10 MG TABLET (FP) PO SCH (10:31)
[2020-08-03] MEDS: FOLIC ACID 1 MG TABLET (FP) PO SCH (10:31)
[2020-08-03] MEDS: AMIODARONE HCL 200 MG TABLET PO SCH ×2 (10:31→21:18)
[2020-08-03] MEDS: ERTAPENEM SODIUM 1 GM in SODIUM CHLORIDE 50 ML IVPB SCH (11:14)
[2020-08-03] MEDS ORDERED: TAMSULOSIN HCL 0.4 MG CAP PO ONE (14:19)
[2020-08-03] MEDS: THIAMINE HCL 100 MG TABLET (FP) PO SCH (21:18)
[2020-08-03] MEDS: QUEtiapine FUMARATE 100 MG TABLET (FP) PO SCH (21:19)
[2020-08-04] MEDS ORDERED: AMPICILLIN SODIUM 2 GM VIAL ONE ×2 (02:24→23:44)
[2020-08-04] MEDS ORDERED: SODIUM CHLORIDE 100 ML IVPB ONE ×2 (02:24→23:45)
[2020-08-04] MEDS: AMPICILLIN - 2 GM in SODIUM CHLORIDE 100 ML IVPB SCH ×4 (02:38→23:45)
[2020-08-04] MEDS ORDERED: LORazepam 1 MG TABLET PO SCH (05:00)
[2020-08-04] MEDS: GABAPENTIN 400 MG CAPSULE PO SCH ×3 (06:37→21:11)
[2020-08-04] MEDS ORDERED: PT OWN MED DRAWER 7, Y5N ONE ×3 (06:46→18:04)
[2020-08-04] MEDS: ERTAPENEM SODIUM 1 GM in SODIUM CHLORIDE 50 ML IVPB SCH (10:29)
[2020-08-04 10:30] LABS: POTASSIUM 3.8 mmol/L (3.5-5.1)
[2020-08-04 10:34] LABS: BLOOD UREA NITROGEN 27.3 mg/dL (7-18); MAGNESIUM 2.4 mg/dL (1.8-2.4)
[2020-08-04 10:38] LABS: CREATININE 1.5 mg/dL (0.55-1.3)
[2020-08-04 10:39] LABS: BILIRUBIN,TOTAL 0.6 mg/dL (0.2-1); TOT PROT 7.3 g/dl (6.4-8.2)
[2020-08-04 10:44] LABS: BASO % 0.8 % (0-2.0); EOS % 4.5 % (0-4.5); HEMATOCRIT 49.2 % (35.4-49); HEMOGLOBIN 15.7 GM/dL (11.7-16.9); LYMPH % 19.3 % (8-40); MCH 28.7 pg (25.7-33.7); MCHC 31.9 g/dl (32.0-35.9); MEAN CELL VOLUME 89.8 fl (80-96); MEAN PLT VOLUME 10.3 fl (7.5-11.1); MONO % 6.7 % (3.8-10.2); NEUT % 68.7 % (42.8-82.8); PLATELET COUNT 144 K/MM3 (134-434); RBC 5.48 M/mm3 (4.00-5.60); RDW 16.6 % (11.9-15.9); WHITE BLOOD COUNT 5.6 K/mm3 (4.0-10.0)
[2020-08-04 10:59] LABS: ALBUMIN 2.9 g/dl (3.4-5.0); CALCIUM 9.4 mg/dL (8.5-10.1)
[2020-08-04] MEDS: FUROSEMIDE 40 MG TABLET (FP) PO SCH (12:11)
[2020-08-04] MEDS: CLOPIDOGREL BISULFATE 75 MG TABLET (FP) PO SCH (12:11)
[2020-08-04] MEDS: APIXABAN 5 MG TABLET PO SCH ×2 (12:11→21:11)
[2020-08-04] MEDS: amLODIPine BESYLATE 10 MG TABLET (FP) PO SCH (12:11)
[2020-08-04] MEDS: AMIODARONE HCL 200 MG TABLET PO SCH ×2 (12:11→21:10)
[2020-08-04] MEDS: FOLIC ACID 1 MG TABLET (FP) PO SCH (12:12)
[2020-08-04 12:16] LABS: ARTERIAL BLD GAS O2 SATURATION 98.1 mmHg (95-98); ARTERIAL BLOOD GAS PO2 111.6 mmHg (80-100); ARTERIAL BLOOD GAS pH 7.419 (7.350-7.450)
[2020-08-04 12:17] LABS: ALLENS TEST POSITIVE
[2020-08-04] MEDS: EMTRICITAB/RILPIVIRI/TENOF ALA (ODEFSEY) TABLET PO SCH (17:33)
[2020-08-04] MEDS: THIAMINE HCL 100 MG TABLET (FP) PO SCH (21:10)
[2020-08-04] MEDS: QUEtiapine FUMARATE 100 MG TABLET (FP) PO SCH (21:10)
[2020-08-05] MEDS ORDERED: LORazepam 0.5 MG TABLET PO PRN
[2020-08-05] MEDS ORDERED: SODIUM CHLORIDE 100 ML IVPB ONE ×4 (04:17→21:09)
[2020-08-05] MEDS ORDERED: AMPICILLIN SODIUM 2 GM VIAL ONE ×4 (04:17→21:08)
[2020-08-05] MEDS: AMPICILLIN - 2 GM in SODIUM CHLORIDE 100 ML IVPB SCH ×4 (04:18→21:15)
[2020-08-05] MEDS ORDERED: LORazepam 0.5 MG TABLET PO SCH (05:00)
[2020-08-05] MEDS: GABAPENTIN 400 MG CAPSULE PO SCH ×3 (06:04→21:17)
[2020-08-05] MEDS: EMTRICITAB/RILPIVIRI/TENOF ALA (ODEFSEY) TABLET PO SCH (11:03)
[2020-08-05] MEDS: FUROSEMIDE 40 MG TABLET (FP) PO SCH (11:04)
[2020-08-05] MEDS: amLODIPine BESYLATE 10 MG TABLET (FP) PO SCH (11:04)
[2020-08-05] MEDS: CLOPIDOGREL BISULFATE 75 MG TABLET (FP) PO SCH (11:04)
[2020-08-05] MEDS: APIXABAN 5 MG TABLET PO SCH ×2 (11:04→21:16)
[2020-08-05] MEDS: FOLIC ACID 1 MG TABLET (FP) PO SCH (11:04)
[2020-08-05] MEDS: ATOVAQUONE 750 MG/5 ML (UNIT-DOSE PACKAGING) PO SCH (11:04)
[2020-08-05] MEDS: ERTAPENEM SODIUM 1 GM in SODIUM CHLORIDE 50 ML IVPB SCH (12:39)
[2020-08-05] MEDS: AMIODARONE HCL 200 MG TABLET PO SCH ×2 (12:39→21:16)
[2020-08-05 15:46] LABS: BASO % 0.7 % (0-2.0); EOS % 4.2 % (0-4.5); HEMATOCRIT 48.3 % (35.4-49); HEMOGLOBIN 15.5 GM/dL (11.7-16.9); MEAN CELL VOLUME 90.5 fl (80-96); MEAN PLT VOLUME 9.9 fl (7.5-11.1); MONO % 5.3 % (3.8-10.2); NEUT % 72.8 % (42.8-82.8); PLATELET COUNT 154 K/MM3 (134-434); RBC 5.34 M/mm3 (4.00-5.60); RDW 16.4 % (11.9-15.9); WHITE BLOOD COUNT 6.7 K/mm3 (4.0-10.0)
[2020-08-05 16:05] LABS: POTASSIUM 3.5 mmol/L (3.5-5.1)
[2020-08-05 16:07] LABS: ALBUMIN 3.1 g/dl (3.4-5.0); CALCIUM 9.7 mg/dL (8.5-10.1)
[2020-08-05 16:08] LABS: BLOOD UREA NITROGEN 32.2 mg/dL (7-18); MAGNESIUM 2.5 mg/dL (1.8-2.4)
[2020-08-05 16:11] LABS: CREATININE 2.1 mg/dL (0.55-1.3)
[2020-08-05 16:12] LABS: TOT PROT 7.7 g/dl (6.4-8.2)
[2020-08-05 16:14] LABS: BILIRUBIN,TOTAL 0.8 mg/dL (0.2-1)
[2020-08-05] MEDS ORDERED: PT OWN MED DRAWER 7, Y5N ONE (21:10)
[2020-08-05] MEDS: QUEtiapine FUMARATE 100 MG TABLET (FP) PO SCH (21:16)
[2020-08-05] MEDS: THIAMINE HCL 100 MG TABLET (FP) PO SCH (21:16)
[2020-08-06] MEDS ORDERED: AMPICILLIN SODIUM 2 GM VIAL ONE ×4 (02:36→21:08)
[2020-08-06] MEDS ORDERED: SODIUM CHLORIDE 100 ML IVPB ONE ×4 (02:37→21:08)
[2020-08-06] MEDS: AMPICILLIN - 2 GM in SODIUM CHLORIDE 100 ML IVPB SCH ×4 (02:40→21:44)
[2020-08-06] MEDS ORDERED: LORazepam 0.5 MG TABLET PO ONE (05:00)
[2020-08-06] MEDS: GABAPENTIN 400 MG CAPSULE PO SCH ×3 (05:32→21:46)
[2020-08-06 07:42] LABS: BASO % 0.6 % (0-2.0); EOS % 6.1 % (0-4.5); HEMOGLOBIN 14.4 GM/dL (11.7-16.9); LYMPH % 26.7 % (8-40); MCH 28.6 pg (25.7-33.7); MCHC 32.1 g/dl (32.0-35.9); MEAN CELL VOLUME 89.2 fl (80-96); MEAN PLT VOLUME 9.8 fl (7.5-11.1); MONO % 9.6 % (3.8-10.2); PLATELET COUNT 137 K/MM3 (134-434); RBC 5.04 M/mm3 (4.00-5.60); RDW 16.4 % (11.9-15.9); WHITE BLOOD COUNT 5.6 K/mm3 (4.0-10.0)
[2020-08-06 07:59] LABS: POTASSIUM 3.5 mmol/L (3.5-5.1)
[2020-08-06 08:04] LABS: CALCIUM 9.1 mg/dL (8.5-10.1)
[2020-08-06 08:05] LABS: ALBUMIN 2.7 g/dl (3.4-5.0); BLOOD UREA NITROGEN 30.9 mg/dL (7-18); MAGNESIUM 2.3 mg/dL (1.8-2.4)
[2020-08-06 08:08] LABS: BILIRUBIN,TOTAL 0.3 mg/dL (0.2-1); CREATININE 1.7 mg/dL (0.55-1.3); TOT PROT 6.8 g/dl (6.4-8.2)
[2020-08-06] MEDS ORDERED: POTASSIUM CHLORIDE TABS 20 MEQ TABLET.ER (FP) PO ONE (08:30)
[2020-08-06] MEDS ORDERED: PT OWN MED DRAWER 7, Y5N ONE ×3 (08:38→21:09)
[2020-08-06] MEDS: APIXABAN 5 MG TABLET PO SCH ×2 (10:58→21:45)
[2020-08-06] MEDS: CLOPIDOGREL BISULFATE 75 MG TABLET (FP) PO SCH (10:58)
[2020-08-06] MEDS: AMIODARONE HCL 200 MG TABLET PO SCH ×2 (10:58→21:45)
[2020-08-06] MEDS: amLODIPine BESYLATE 10 MG TABLET (FP) PO SCH (10:58)
[2020-08-06] MEDS: FUROSEMIDE 40 MG TABLET (FP) PO SCH (10:58)
[2020-08-06] MEDS: FOLIC ACID 1 MG TABLET (FP) PO SCH (10:58)
[2020-08-06] MEDS: EMTRICITAB/RILPIVIRI/TENOF ALA (ODEFSEY) TABLET PO SCH (10:59)
[2020-08-06] MEDS: ATOVAQUONE 750 MG/5 ML (UNIT-DOSE PACKAGING) PO SCH (10:59)
[2020-08-06] MEDS: ERTAPENEM SODIUM 1 GM in SODIUM CHLORIDE 50 ML IVPB SCH (11:01)
[2020-08-06] MEDS: THIAMINE HCL 100 MG TABLET (FP) PO SCH (21:45)
[2020-08-06] MEDS: QUEtiapine FUMARATE 100 MG TABLET (FP) PO SCH (21:45)
[2020-08-07] MEDS ORDERED: SODIUM CHLORIDE 100 ML IVPB ONE ×3 (01:55→21:17)
[2020-08-07] MEDS ORDERED: AMPICILLIN SODIUM 2 GM VIAL ONE ×3 (01:55→21:17)
[2020-08-07] MEDS: AMPICILLIN - 2 GM in SODIUM CHLORIDE 100 ML IVPB SCH ×4 (02:00→21:22)
[2020-08-07] MEDS: GABAPENTIN 400 MG CAPSULE PO SCH ×3 (05:52→21:22)
[2020-08-07] MEDS ORDERED: PT OWN MED DRAWER 7, Y5N ONE ×7 (08:10→21:18)
[2020-08-07] MEDS ORDERED: POTASSIUM CHLORIDE TABS 20 MEQ TABLET.ER (FP) PO ONE (08:26)
[2020-08-07 10:06] LABS: BASO % 0.8 % (0-2.0); EOS % 7.2 % (0-4.5); HEMOGLOBIN 14.4 GM/dL (11.7-16.9); MCH 29.1 pg (25.7-33.7); MCHC 32.8 g/dl (32.0-35.9); MEAN CELL VOLUME 88.7 fl (80-96); MEAN PLT VOLUME 9.7 fl (7.5-11.1); MONO % 8.1 % (3.8-10.2); NEUT % 50.9 % (42.8-82.8); PLATELET COUNT 134 K/MM3 (134-434); RBC 4.96 M/mm3 (4.00-5.60); RDW 16.6 % (11.9-15.9); WHITE BLOOD COUNT 4.9 K/mm3 (4.0-10.0)
[2020-08-07 10:24] LABS: POTASSIUM 4.1 mmol/L (3.5-5.1)
[2020-08-07] MEDS: ATOVAQUONE 750 MG/5 ML (UNIT-DOSE PACKAGING) PO SCH (10:34)
[2020-08-07] MEDS: EMTRICITAB/RILPIVIRI/TENOF ALA (ODEFSEY) TABLET PO SCH (10:34)
[2020-08-07] MEDS: FUROSEMIDE 40 MG TABLET (FP) PO SCH (10:35)
[2020-08-07] MEDS: CLOPIDOGREL BISULFATE 75 MG TABLET (FP) PO SCH (10:35)
[2020-08-07] MEDS: AMIODARONE HCL 200 MG TABLET PO SCH ×2 (10:35→21:22)
[2020-08-07] MEDS: amLODIPine BESYLATE 10 MG TABLET (FP) PO SCH (10:35)
[2020-08-07] MEDS: FOLIC ACID 1 MG TABLET (FP) PO SCH (10:35)
[2020-08-07] MEDS: APIXABAN 5 MG TABLET PO SCH ×2 (10:35→21:22)
[2020-08-07] MEDS: ERTAPENEM SODIUM 1 GM in SODIUM CHLORIDE 50 ML IVPB SCH (10:41)
[2020-08-07 10:42] LABS: ALBUMIN 2.6 g/dl (3.4-5.0); BLOOD UREA NITROGEN 20.8 mg/dL (7-18)
[2020-08-07 10:44] LABS: MAGNESIUM 2.2 mg/dL (1.8-2.4); TOT PROT 6.7 g/dl (6.4-8.2)
[2020-08-07 10:45] LABS: CREATININE 1.7 mg/dL (0.55-1.3)
[2020-08-07 10:46] LABS: BILIRUBIN,TOTAL 0.5 mg/dL (0.2-1)
[2020-08-07] MEDS: THIAMINE HCL 100 MG TABLET (FP) PO SCH (21:22)
[2020-08-07] MEDS: QUEtiapine FUMARATE 100 MG TABLET (FP) PO SCH (21:22)
[2020-08-08] MEDS ORDERED: AMPICILLIN SODIUM 2 GM VIAL ONE ×4 (02:41→20:09)
[2020-08-08] MEDS ORDERED: SODIUM CHLORIDE 100 ML IVPB ONE ×4 (02:42→20:10)
[2020-08-08] MEDS: AMPICILLIN - 2 GM in SODIUM CHLORIDE 100 ML IVPB SCH ×4 (02:43→20:12)
[2020-08-08] MEDS ORDERED: PT OWN MED DRAWER 7, Y5N ONE ×4 (06:36→20:53)
[2020-08-08] MEDS: GABAPENTIN 400 MG CAPSULE PO SCH ×3 (06:45→21:01)
[2020-08-08 07:37] LABS: BASO % 0.8 % (0-2.0); HEMATOCRIT 41.9 % (35.4-49); HEMOGLOBIN 13.6 GM/dL (11.7-16.9); MCH 28.6 pg (25.7-33.7); MCHC 32.4 g/dl (32.0-35.9); MEAN CELL VOLUME 88.2 fl (80-96); MEAN PLT VOLUME 9.6 fl (7.5-11.1); MONO % 9.3 % (3.8-10.2); NEUT % 48.9 % (42.8-82.8); PLATELET COUNT 125 K/MM3 (134-434); POTASSIUM 4.2 mmol/L (3.5-5.1); RBC 4.75 M/mm3 (4.00-5.60); RDW 16.2 % (11.9-15.9); WHITE BLOOD COUNT 4.5 K/mm3 (4.0-10.0)
[2020-08-08 07:52] LABS: ALBUMIN 2.5 g/dl (3.4-5.0); BLOOD UREA NITROGEN 21.8 mg/dL (7-18); CALCIUM 8.7 mg/dL (8.5-10.1); MAGNESIUM 2.3 mg/dL (1.8-2.4)
[2020-08-08 07:55] LABS: CREATININE 1.7 mg/dL (0.55-1.3)
[2020-08-08 08:00] LABS: TOT PROT 6.3 g/dl (6.4-8.2)
[2020-08-08 08:01] LABS: BILIRUBIN,TOTAL 0.3 mg/dL (0.2-1)
[2020-08-08] MEDS: ATOVAQUONE 750 MG/5 ML (UNIT-DOSE PACKAGING) PO SCH (10:17)
[2020-08-08] MEDS: APIXABAN 5 MG TABLET PO SCH ×2 (10:18→21:01)
[2020-08-08] MEDS: CLOPIDOGREL BISULFATE 75 MG TABLET (FP) PO SCH (10:18)
[2020-08-08] MEDS: CARVEDILOL 3.125 MG TABLET (FP) PO SCH ×2 (10:18→21:00)
[2020-08-08] MEDS: amLODIPine BESYLATE 10 MG TABLET (FP) PO SCH (10:18)
[2020-08-08] MEDS: EMTRICITAB/RILPIVIRI/TENOF ALA (ODEFSEY) TABLET PO SCH (10:18)
[2020-08-08] MEDS: FOLIC ACID 1 MG TABLET (FP) PO SCH (10:18)
[2020-08-08] MEDS: FUROSEMIDE 40 MG TABLET (FP) PO SCH (10:18)
[2020-08-08] MEDS: ERTAPENEM SODIUM 1 GM in SODIUM CHLORIDE 50 ML IVPB SCH (11:29)
[2020-08-08] MEDS: THIAMINE HCL 100 MG TABLET (FP) PO SCH (21:01)
[2020-08-08] MEDS: QUEtiapine FUMARATE 100 MG TABLET (FP) PO SCH (21:01)
[2020-08-09] MEDS ORDERED: AMPICILLIN SODIUM 2 GM VIAL ONE ×4 (02:20→20:50)
[2020-08-09] MEDS ORDERED: SODIUM CHLORIDE 100 ML IVPB ONE ×4 (02:20→20:50)
[2020-08-09] MEDS: AMPICILLIN - 2 GM in SODIUM CHLORIDE 100 ML IVPB SCH ×4 (02:30→21:32)
[2020-08-09] MEDS: GABAPENTIN 400 MG CAPSULE PO SCH ×3 (05:57→21:37)
[2020-08-09] MEDS ORDERED: AMIODARONE HCL 200 MG TABLET PO SCH (10:00)
[2020-08-09] MEDS ORDERED: PT OWN MED DRAWER 7, Y5N ONE ×2 (10:19→21:36)
[2020-08-09] MEDS: APIXABAN 5 MG TABLET PO SCH ×2 (10:23→21:34)
[2020-08-09] MEDS: CLOPIDOGREL BISULFATE 75 MG TABLET (FP) PO SCH (10:23)
[2020-08-09] MEDS: FUROSEMIDE 40 MG TABLET (FP) PO SCH (10:23)
[2020-08-09] MEDS: amLODIPine BESYLATE 10 MG TABLET (FP) PO SCH (10:23)
[2020-08-09] MEDS: FOLIC ACID 1 MG TABLET (FP) PO SCH (10:23)
[2020-08-09] MEDS: CARVEDILOL 3.125 MG TABLET (FP) PO SCH ×2 (10:23→21:33)
[2020-08-09] MEDS: EMTRICITAB/RILPIVIRI/TENOF ALA (ODEFSEY) TABLET PO SCH (10:26)
[2020-08-09] MEDS: ERTAPENEM SODIUM 1 GM in SODIUM CHLORIDE 50 ML IVPB SCH (11:16)
[2020-08-09] MEDS: ATOVAQUONE 750 MG/5 ML (UNIT-DOSE PACKAGING) PO SCH (12:46)
[2020-08-09] MEDS: THIAMINE HCL 100 MG TABLET (FP) PO SCH (21:33)
[2020-08-09] MEDS: QUEtiapine FUMARATE 100 MG TABLET (FP) PO SCH (21:34)
[2020-08-10] MEDS ORDERED: SODIUM CHLORIDE 100 ML IVPB ONE ×4 (01:09→20:07)
[2020-08-10] MEDS ORDERED: AMPICILLIN SODIUM 2 GM VIAL ONE ×4 (01:09→20:07)
[2020-08-10] MEDS: AMPICILLIN - 2 GM in SODIUM CHLORIDE 100 ML IVPB SCH ×4 (02:01→20:11)
[2020-08-10] MEDS ORDERED: PT OWN MED DRAWER 7, Y5N ONE ×3 (05:41→21:18)
[2020-08-10] MEDS: GABAPENTIN 400 MG CAPSULE PO SCH ×3 (05:54→21:20)
[2020-08-10 08:35] LABS: BASO % 0.8 % (0-2.0); EOS % 5.3 % (0-4.5); HEMATOCRIT 41.8 % (35.4-49); HEMOGLOBIN 13.7 GM/dL (11.7-16.9); LYMPH % 37.5 % (8-40); MCH 28.9 pg (25.7-33.7); MCHC 32.8 g/dl (32.0-35.9); MEAN CELL VOLUME 88.1 fl (80-96); MEAN PLT VOLUME 9.8 fl (7.5-11.1); MONO % 8.9 % (3.8-10.2); NEUT % 47.5 % (42.8-82.8); PLATELET COUNT 126 K/MM3 (134-434); RBC 4.74 M/mm3 (4.00-5.60); RDW 16.2 % (11.9-15.9); WHITE BLOOD COUNT 4.1 K/mm3 (4.0-10.0)
[2020-08-10 09:01] LABS: POTASSIUM 3.9 mmol/L (3.5-5.1)
[2020-08-10 09:09] LABS: CALCIUM 8.9 mg/dL (8.5-10.1)
[2020-08-10 09:10] LABS: ALBUMIN 2.5 g/dl (3.4-5.0); BLOOD UREA NITROGEN 16.3 mg/dL (7-18); MAGNESIUM 2.2 mg/dL (1.8-2.4)
[2020-08-10 09:12] LABS: CREATININE 1.4 mg/dL (0.55-1.3)
[2020-08-10 09:14] LABS: BILIRUBIN,TOTAL 0.4 mg/dL (0.2-1); TOT PROT 6.7 g/dl (6.4-8.2)
[2020-08-10] MEDS: CARVEDILOL 3.125 MG TABLET (FP) PO SCH ×2 (09:52→21:19)
[2020-08-10] MEDS: FUROSEMIDE 40 MG TABLET (FP) PO SCH (09:52)
[2020-08-10] MEDS: FOLIC ACID 1 MG TABLET (FP) PO SCH (09:52)
[2020-08-10] MEDS: CLOPIDOGREL BISULFATE 75 MG TABLET (FP) PO SCH (09:52)
[2020-08-10] MEDS: amLODIPine BESYLATE 10 MG TABLET (FP) PO SCH (09:52)
[2020-08-10] MEDS: ATOVAQUONE 750 MG/5 ML (UNIT-DOSE PACKAGING) PO SCH (09:52)
[2020-08-10] MEDS: APIXABAN 5 MG TABLET PO SCH ×2 (09:52→21:19)
[2020-08-10] MEDS: EMTRICITAB/RILPIVIRI/TENOF ALA (ODEFSEY) TABLET PO SCH (09:53)
[2020-08-10] MEDS: ERTAPENEM SODIUM 1 GM in SODIUM CHLORIDE 50 ML IVPB SCH (11:00)
[2020-08-10] MEDS: QUEtiapine FUMARATE 100 MG TABLET (FP) PO SCH (21:19)
[2020-08-10] MEDS: THIAMINE HCL 100 MG TABLET (FP) PO SCH (21:19)
[2020-08-11] MEDS ORDERED: SODIUM CHLORIDE 100 ML IVPB ONE ×2 (02:34→08:23)
[2020-08-11] MEDS ORDERED: AMPICILLIN SODIUM 2 GM VIAL ONE ×2 (02:34→08:22)
[2020-08-11] MEDS: AMPICILLIN - 2 GM in SODIUM CHLORIDE 100 ML IVPB SCH ×2 (02:36→11:30)
[2020-08-11] MEDS ORDERED: PT OWN MED DRAWER 7, Y5N ONE ×5 (04:23→22:25)
[2020-08-11] MEDS: GABAPENTIN 400 MG CAPSULE PO SCH ×3 (06:20→22:34)
[2020-08-11 07:04] LABS: BASO % 0.7 % (0-2.0); EOS % 5.6 % (0-4.5); HEMATOCRIT 41.9 % (35.4-49); HEMOGLOBIN 13.5 GM/dL (11.7-16.9); LYMPH % 38.5 % (8-40); MCH 28.6 pg (25.7-33.7); MCHC 32.1 g/dl (32.0-35.9); MEAN PLT VOLUME 10.2 fl (7.5-11.1); MONO % 9.1 % (3.8-10.2); NEUT % 46.1 % (42.8-82.8); PLATELET COUNT 128 K/MM3 (134-434); RBC 4.71 M/mm3 (4.00-5.60); RDW 16.4 % (11.9-15.9); WHITE BLOOD COUNT 4.4 K/mm3 (4.0-10.0)
[2020-08-11 07:30] LABS: CALCIUM 8.9 mg/dL (8.5-10.1)
[2020-08-11 07:31] LABS: ALBUMIN 2.6 g/dl (3.4-5.0); BLOOD UREA NITROGEN 16.2 mg/dL (7-18); MAGNESIUM 2.1 mg/dL (1.8-2.4)
[2020-08-11 07:33] LABS: CREATININE 1.4 mg/dL (0.55-1.3)
[2020-08-11 07:34] LABS: TOT PROT 6.8 g/dl (6.4-8.2)
[2020-08-11] MEDS: FOLIC ACID 1 MG TABLET (FP) PO SCH (11:28)
[2020-08-11] MEDS: FUROSEMIDE 40 MG TABLET (FP) PO SCH (11:28)
[2020-08-11] MEDS: CLOPIDOGREL BISULFATE 75 MG TABLET (FP) PO SCH (11:28)
[2020-08-11] MEDS: APIXABAN 5 MG TABLET PO SCH ×2 (11:28→22:34)
[2020-08-11] MEDS: CARVEDILOL 3.125 MG TABLET (FP) PO SCH ×2 (11:28→22:34)
[2020-08-11] MEDS: amLODIPine BESYLATE 10 MG TABLET (FP) PO SCH (11:28)
[2020-08-11] MEDS: EMTRICITAB/RILPIVIRI/TENOF ALA (ODEFSEY) TABLET PO SCH (11:29)
[2020-08-11] MEDS: ERTAPENEM SODIUM 1 GM in SODIUM CHLORIDE 50 ML IVPB SCH (11:29)
[2020-08-11] MEDS: ATOVAQUONE 750 MG/5 ML (UNIT-DOSE PACKAGING) PO SCH (11:30)
[2020-08-11] MEDS: THIAMINE HCL 100 MG TABLET (FP) PO SCH (22:34)
[2020-08-11] MEDS: QUEtiapine FUMARATE 100 MG TABLET (FP) PO SCH (22:34)
[2020-08-12] MEDS ORDERED: PT OWN MED DRAWER 7, Y5N ONE ×4 (01:10→09:51)
[2020-08-12] MEDS: GABAPENTIN 400 MG CAPSULE PO SCH ×3 (05:58→21:57)
[2020-08-12] MEDS: APIXABAN 5 MG TABLET PO SCH ×2 (09:52→21:56)
[2020-08-12] MEDS: CARVEDILOL 3.125 MG TABLET (FP) PO SCH ×2 (09:52→21:56)
[2020-08-12] MEDS: amLODIPine BESYLATE 10 MG TABLET (FP) PO SCH (09:52)
[2020-08-12] MEDS: FUROSEMIDE 40 MG TABLET (FP) PO SCH (09:52)
[2020-08-12] MEDS: CLOPIDOGREL BISULFATE 75 MG TABLET (FP) PO SCH (09:52)
[2020-08-12] MEDS: FOLIC ACID 1 MG TABLET (FP) PO SCH (09:52)
[2020-08-12] MEDS: EMTRICITAB/RILPIVIRI/TENOF ALA (ODEFSEY) TABLET PO SCH (09:53)
[2020-08-12] MEDS ORDERED: FAMOTIDINE 20 MG TABLET PO SCH ×2 (10:00→13:15)
[2020-08-12 11:51] LABS: BASO % 0.8 % (0-2.0); EOS % 4.6 % (0-4.5); LYMPH % 29.2 % (8-40); MCH 28.6 pg (25.7-33.7); MCHC 31.9 g/dl (32.0-35.9); MEAN CELL VOLUME 89.6 fl (80-96); MEAN PLT VOLUME 10.1 fl (7.5-11.1); MONO % 6.2 % (3.8-10.2); NEUT % 59.2 % (42.8-82.8); RBC 5.25 M/mm3 (4.00-5.60); RDW 16.6 % (11.9-15.9); WHITE BLOOD COUNT 7.4 K/mm3 (4.0-10.0)
[2020-08-12 11:58] LABS: INR 1.05 (0.83-1.09); PROTHROMBIN TIME (PATIENT) 12.7 SEC (9.7-13.0)
[2020-08-12 12:08] LABS: POTASSIUM 4.5 mmol/L (3.5-5.1)
[2020-08-12 12:12] LABS: ALBUMIN 2.9 g/dl (3.4-5.0); BLOOD UREA NITROGEN 17.5 mg/dL (7-18); CALCIUM 9.8 mg/dL (8.5-10.1); MAGNESIUM 2.2 mg/dL (1.8-2.4)
[2020-08-12 12:14] LABS: CREATININE 1.3 mg/dL (0.55-1.3)
[2020-08-12 12:16] LABS: BILIRUBIN,DIRECT 0.2 mg/dL (0.0-0.2)
[2020-08-12 12:16] LABS: BILIRUBIN,TOTAL 0.5 mg/dL (0.2-1); TOT PROT 7.8 g/dl (6.4-8.2)
[2020-08-12 12:18] LABS: BILIRUBIN,TOTAL 0.5 mg/dL (0.2-1)
[2020-08-12 12:19] LABS: TOT PROT 8.1 g/dl (6.4-8.2)
[2020-08-12 12:33] LABS: PLATELET COUNT 155 K/MM3 (134-434); PLATELET ESTIMATE ADEQUATE
[2020-08-12] MEDS ORDERED: ALBUTEROL SO4 0.083% IH SOL 2.5 MG/3 ML VIAL.NEB. NEB PRN (13:01)
[2020-08-12] MEDS ORDERED: LACTULOSE 20 GM/30 ML UDC (FOR ORAL USE ONLY) PO PRN (14:08)
[2020-08-12] MEDS ORDERED: QUEtiapine FUMARATE 100 MG TABLET (FP) PO SCH (22:00)
[2020-08-12] MEDS ORDERED: THIAMINE HCL 100 MG TABLET (FP) PO SCH (22:00)
[2020-08-13] MEDS: GABAPENTIN 400 MG CAPSULE PO SCH ×2 (06:42→13:40)
[2020-08-13 07:50] VITALS: BP 134/88; PULSE 66; TEMP 97.8
[2020-08-13] MEDS ORDERED: EMTRICITAB/RILPIVIRI/TENOF ALA (ODEFSEY) TABLET PO SCH (08:00)
[2020-08-13] MEDS: APIXABAN 5 MG TABLET PO SCH (09:02)
[2020-08-13] MEDS: CARVEDILOL 3.125 MG TABLET (FP) PO SCH (09:03)
[2020-08-13] MEDS ORDERED: amLODIPine BESYLATE 10 MG TABLET (FP) PO SCH (10:00)
[2020-08-13] MEDS ORDERED: CLOPIDOGREL BISULFATE 75 MG TABLET (FP) PO SCH (10:00)
[2020-08-13] MEDS ORDERED: FOLIC ACID 1 MG TABLET (FP) PO SCH (10:00)
[2020-08-13] MEDS ORDERED: FUROSEMIDE 40 MG TABLET (FP) PO SCH (10:00)
== END 2020-08-13 15:28 | disposition home or self-care (01) | DRG 698 ==
LOC: JER 16:39 → JERBED 23:47 → J4S 07-31 20:16 → J6S 08-12 13:44
PROVIDERS: ADMIT Internal Medicine; ATTEND Nurse Practitioner Family
DX: T83.511A Infection and inflammatory reaction due to indwelling urethral catheter, initial encounter (principal); I50.21 Acute systolic (congestive) heart failure; G93.41 Metabolic encephalopathy; B20 Human immunodeficiency virus [HIV] disease; I13.0 Hypertensive heart and chronic kidney disease with heart failure and stage 1 through stage 4 chronic kidney disease, or unspecified chronic kidney disease; E87.2 Acidosis; N17.9 Acute kidney failure, unspecified; I47.1 Supraventricular tachycardia; R78.81 Bacteremia; F10.232 Alcohol dependence with withdrawal with perceptual disturbance; N39.0 Urinary tract infection, site not specified; N18.9 Chronic kidney disease, unspecified; F14.90 Cocaine use, unspecified, uncomplicated; Y83.9 Surgical procedure, unspecified as the cause of abnormal reaction of the patient, or of later complication, without mention of misadventure at the time of the procedure; R41.82 Altered mental status, unspecified; I48.0 Paroxysmal atrial fibrillation; R74.01 Elevation of levels of liver transaminase levels
CPT/HCPCS: 36415; 36600; 70450-TC; 71045-TC-FY; 71250-TC; 72125-TC; 74176-TC; 76705-TC; 76775-TC; 80048; 80053; 80074; 80076; 80307; 81003; 82140; 82550; 82553; 82803; 82962; 83605; 83735; 83880; 84100; 84484; 85025; 85027; 85610; 85730; 86359; 86360; 86803; 87040; 87086; 87186; 93005; 93010; 93306-TC; 93880-TC; 94640; 97116-GP; 97162-GP; 99291; 99292; C9803; G0480; U0003